=== PATIENT | female | born 1935 | race African-American/Black ===

== ENCOUNTER 2020-09-25 10:11 | Inpatient (IN) | payer MEDICARE, MEDICAID ==
[~2020-09-25] VITALS: Ht 170.2 cm; Wt 76.2 kg
[~2020-09-25 10:11] MED LIST: ALBU05 IH; AMBR5TAB3 PO; AMLO5TAB4 PO; ASPI-1079 PO; BUPR-102 PO; BUSP5TAB3 PO; CLON-457 PO; FAMO40TA7 PO; FURO-151 PO; HYDR30CR RC; LOVA20TA2 PO; POTA20TA12 PO; TIOT18CA3 IH; VIAG25 PO
[2020-09-25] MEDS ORDERED: ONDANSETRON HCL 4MG/2ML INJ IV ONE (11:00)
[2020-09-25 11:02] LABS: HEMATOCRIT. 45.2 % (36.0-48.0); HEMOGLOBIN. 14.7 g/dL (12.0-16.0); MEAN CORPUSCULAR HEMOGLOBIN 28.8 pg (28.0-32.0); MEAN CORPUSCULAR VOLUME 88.7 fL (81.0-99.0); MEAN PLATELET VOLUME 8.6 fl (7.4-10.4); PLATELET 140 x1000/uL (130-400); RED CELL DISTRIBUTION WIDTH 19.4 % (11.6-14.6)
[2020-09-25 11:07] LABS: CHLORIDE 105 mEq/L (98-107)
[2020-09-25 11:12] LABS: INR 1.1; PROTHROMBIN TIME 11.2 sec (9.6-11.0)
[2020-09-25 12:15] LABS: CLARITY URINE CLEAR (CLEAR); COLOR URINE YELLOW (YELLOW); KETONES URINE NEGATIVE (NEGATIVE); LEUKOCYTE ESTERASE URINE 3+ (NEGATIVE); NITRITE URINE NEGATIVE (NEGATIVE); OCCULT BLOOD URINE TRACE (NEGATIVE); PH URINE 7.5 (4.5-8.0); PROTEIN URINE 1+ (NEGATIVE)
[2020-09-25 12:41] LABS: ATYPICAL LYMPHOCYTES 1; PLATELET ESTIMATE NORMAL
[2020-09-25] MEDS ORDERED: CEFTRIAXONE 1 G PREMIX 50 ML IV ONE (12:45)
[2020-09-25] MEDS ORDERED: ONDANSETRON HCL 4MG/2ML INJ IV PRN (14:00)
[2020-09-25] MEDS ORDERED: DOCUSATE SODIUM 100MG CAPSULE PO PRN (14:00)
[2020-09-25] MEDS ORDERED: LEVOFLOXACIN 500MG PREMIX 100 ML IV NR (14:00)
[2020-09-25] MEDS ORDERED: FAMOTIDINE 40MG TABLET PO SCH (14:00)
[2020-09-25] MEDS ORDERED: MAGNESIUM/ALUMINUM HYDROXIDE/SIMETHICONE 30ML UDC PO PRN (14:00)
[2020-09-25] MEDS ORDERED: ALBUTEROL (0.5%) 2.5MG/0.5ML NEB HHN PRN (14:00)
[2020-09-25] MEDS ORDERED: GUAIFENESIN 200MG/10ML SUGAR FREE UDC PO PRN (14:00)
[2020-09-25] MEDS ORDERED: ACETAMINOPHEN 325MG TABLET PO PRN (14:00)
[2020-09-25] MEDS ORDERED: CLONIDINE 0.1MG TABLET PO PRN (14:00)
[2020-09-25] MEDS: BUSPIRONE HCL 5MG TABLET PO SCH (14:58)
[2020-09-25] MEDS: FUROSEMIDE 40MG/4ML VIAL IVP SCH (14:58)
[2020-09-25] MEDS: FAMOTIDINE 20MG TABLET PO SCH (14:58)
[2020-09-25] MEDS: AMLODIPINE 5MG TABLET PO SCH (21:35)
[2020-09-25] MEDS: ATORVASTATIN CALCIUM 10MG TABLET PO SCH (21:35)
[2020-09-26] VITALS (7 sets, daily range): BP systolic 129–154; BP diastolic 81–97
[2020-09-26] MEDS ORDERED: RIOC2.5T MT (01:25)
[2020-09-26] MEDS ORDERED: PRED10TA MT (01:25)
[2020-09-26] MEDS ORDERED: ASPI-1406 PO (01:25)
[2020-09-26] MEDS: FUROSEMIDE 40MG/4ML VIAL IVP SCH ×2 (06:21→18:05)
[2020-09-26 06:30] LABS: HEMOGLOBIN. 15.1 g/dL (12.0-16.0); MEAN CORPUSCULAR HEMOGLOBIN 29.1 pg (28.0-32.0); MEAN CORPUSCULAR VOLUME 88.2 fL (81.0-99.0); MEAN PLATELET VOLUME 8.8 fl (7.4-10.4); PLATELET 141 x1000/uL (130-400); RED BLOOD CELL COUNT 5.21 mill/uL (4.2-5.4); RED CELL DISTRIBUTION WIDTH 18.8 % (11.6-14.6)
[2020-09-26 06:39] LABS: CHLORIDE 103 mEq/L (98-107)
[2020-09-26] MEDS ORDERED: FUROSEMIDE 40MG TABLET PO SCH (09:00)
[2020-09-26] MEDS: AMLODIPINE 5MG TABLET PO SCH (09:23)
[2020-09-26] MEDS: ASPIRIN 81MG TABLET PO SCH (09:24)
[2020-09-26] MEDS: FAMOTIDINE 20MG TABLET PO SCH (09:24)
[2020-09-26] MEDS: BUSPIRONE HCL 5MG TABLET PO SCH (09:24)
[2020-09-26] MEDS: LEVOFLOXACIN 250MG PREMIX 50 ML IV SCH ×2 (11:00→18:07)
[2020-09-26] MEDS: DILTIAZEM HCL 60MG TABLET PO SCH ×2 (12:03→20:49)
[2020-09-26] MEDS ORDERED: LORA-250 PO (13:58)
[2020-09-26] MEDS ORDERED: BACL-141 PO (13:58)
[2020-09-26] MEDS ORDERED: SILDENAFIL CITRATE 20MG TABLET PO SCH (14:00)
[2020-09-26] MEDS ORDERED: DILTIAZEM HCL 60MG TABLET PO SCH (14:00)
[2020-09-26] MEDS ORDERED: RIOC2.5T PO (14:02)
[2020-09-26] MEDS ORDERED: *PATIENT'S OWN MEDICATION STORAGE XX SCH (14:30)
[2020-09-26] MEDS ORDERED: BACLOFEN 10MG TABLET PO PRN (14:45)
[2020-09-26] MEDS: AMBRISENTAN 10MG TABLET PO SCH (18:05)
[2020-09-26] MEDS: LORAZEPAM 1MG TABLET PO SCH (18:05)
[2020-09-26] MEDS: ATORVASTATIN CALCIUM 10MG TABLET PO SCH (20:49)
[2020-09-26] MEDS: HEMORRHOIDAL SUPP PR SCH (20:49)
[2020-09-27] VITALS: BP 110/82
[2020-09-27 00:06] LABS: PLATELET ESTIMATE NORMAL
[2020-09-27 04:30] VITALS: BP 135/93
[2020-09-27] MEDS: DILTIAZEM HCL 60MG TABLET PO SCH ×3 (06:16→20:46)
[2020-09-27] MEDS: FUROSEMIDE 40MG/4ML VIAL IVP SCH ×2 (06:16→16:32)
[2020-09-27 08:00] VITALS: BP 127/73
[2020-09-27] MEDS: LORAZEPAM 1MG TABLET PO SCH ×2 (08:00→16:32)
[2020-09-27] MEDS: LOSARTAN POTASSIUM 25 MG TABLET PO SCH (08:00)
[2020-09-27] MEDS: FAMOTIDINE 20MG TABLET PO SCH (08:00)
[2020-09-27] MEDS: AMBRISENTAN 10MG TABLET PO SCH (08:00)
[2020-09-27] MEDS: HEMORRHOIDAL SUPP PR SCH ×2 (08:00→20:46)
[2020-09-27] MEDS: BUSPIRONE HCL 5MG TABLET PO SCH (08:00)
[2020-09-27] MEDS: ASPIRIN 81MG TABLET PO SCH (08:00)
[2020-09-27 08:06] LABS: CHLORIDE 102 mEq/L (98-107)
[2020-09-27 08:37] LABS: HEMATOCRIT. 48.2 % (36.0-48.0); HEMOGLOBIN. 15.5 g/dL (12.0-16.0); MEAN CORPUSCULAR HEMOGLOBIN 28.5 pg (28.0-32.0); MEAN CORPUSCULAR VOLUME 88.4 fL (81.0-99.0); MEAN PLATELET VOLUME 8.6 fl (7.4-10.4); PLATELET 112 x1000/uL (130-400); RED BLOOD CELL COUNT 5.45 mill/uL (4.2-5.4); RED CELL DISTRIBUTION WIDTH 19.2 % (11.6-14.6)
[2020-09-27] MEDS: LEVOFLOXACIN 250MG PREMIX 50 ML IV SCH (10:39)
[2020-09-27] MEDS ORDERED: POTASSIUM CHLORIDE 20MEQ TABLET SR PO NR (11:15)
[2020-09-27 12:00] VITALS: BP 150/81
[2020-09-27] MEDS: TRAMADOL 50MG TABLET PO PRN (13:14)
[2020-09-27 14:21] LABS: PLATELET ESTIMATE SLIGHTLY DECREASED
[2020-09-27 16:00] VITALS: BP 125/79
[2020-09-27] MEDS: HYDROMORPHONE HCL/PF 2MG/ML CPJ IV PRN (17:14)
[2020-09-27 20:13] VITALS: BP 137/87
[2020-09-27] MEDS: ATORVASTATIN CALCIUM 10MG TABLET PO SCH (20:46)
[2020-09-28] VITALS: BP 125/88
[2020-09-28] MEDS: HYDROMORPHONE HCL/PF 2MG/ML CPJ IV PRN ×3 (03:17→17:09)
[2020-09-28 03:59] VITALS: BP 133/83
[2020-09-28] MEDS: FUROSEMIDE 40MG/4ML VIAL IVP SCH ×2 (06:06→18:58)
[2020-09-28] MEDS: DILTIAZEM HCL 60MG TABLET PO SCH ×3 (06:06→21:08)
[2020-09-28 07:07] LABS: CLARITY URINE CLEAR (CLEAR); COLOR URINE YELLOW (YELLOW); KETONES URINE NEGATIVE (NEGATIVE); LEUKOCYTE ESTERASE URINE TRACE (NEGATIVE); NITRITE URINE NEGATIVE (NEGATIVE); OCCULT BLOOD URINE NEGATIVE (NEGATIVE); PROTEIN URINE 1+ (NEGATIVE); UROBILINOGEN URINE 0.2 E.U./dL (0.2-1.0)
[2020-09-28 08:00] VITALS: BP 124/90
[2020-09-28] MEDS: ASPIRIN 81MG TABLET PO SCH (08:20)
[2020-09-28] MEDS: AMBRISENTAN 10MG TABLET PO SCH (08:20)
[2020-09-28] MEDS: LORAZEPAM 1MG TABLET PO SCH ×2 (08:20→18:58)
[2020-09-28] MEDS: HEMORRHOIDAL SUPP PR SCH ×2 (08:20→21:11)
[2020-09-28] MEDS: BUSPIRONE HCL 5MG TABLET PO SCH (08:20)
[2020-09-28] MEDS: LOSARTAN POTASSIUM 25 MG TABLET PO SCH (08:20)
[2020-09-28 11:23] LABS: CHLORIDE 102 mEq/L (98-107)
[2020-09-28 12:00] VITALS: BP 123/94
[2020-09-28] MEDS: FAMOTIDINE 20MG TABLET PO SCH (12:21)
[2020-09-28] MEDS: LEVOFLOXACIN 250MG PREMIX 50 ML IV SCH (12:21)
[2020-09-28 16:00] VITALS: BP 124/70
[2020-09-28 20:48] VITALS: BP 122/87
[2020-09-28] MEDS: ATORVASTATIN CALCIUM 10MG TABLET PO SCH (21:08)
[2020-09-28] MEDS: POTASSIUM CHLORIDE 20MEQ TABLET SR PO SCH (21:08)
[2020-09-29] VITALS: BP 115/69
[2020-09-29 04:00] VITALS: BP 119/73
[2020-09-29] MEDS: DILTIAZEM HCL 60MG TABLET PO SCH ×3 (06:28→21:12)
[2020-09-29] MEDS: FUROSEMIDE 40MG/4ML VIAL IVP SCH ×2 (06:29→17:58)
[2020-09-29 07:58] VITALS: BP 117/82
[2020-09-29] MEDS: POTASSIUM CHLORIDE 20MEQ TABLET SR PO SCH (08:32)
[2020-09-29] MEDS: LORAZEPAM 1MG TABLET PO SCH ×2 (08:32→17:58)
[2020-09-29] MEDS: BUSPIRONE HCL 5MG TABLET PO SCH (08:32)
[2020-09-29] MEDS: ASPIRIN 81MG TABLET PO SCH (08:32)
[2020-09-29] MEDS: HEMORRHOIDAL SUPP PR SCH ×2 (08:33→21:12)
[2020-09-29] MEDS: AMBRISENTAN 10MG TABLET PO SCH (08:33)
[2020-09-29] MEDS: LOSARTAN POTASSIUM 25 MG TABLET PO SCH (08:33)
[2020-09-29] MEDS: FAMOTIDINE 20MG TABLET PO SCH (08:33)
[2020-09-29] MEDS ORDERED: POTASSIUM CHLORIDE 20MEQ TABLET SR PO SCH (10:00)
[2020-09-29] MEDS: TRAMADOL 50MG TABLET PO PRN ×2 (10:26→17:59)
[2020-09-29] MEDS: LEVOFLOXACIN 250MG TABLET PO SCH (10:27)
[2020-09-29 12:09] VITALS: BP 121/80
[2020-09-29] MEDS ORDERED: FLUCONAZOLE 100MG TABLET PO NR (12:30)
[2020-09-29] MEDS: PHENAZOPYRIDINE HCL 100MG TABLET PO SCH ×2 (14:24→17:59)
[2020-09-29 16:10] VITALS: BP 145/85
[2020-09-29 16:47] LABS: FOLIC ACID (FOLATE) SERUM 19.5 ng/mL (>5.38)
[2020-09-29 20:00] VITALS: BP 127/80
[2020-09-29] MEDS: ATORVASTATIN CALCIUM 10MG TABLET PO SCH (21:12)
[2020-09-30] VITALS: BP 123/77
[2020-09-30] MEDS: TRAMADOL 50MG TABLET PO PRN (02:42)
[2020-09-30 04:00] VITALS: BP 149/94
[2020-09-30] MEDS: FUROSEMIDE 40MG/4ML VIAL IVP SCH ×2 (06:39→11:42)
[2020-09-30] MEDS: DILTIAZEM HCL 60MG TABLET PO SCH (06:39)
[2020-09-30 06:47] LABS: HEMATOCRIT. 47.5 % (36.0-48.0); HEMOGLOBIN. 15.5 g/dL (12.0-16.0); MEAN CORPUSCULAR HEMOGLOBIN 28.8 pg (28.0-32.0); MEAN CORPUSCULAR VOLUME 88.1 fL (81.0-99.0); MEAN PLATELET VOLUME 9.4 fl (7.4-10.4); PLATELET 124 x1000/uL (130-400); RED CELL DISTRIBUTION WIDTH 19.1 % (11.6-14.6)
[2020-09-30 08:06] VITALS: BP 158/97
[2020-09-30] MEDS: PHENAZOPYRIDINE HCL 100MG TABLET PO SCH ×3 (08:48→17:43)
[2020-09-30] MEDS: FAMOTIDINE 20MG TABLET PO SCH (08:48)
[2020-09-30] MEDS: BUSPIRONE HCL 5MG TABLET PO SCH (08:48)
[2020-09-30] MEDS: LOSARTAN POTASSIUM 25 MG TABLET PO SCH (08:48)
[2020-09-30] MEDS: ASPIRIN 81MG TABLET PO SCH (08:48)
[2020-09-30] MEDS: LORAZEPAM 1MG TABLET PO SCH ×2 (08:49→17:43)
[2020-09-30] MEDS: AMBRISENTAN 10MG TABLET PO SCH (08:49)
[2020-09-30] MEDS: POTASSIUM CHLORIDE 20MEQ TABLET SR PO SCH (08:49)
[2020-09-30] MEDS: HEMORRHOIDAL SUPP PR SCH ×2 (08:49→21:50)
[2020-09-30] MEDS: LEVOFLOXACIN 250MG TABLET PO SCH (11:43)
[2020-09-30] MEDS: DILTIAZEM HCL 90MG TABLET PO SCH ×2 (11:43→21:50)
[2020-09-30 11:59] VITALS: BP 130/89
[2020-09-30] MEDS ORDERED: CYANOCOBALAMIN 1000MCG/ML VIAL IM SCH (13:00)
[2020-09-30 16:06] VITALS: BP 126/85
[2020-09-30 18:37] LABS: PLATELET ESTIMATE DECREASED
[2020-09-30 20:00] VITALS: BP 132/85
[2020-09-30] MEDS: ATORVASTATIN CALCIUM 10MG TABLET PO SCH (21:50)
[2020-10-01] VITALS (7 sets, daily range): BP systolic 99–150; BP diastolic 65–96
[2020-10-01] MEDS: DILTIAZEM HCL 90MG TABLET PO SCH ×3 (06:24→21:13)
[2020-10-01 08:59] LABS: HEMATOCRIT. 48.8 % (36.0-48.0); HEMOGLOBIN. 15.5 g/dL (12.0-16.0); MEAN CORPUSCULAR HEMOGLOBIN 28.2 pg (28.0-32.0); MEAN CORPUSCULAR VOLUME 88.5 fL (81.0-99.0); MEAN PLATELET VOLUME 9.4 fl (7.4-10.4); PLATELET 127 x1000/uL (130-400); RED BLOOD CELL COUNT 5.51 mill/uL (4.2-5.4)
[2020-10-01] MEDS ORDERED: LOSARTAN POTASSIUM 50 MG TABLET PO SCH (09:00)
[2020-10-01] MEDS: LORAZEPAM 1MG TABLET PO SCH ×2 (09:37→17:07)
[2020-10-01] MEDS: HEMORRHOIDAL SUPP PR SCH ×2 (09:37→21:33)
[2020-10-01] MEDS: ASPIRIN 81MG TABLET PO SCH (09:37)
[2020-10-01] MEDS: AMBRISENTAN 10MG TABLET PO SCH (09:37)
[2020-10-01] MEDS: FAMOTIDINE 20MG TABLET PO SCH (09:37)
[2020-10-01] MEDS: PHENAZOPYRIDINE HCL 100MG TABLET PO SCH (09:38)
[2020-10-01] MEDS: FUROSEMIDE 40MG/4ML VIAL IVP SCH (09:38)
[2020-10-01] MEDS: POTASSIUM CHLORIDE 20MEQ TABLET SR PO SCH (09:38)
[2020-10-01 11:44] LABS: NUCLEATED RED BLOOD CELLS 1 /100 WBC
[2020-10-01 11:45] LABS: PLATELET ESTIMATE SLIGHTLY DECREASED
[2020-10-01] MEDS ORDERED: SODIUM CHLORIDE 0.45% 1,000 ML IV SCH (12:00)
[2020-10-01 17:14] LABS: CREATINE KINASE 81 IU/L (26-192)
[2020-10-01] MEDS: ATORVASTATIN CALCIUM 10MG TABLET PO SCH (21:32)
[2020-10-02] MEDS ORDERED: LOSARTAN POTASSIUM 100 MG TABLET PO SCH (09:00)
[2020-10-02] MEDS ORDERED: FUROSEMIDE 40MG TABLET PO SCH (09:00)
== END 2020-10-01 22:25 | DRG 291 ==
LOC: ER 10:11 → 6WST 12:32 → EDBEDREQ 12:35 → ENRESERV 22:30 → 6WST 23:45
PROVIDERS: ADMIT Hospitalist; ATTEND Hospitalist
DX: I11.0 Hypertensive heart disease with heart failure (principal); J96.01 Acute respiratory failure with hypoxia; J18.9 Pneumonia, unspecified organism; G82.50 Quadriplegia, unspecified; N17.9 Acute kidney failure, unspecified; J44.0 Chronic obstructive pulmonary disease with (acute) lower respiratory infection; I50.43 Acute on chronic combined systolic (congestive) and diastolic (congestive) heart failure; I48.91 Unspecified atrial fibrillation; M48.02 Spinal stenosis, cervical region; I25.10 Atherosclerotic heart disease of native coronary artery without angina pectoris; E78.5 Hyperlipidemia, unspecified; I27.21 Secondary pulmonary arterial hypertension; R74.01 Elevation of levels of liver transaminase levels; D69.6 Thrombocytopenia, unspecified; G89.29 Other chronic pain; I48.0 Paroxysmal atrial fibrillation; K59.00 Constipation, unspecified; M25.78 Osteophyte, vertebrae; M43.16 Spondylolisthesis, lumbar region; M48.061 Spinal stenosis, lumbar region without neurogenic claudication; R53.81 Other malaise; R26.9 Unspecified abnormalities of gait and mobility; M47.816 Spondylosis without myelopathy or radiculopathy, lumbar region; Z20.822 Contact with and (suspected) exposure to COVID-19; R29.6 Repeated falls; Z79.899 Other long term (current) drug therapy; Z82.49 Family history of ischemic heart disease and other diseases of the circulatory system; Z82.5 Family history of asthma and other chronic lower respiratory diseases; Z86.73 Personal history of transient ischemic attack (TIA), and cerebral infarction without residual deficits; Z90.49 Acquired absence of other specified parts of digestive tract; I25.2 Old myocardial infarction; Z91.81 History of falling; Z99.81 Dependence on supplemental oxygen
CPT/HCPCS: 36415; 70551; 71045; 71250; 72141; 72146; 72148; 76770; 80048; 80053; 80061; 81003; 82140; 82306; 82550; 82607; 82746; 83735; 83880; 84443; 84484; 85025; 87426; 92523; 93005; 93306; 93970; 96365; 97116; 97162; 97166; 97530; 97535; 99285; J0696; J1170; J1940; J1956; J2405; J3420

== ENCOUNTER 2020-10-01 22:30 | Inpatient (IN) | payer MEDICARE, MEDICAID ==
[~2020-10-01] VITALS: Ht 170.2 cm; Wt 74.8 kg
[2020-10-01 22:30] VITALS: BP 110/73
[~2020-10-01 22:30] MED LIST changes: -ASPI-1079 PO; +ASPI-1406 PO; +BACL-141 PO; +LORA-250 PO; +PRED10TA MT; +RIOC2.5T MT; +RIOC2.5T PO
[2020-10-01] MEDS ORDERED: MAGNESIUM/ALUMINUM HYDROXIDE/SIMETHICONE 30ML UDC PO PRN (23:00)
[2020-10-01] MEDS ORDERED: CLONIDINE 0.1MG TABLET PO PRN (23:00)
[2020-10-01] MEDS ORDERED: ALBUTEROL (0.5%) 2.5MG/0.5ML NEB HHN PRN (23:00)
[2020-10-01] MEDS ORDERED: TRAMADOL 50MG TABLET PO PRN (23:00)
[2020-10-01] MEDS ORDERED: GUAIFENESIN 200MG/10ML SUGAR FREE UDC PO PRN (23:00)
[2020-10-01] MEDS ORDERED: NON FORMULARY PATIENT HOME MED XX SCH (23:45)
[2020-10-01] MEDS ORDERED: ALBUTEROL (0.083%) 2.5MG/3ML NEB HHN PRN (23:45)
[2020-10-02] MEDS ORDERED: *PATIENT'S OWN MEDICATION STORAGE XX SCH (00:30)
[2020-10-02] MEDS: DILTIAZEM HCL 90MG TABLET PO SCH ×2 (06:53→13:54)
[2020-10-02 07:25] LABS: HEMATOCRIT. 42.8 % (36.0-48.0); MEAN CORPUSCULAR HEMOGLOBIN 28.8 pg (28.0-32.0); MEAN CORPUSCULAR VOLUME 88.3 fL (81.0-99.0); MEAN PLATELET VOLUME 9.8 fl (7.4-10.4); PLATELET 84 x1000/uL (130-400); RED BLOOD CELL COUNT 4.84 mill/uL (4.2-5.4); RED CELL DISTRIBUTION WIDTH 19.1 % (11.6-14.6)
[2020-10-02 08:00] VITALS: BP 118/74
[2020-10-02 08:12] LABS: CHLORIDE 104 mEq/L (98-107)
[2020-10-02] MEDS: BACLOFEN 10MG TABLET PO PRN (08:55)
[2020-10-02] MEDS: DOCUSATE SODIUM 100MG CAPSULE PO PRN (08:55)
[2020-10-02] MEDS: FAMOTIDINE 20MG TABLET PO SCH (08:55)
[2020-10-02] MEDS: AMBRISENTAN 10MG TAB PO SCH (08:57)
[2020-10-02] MEDS ORDERED: ASPIRIN 81MG TABLET PO SCH (09:00)
[2020-10-02] MEDS ORDERED: POTASSIUM CHLORIDE 20MEQ TABLET SR PO SCH (09:00)
[2020-10-02] MEDS: HEMORRHOIDAL SUPP PR SCH ×2 (13:44→21:00)
[2020-10-02 14:17] LABS: PLATELET ESTIMATE DECREASED
[2020-10-02 19:20] LABS: CLARITY URINE CLOUDY (CLEAR); COLOR URINE DARK YELLOW (YELLOW); KETONES URINE NEGATIVE (NEGATIVE); LEUKOCYTE ESTERASE URINE 1+ (NEGATIVE); NITRITE URINE POSITIVE (NEGATIVE); OCCULT BLOOD URINE 3+ (NEGATIVE); PROTEIN URINE 2+ (NEGATIVE); SPECIFIC GRAVITY URINE 1.016 (1.005-1.030)
[2020-10-02 20:00] VITALS: BP 126/74
[2020-10-02] MEDS: ATORVASTATIN CALCIUM 10MG TABLET PO SCH (22:34)
[2020-10-02] MEDS: DILTIAZEM HCL 60MG TABLET PO SCH (22:34)
[2020-10-03] VITALS (11 sets, daily range): BP systolic 123–142; BP diastolic 58–78
[2020-10-03] MEDS: DILTIAZEM HCL 60MG TABLET PO SCH ×3 (05:56→21:10)
[2020-10-03 07:01] LABS: CHLORIDE 106 mEq/L (98-107)
[2020-10-03 07:08] LABS: HEMOGLOBIN. 13.4 g/dL (12.0-16.0); MEAN CORPUSCULAR HEMOGLOBIN 28.5 pg (28.0-32.0); MEAN CORPUSCULAR VOLUME 87.4 fL (81.0-99.0); MEAN PLATELET VOLUME 9.1 fl (7.4-10.4); PLATELET 76 x1000/uL (130-400); RED BLOOD CELL COUNT 4.69 mill/uL (4.2-5.4); RED CELL DISTRIBUTION WIDTH 19.2 % (11.6-14.6)
[2020-10-03 07:11] LABS: FOLIC ACID (FOLATE) SERUM 11.2 ng/mL (>5.38)
[2020-10-03 07:21] LABS: PHOSPHORUS 2.8 mg/dL (2.5-4.9); TOTAL IRON BINDING CAPACITY 222 ug/dL (250-450)
[2020-10-03] MEDS: BACLOFEN 10MG TABLET PO PRN (08:52)
[2020-10-03] MEDS: DOCUSATE SODIUM 100MG CAPSULE PO PRN ×2 (08:52→17:59)
[2020-10-03] MEDS: HEMORRHOIDAL SUPP PR SCH ×2 (08:52→21:00)
[2020-10-03] MEDS: FAMOTIDINE 20MG TABLET PO SCH (08:52)
[2020-10-03] MEDS: AMBRISENTAN 10MG TAB PO SCH (08:53)
[2020-10-03 11:19] LABS: PLATELET ESTIMATE DECREASED
[2020-10-03] MEDS ORDERED: CLINDAMYCIN 600MG PREMIX 50 ML IV SCH (11:30)
[2020-10-03] MEDS ORDERED: SODIUM BICARBONATE 4% (2.4MEQ) 5ML VIAL IV ONE (12:23)
[2020-10-03] MEDS ORDERED: LIDOCAINE HCL 1% 20ML VIAL (Pyxis) INJ ONE (12:23)
[2020-10-03] MEDS ORDERED: IOHEXOL-300 100 ML BOTTLE ONE (12:32)
[2020-10-03] MEDS: LEVOFLOXACIN 250MG TABLET PO SCH (18:03)
[2020-10-03] MEDS: ATORVASTATIN CALCIUM 10MG TABLET PO SCH (21:09)
[2020-10-04] MEDS: DILTIAZEM HCL 60MG TABLET PO SCH ×3 (06:23→21:15)
[2020-10-04 08:00] VITALS: BP 144/82
[2020-10-04] MEDS: ASCORBIC ACID 500 MG TABLET PO SCH (09:04)
[2020-10-04] MEDS: DOCUSATE SODIUM 100MG CAPSULE PO PRN ×2 (09:04→18:14)
[2020-10-04] MEDS: FAMOTIDINE 20MG TABLET PO SCH (09:04)
[2020-10-04] MEDS: BACLOFEN 10MG TABLET PO PRN (09:05)
[2020-10-04] MEDS: FERROUS SULFATE 325MG TABLET PO SCH ×3 (09:05→18:14)
[2020-10-04] MEDS: HEMORRHOIDAL SUPP PR SCH ×2 (09:05→21:15)
[2020-10-04] MEDS: AMBRISENTAN 10MG TAB PO SCH (09:06)
[2020-10-04 10:01] LABS: HEMATOCRIT. 41.6 % (36.0-48.0); HEMOGLOBIN. 13.3 g/dL (12.0-16.0); MEAN CORPUSCULAR HEMOGLOBIN 28.4 pg (28.0-32.0); MEAN CORPUSCULAR VOLUME 88.9 fL (81.0-99.0); MEAN PLATELET VOLUME 9.3 fl (7.4-10.4); PLATELET 82 x1000/uL (130-400); RED BLOOD CELL COUNT 4.68 mill/uL (4.2-5.4); RED CELL DISTRIBUTION WIDTH 18.8 % (11.6-14.6)
[2020-10-04 10:16] LABS: CHLORIDE 105 mEq/L (98-107)
[2020-10-04] MEDS: LEVOFLOXACIN 250MG TABLET PO SCH (12:07)
[2020-10-04 20:00] VITALS: BP 128/83
[2020-10-04] MEDS: ATORVASTATIN CALCIUM 10MG TABLET PO SCH (21:15)
[2020-10-04 23:08] LABS: PLATELET ESTIMATE DECREASED
[2020-10-05] MEDS: DILTIAZEM HCL 60MG TABLET PO SCH ×3 (05:15→21:16)
[2020-10-05 06:53] LABS: CHLORIDE 109 mEq/L (98-107)
[2020-10-05] MEDS ORDERED: POTASSIUM CHLORIDE 20MEQ TABLET SR PO SCH (07:30)
[2020-10-05 07:48] LABS: HEMATOCRIT. 40.9 % (36.0-48.0); HEMOGLOBIN. 13.4 g/dL (12.0-16.0); MEAN CORPUSCULAR HEMOGLOBIN 28.7 pg (28.0-32.0); MEAN CORPUSCULAR VOLUME 87.6 fL (81.0-99.0); MEAN PLATELET VOLUME 9.6 fl (7.4-10.4); PLATELET 91 x1000/uL (130-400); RED BLOOD CELL COUNT 4.67 mill/uL (4.2-5.4); RED CELL DISTRIBUTION WIDTH 18.9 % (11.6-14.6)
[2020-10-05 08:01] VITALS: BP 143/88
[2020-10-05] MEDS: DOCUSATE SODIUM 100MG CAPSULE PO PRN (08:51)
[2020-10-05] MEDS: ASCORBIC ACID 500 MG TABLET PO SCH (08:51)
[2020-10-05] MEDS: FERROUS SULFATE 325MG TABLET PO SCH ×3 (08:51→17:00)
[2020-10-05] MEDS: FAMOTIDINE 20MG TABLET PO SCH (08:52)
[2020-10-05] MEDS: HEMORRHOIDAL SUPP PR SCH ×2 (08:52→21:17)
[2020-10-05] MEDS: AMBRISENTAN 10MG TAB PO SCH (08:54)
[2020-10-05] MEDS: LEVOFLOXACIN 250MG TABLET PO SCH (12:10)
[2020-10-05] MEDS: ACETAMINOPHEN 325MG TABLET PO PRN (17:03)
[2020-10-05 20:00] VITALS: BP 163/95
[2020-10-05] MEDS: ATORVASTATIN CALCIUM 10MG TABLET PO SCH (21:17)
[2020-10-05 23:40] LABS: PLATELET ESTIMATE DECREASED
[2020-10-06] MEDS: DILTIAZEM HCL 60MG TABLET PO SCH ×3 (05:48→21:49)
[2020-10-06 06:45] LABS: HEMATOCRIT. 47.1 % (36.0-48.0); HEMOGLOBIN. 15.1 g/dL (12.0-16.0); MEAN CORPUSCULAR HEMOGLOBIN 28.4 pg (28.0-32.0); MEAN CORPUSCULAR VOLUME 88.7 fL (81.0-99.0); PLATELET 121 x1000/uL (130-400); RED BLOOD CELL COUNT 5.31 mill/uL (4.2-5.4); RED CELL DISTRIBUTION WIDTH 19.7 % (11.6-14.6)
[2020-10-06 07:29] LABS: CHLORIDE 110 mEq/L (98-107)
[2020-10-06 08:03] VITALS: BP 142/81
[2020-10-06] MEDS: FAMOTIDINE 20MG TABLET PO SCH (08:10)
[2020-10-06] MEDS: DOCUSATE SODIUM 100MG CAPSULE PO PRN (08:10)
[2020-10-06] MEDS: FERROUS SULFATE 325MG TABLET PO SCH ×3 (08:11→16:23)
[2020-10-06] MEDS: HEMORRHOIDAL SUPP PR SCH ×2 (08:11→21:00)
[2020-10-06] MEDS: ASCORBIC ACID 500 MG TABLET PO SCH (08:11)
[2020-10-06] MEDS: AMBRISENTAN 10MG TAB PO SCH (08:11)
[2020-10-06] MEDS: LEVOFLOXACIN 250MG TABLET PO SCH (11:15)
[2020-10-06 12:16] LABS: PLATELET ESTIMATE DECREASED
[2020-10-06] MEDS: ACETAMINOPHEN 325MG TABLET PO PRN (16:23)
[2020-10-06 20:00] VITALS: BP 146/102
[2020-10-06] MEDS: ATORVASTATIN CALCIUM 10MG TABLET PO SCH (21:48)
[2020-10-07] MEDS: DILTIAZEM HCL 60MG TABLET PO SCH ×3 (06:47→22:37)
[2020-10-07] MEDS: FERROUS SULFATE 325MG TABLET PO SCH ×3 (08:21→16:46)
[2020-10-07] MEDS: ACETAMINOPHEN 325MG TABLET PO PRN (08:21)
[2020-10-07] MEDS: ASCORBIC ACID 500 MG TABLET PO SCH (08:22)
[2020-10-07] MEDS: AMBRISENTAN 10MG TAB PO SCH (08:22)
[2020-10-07] MEDS: DOCUSATE SODIUM 100MG CAPSULE PO PRN (08:22)
[2020-10-07] MEDS: HEMORRHOIDAL SUPP PR SCH ×2 (08:22→22:37)
[2020-10-07] MEDS: FAMOTIDINE 20MG TABLET PO SCH (08:22)
[2020-10-07] MEDS: LOSARTAN POTASSIUM 25 MG TABLET PO SCH (09:42)
[2020-10-07] MEDS: LEVOFLOXACIN 250MG TABLET PO SCH (10:49)
[2020-10-07 20:00] VITALS: BP 142/84
[2020-10-07] MEDS: ATORVASTATIN CALCIUM 10MG TABLET PO SCH (22:37)
[2020-10-08] MEDS: DILTIAZEM HCL 60MG TABLET PO SCH ×3 (06:07→21:16)
[2020-10-08 08:16] LABS: HEMATOCRIT. 40.7 % (36.0-48.0); HEMOGLOBIN. 13.1 g/dL (12.0-16.0); MEAN CORPUSCULAR HEMOGLOBIN 28.4 pg (28.0-32.0); MEAN CORPUSCULAR VOLUME 88.1 fL (81.0-99.0); PLATELET 144 x1000/uL (130-400); RED BLOOD CELL COUNT 4.63 mill/uL (4.2-5.4)
[2020-10-08 08:18] LABS: CHLORIDE 112 mEq/L (98-107)
[2020-10-08 08:23] VITALS: BP 153/90
[2020-10-08] MEDS: ASCORBIC ACID 500 MG TABLET PO SCH (08:24)
[2020-10-08] MEDS: LOSARTAN POTASSIUM 25 MG TABLET PO SCH (08:25)
[2020-10-08] MEDS: ACETAMINOPHEN 325MG TABLET PO PRN (08:25)
[2020-10-08] MEDS: FERROUS SULFATE 325MG TABLET PO SCH ×3 (08:25→16:03)
[2020-10-08] MEDS: FAMOTIDINE 20MG TABLET PO SCH (08:25)
[2020-10-08] MEDS: AMBRISENTAN 10MG TAB PO SCH (08:26)
[2020-10-08] MEDS: HEMORRHOIDAL SUPP PR SCH ×2 (08:26→21:16)
[2020-10-08] MEDS: LEVOFLOXACIN 250MG TABLET PO SCH (10:00)
[2020-10-08 20:00] VITALS: BP 143/87
[2020-10-08] MEDS: ATORVASTATIN CALCIUM 10MG TABLET PO SCH (21:15)
[2020-10-08 22:06] LABS: PLATELET ESTIMATE NORMAL
[2020-10-09] MEDS: DILTIAZEM HCL 60MG TABLET PO SCH ×3 (05:44→21:09)
[2020-10-09 07:52] VITALS: BP_SYST 153; BP_SYST 156; BP_DIAS 87; BP_DIAS 88
[2020-10-09] MEDS: FAMOTIDINE 20MG TABLET PO SCH (08:41)
[2020-10-09] MEDS: ASCORBIC ACID 500 MG TABLET PO SCH (08:41)
[2020-10-09] MEDS: LOSARTAN POTASSIUM 25 MG TABLET PO SCH (08:41)
[2020-10-09] MEDS: DOCUSATE SODIUM 100MG CAPSULE PO PRN ×2 (08:41→16:51)
[2020-10-09] MEDS: FERROUS SULFATE 325MG TABLET PO SCH ×3 (08:41→16:51)
[2020-10-09] MEDS: HEMORRHOIDAL SUPP PR SCH ×2 (08:49→21:46)
[2020-10-09] MEDS: AMBRISENTAN 10MG TAB PO SCH (08:49)
[2020-10-09] MEDS: BACLOFEN 10MG TABLET PO PRN (13:47)
[2020-10-09] MEDS: ACETAMINOPHEN 325MG TABLET PO PRN (13:47)
[2020-10-09 20:00] VITALS: BP 121/80
[2020-10-09] MEDS: ATORVASTATIN CALCIUM 10MG TABLET PO SCH (21:07)
[2020-10-10] MEDS: DILTIAZEM HCL 60MG TABLET PO SCH ×3 (05:29→21:17)
[2020-10-10 06:53] LABS: HEMATOCRIT. 38.6 % (36.0-48.0); HEMOGLOBIN. 12.7 g/dL (12.0-16.0); MEAN CORPUSCULAR VOLUME 88.4 fL (81.0-99.0); PLATELET 174 x1000/uL (130-400); RED BLOOD CELL COUNT 4.37 mill/uL (4.2-5.4); RED CELL DISTRIBUTION WIDTH 19.2 % (11.6-14.6)
[2020-10-10] MEDS: FAMOTIDINE 20MG TABLET PO SCH (08:42)
[2020-10-10] MEDS: LOSARTAN POTASSIUM 25 MG TABLET PO SCH (08:42)
[2020-10-10] MEDS: ASCORBIC ACID 500 MG TABLET PO SCH (08:42)
[2020-10-10] MEDS: FERROUS SULFATE 325MG TABLET PO SCH ×3 (08:42→16:50)
[2020-10-10] MEDS: DOCUSATE SODIUM 100MG CAPSULE PO PRN (08:42)
[2020-10-10] MEDS: BACLOFEN 10MG TABLET PO PRN (08:42)
[2020-10-10] MEDS: HEMORRHOIDAL SUPP PR SCH ×2 (08:46→21:17)
[2020-10-10] MEDS: AMBRISENTAN 10MG TAB PO SCH (08:46)
[2020-10-10] MEDS ORDERED: POTASSIUM CHLORIDE 20MEQ TABLET SR PO NR ×2 (09:00→16:00)
[2020-10-10 09:51] VITALS: BP 129/84
[2020-10-10] MEDS: ACETAMINOPHEN 325MG TABLET PO PRN (10:44)
[2020-10-10 14:04] LABS: NUCLEATED RED BLOOD CELLS 1 /100 WBC; PLATELET ESTIMATE NORMAL
[2020-10-10 16:12] LABS: PHOSPHORUS 3.1 mg/dL (2.5-4.9)
[2020-10-10 20:00] VITALS: BP 125/84
[2020-10-10] MEDS: ATORVASTATIN CALCIUM 10MG TABLET PO SCH (21:17)
[2020-10-11] MEDS: DILTIAZEM HCL 60MG TABLET PO SCH ×2 (05:47→12:56)
[2020-10-11 06:42] LABS: HEMOGLOBIN. 13.2 g/dL (12.0-16.0); MEAN CORPUSCULAR HEMOGLOBIN 28.6 pg (28.0-32.0); MEAN PLATELET VOLUME 8.6 fl (7.4-10.4); PLATELET 195 x1000/uL (130-400); RED BLOOD CELL COUNT 4.61 mill/uL (4.2-5.4); RED CELL DISTRIBUTION WIDTH 19.4 % (11.6-14.6)
[2020-10-11 06:48] LABS: CHLORIDE 110 mEq/L (98-107)
[2020-10-11 08:00] VITALS: BP 116/82
[2020-10-11] MEDS: AMBRISENTAN 10MG TAB PO SCH (09:05)
[2020-10-11] MEDS: FERROUS SULFATE 325MG TABLET PO SCH ×2 (09:05→12:42)
[2020-10-11] MEDS: FAMOTIDINE 20MG TABLET PO SCH (09:05)
[2020-10-11] MEDS: ASCORBIC ACID 500 MG TABLET PO SCH (09:05)
[2020-10-11] MEDS: LOSARTAN POTASSIUM 25 MG TABLET PO SCH (09:05)
[2020-10-11] MEDS: HEMORRHOIDAL SUPP PR SCH (09:11)
[2020-10-11 10:57] VITALS: BP 116/82
[2020-10-11 17:09] LABS: 25-HYDROXY VITAMIN D3 7.5 ng/mL (.)
[2020-10-12 09:28] LABS: PLATELET ESTIMATE NORMAL
== END 2020-10-11 14:12 | disposition home health service (06) | DRG 551 ==
PROVIDERS: ADMIT Physical Medicine & Rehabilitation Spinal Cord Injury Medicine; ATTEND Hospitalist
PROC: 06H03DZ Insertion of Intraluminal Device into Inferior Vena Cava, Percutaneous Approach (ICD-10-PCS; principal; 2020-10-03)
DX: M48.061 Spinal stenosis, lumbar region without neurogenic claudication (principal); G82.50 Quadriplegia, unspecified; J96.21 Acute and chronic respiratory failure with hypoxia; N17.9 Acute kidney failure, unspecified; I13.0 Hypertensive heart and chronic kidney disease with heart failure and stage 1 through stage 4 chronic kidney disease, or unspecified chronic kidney disease; I82.411 Acute embolism and thrombosis of right femoral vein; N13.6 Pyonephrosis; S37.20XA Unspecified injury of bladder, initial encounter; M48.02 Spinal stenosis, cervical region; D69.6 Thrombocytopenia, unspecified; E78.5 Hyperlipidemia, unspecified; N18.9 Chronic kidney disease, unspecified; I50.9 Heart failure, unspecified; R74.01 Elevation of levels of liver transaminase levels; J44.9 Chronic obstructive pulmonary disease, unspecified; I48.0 Paroxysmal atrial fibrillation; I25.10 Atherosclerotic heart disease of native coronary artery without angina pectoris; R29.6 Repeated falls; R53.81 Other malaise; E66.9 Obesity, unspecified; G89.29 Other chronic pain; K59.00 Constipation, unspecified; M43.16 Spondylolisthesis, lumbar region; M25.78 Osteophyte, vertebrae; I27.21 Secondary pulmonary arterial hypertension; K64.9 Unspecified hemorrhoids; M47.816 Spondylosis without myelopathy or radiculopathy, lumbar region; X58.XXXA Exposure to other specified factors, initial encounter; R31.9 Hematuria, unspecified; N31.9 Neuromuscular dysfunction of bladder, unspecified; Z86.73 Personal history of transient ischemic attack (TIA), and cerebral infarction without residual deficits; Z90.49 Acquired absence of other specified parts of digestive tract; I25.2 Old myocardial infarction; Z91.81 History of falling; Z82.49 Family history of ischemic heart disease and other diseases of the circulatory system; Z99.81 Dependence on supplemental oxygen; Z95.828 Presence of other vascular implants and grafts; Y93.89 Activity, other specified; Y92.89 Other specified places as the place of occurrence of the external cause; Y99.8 Other external cause status; Z68.25 Body mass index [BMI] 25.0-25.9, adult
CPT/HCPCS: 36415; 37191; 74018; 80048; 80053; 81003; 82306; 82728; 82746; 83540; 83550; 83735; 84100; 84134; 85025; 92523; 92610; 93970; 94640; 97110; 97116; 97162; 97166; 97530; 97535; C1769; C1880; C1887; J1644; J3490; Q9967; A4315; A5200

== ENCOUNTER 2020-10-26 08:16 | Inpatient (IN) | payer MEDICARE, MEDICAID ==
[~2020-10-26] VITALS: Ht 170.2 cm; Wt 81.2 kg
[2020-10-26] MEDS ORDERED: FUROSEMIDE 40MG/4ML VIAL IV ONE (08:45)
[2020-10-26 09:48] LABS: HEMATOCRIT. 37.3 % (36.0-48.0); HEMOGLOBIN. 11.6 g/dL (12.0-16.0); MEAN CORPUSCULAR HEMOGLOBIN 28.6 pg (28.0-32.0); MEAN CORPUSCULAR VOLUME 92.3 fL (81.0-99.0); MEAN PLATELET VOLUME 8.6 fl (7.4-10.4); PLATELET 218 x1000/uL (130-400); RED BLOOD CELL COUNT 4.04 mill/uL (4.2-5.4); RED CELL DISTRIBUTION WIDTH 19.3 % (11.6-14.6)
[2020-10-26 09:52] LABS: CHLORIDE 103 mEq/L (98-107)
[2020-10-26 09:53] LABS: INR 1.1; PROTHROMBIN TIME 11.4 sec (9.6-11.0)
[2020-10-26 11:08] LABS: PLATELET ESTIMATE NORMAL
[2020-10-26] MEDS ORDERED: ALBUTEROL (0.083%) 2.5MG/3ML NEB INH PRN (14:00)
[2020-10-26] MEDS ORDERED: ENOXAPARIN 40MG/0.4ML SYR SUBCUT SCH (14:00)
[2020-10-26] MEDS ORDERED: GUAIFENESIN 200MG/10ML SUGAR FREE UDC PO PRN (14:00)
[2020-10-26] MEDS ORDERED: AMLODIPINE 10MG TABLET PO SCH ×2 (14:00→17:00)
[2020-10-26] MEDS ORDERED: HYDROCORTISONE 2.5% RECTAL CREAM 30GM PR PRN (14:00)
[2020-10-26] MEDS ORDERED: MAGNESIUM/ALUMINUM HYDROXIDE/SIMETHICONE 30ML UDC PO PRN (14:00)
[2020-10-26] MEDS ORDERED: FUROSEMIDE 40MG/4ML VIAL IV SCH (14:00)
[2020-10-26] MEDS ORDERED: BACLOFEN 10MG TABLET PO PRN (14:00)
[2020-10-26] MEDS ORDERED: CLONIDINE 0.1MG TABLET PO PRN (14:00)
[2020-10-26] MEDS ORDERED: DOCUSATE SODIUM 100MG CAPSULE PO PRN (14:00)
[2020-10-26] MEDS ORDERED: FAMOTIDINE 40MG TABLET PO SCH (14:00)
[2020-10-26] MEDS ORDERED: POTASSIUM CHLORIDE 20MEQ TABLET SR PO SCH (14:15)
[2020-10-26] MEDS ORDERED: PREDNISONE 10MG TABLET PO SCH (14:15)
[2020-10-26 15:16] VITALS: BP 118/71
[2020-10-26 16:00] VITALS: BP 131/77
[2020-10-26] MEDS: FUROSEMIDE 40MG/4ML VIAL IV SCH (16:13)
[2020-10-26] MEDS: LORAZEPAM 1MG TABLET PO SCH (16:14)
[2020-10-26] MEDS: ENOXAPARIN 80MG/0.8ML SYR SUBCUT SCH (16:15)
[2020-10-26] MEDS: SILDENAFIL CITRATE 20MG TABLET PO SCH ×2 (16:20→21:06)
[2020-10-26] MEDS: POTASSIUM CHLORIDE 20MEQ TABLET SR PO SCH ×2 (16:20→21:08)
[2020-10-26] MEDS ORDERED: ALBUTEROL (0.083%) 2.5MG/3ML NEB HHN PRN (16:45)
[2020-10-26 17:03] LABS: BG BASE EXCESS 5.9 mmol/L (-2.0-2.0); BG CARBOXYHEMOGLOBIN 0.3 % (0.5-1.5); BG DEOXYHEMOGLOBIN 1.1 % (0.0-5.0); BG HCO3 ACT 31.4 mmol/L (22.0-26.0); BG METHEMOGLOBIN 0.2 % (0.0-1.5); BG OXYGEN SATURATION 98.9 % (92.0-98.5); BG OXYHEMOGLOBIN 98.4 % (94.0-97.0); BG PCO2 49.7 mmHg (35.0-45.0); BG PH 7.418 (7.350-7.450); BG SAMPLE SITE RIGHT RADIAL; BG TOTAL HEMOGLOBIN 11.6 g/dL (12.0-18.0); BG VENT MODE NASAL CANNULA
[2020-10-26] MEDS: BUPROPION HCL 150MG TABLET XL 24HR PO SCH (17:12)
[2020-10-26] MEDS: BUSPIRONE HCL 5MG TABLET PO SCH (17:13)
[2020-10-26] MEDS: FAMOTIDINE 20MG TABLET PO SCH (17:13)
[2020-10-26] MEDS: DILTIAZEM HCL 30MG TABLET PO SCH (17:14)
[2020-10-26 20:00] VITALS: BP 109/65
[2020-10-26] MEDS: ALBUTEROL (0.083%) 2.5MG/3ML NEB INH SCH (20:24)
[2020-10-27] VITALS: BP 107/65
[2020-10-27] MEDS: ALBUTEROL (0.083%) 2.5MG/3ML NEB INH SCH ×6 (00:01→20:55)
[2020-10-27 04:00] VITALS: BP 107/68
[2020-10-27] MEDS: DILTIAZEM HCL 30MG TABLET PO SCH ×4 (05:04→17:08)
[2020-10-27] MEDS: SILDENAFIL CITRATE 20MG TABLET PO SCH ×3 (06:07→21:59)
[2020-10-27 06:47] LABS: BASOPHILS % 0.3 % (0.0-2.0); EOSINOPHILS % 0.3 % (0.0-5.0); HEMATOCRIT. 32.3 % (36.0-48.0); HEMOGLOBIN. 10.5 g/dL (12.0-16.0); LYMPHOCYTES % 11.7 % (20.0-50.0); MEAN CORPUSCULAR HEMOGLOBIN 28.6 pg (28.0-32.0); MEAN CORPUSCULAR VOLUME 88.2 fL (81.0-99.0); MEAN PLATELET VOLUME 8.4 fl (7.4-10.4); MONOCYTES % 13.1 % (2.0-8.0); NEUTROPHILS % 74.6 % (40.0-76.0); PLATELET 205 x1000/uL (130-400); RED BLOOD CELL COUNT 3.66 mill/uL (4.2-5.4); RED CELL DISTRIBUTION WIDTH 18.5 % (11.6-14.6)
[2020-10-27 07:40] LABS: CHLORIDE 104 mEq/L (98-107)
[2020-10-27 08:00] VITALS: BP 124/75
[2020-10-27] MEDS: BUPROPION HCL 150MG TABLET XL 24HR PO SCH (08:57)
[2020-10-27] MEDS: PREDNISONE 20MG TABLET PO SCH (08:57)
[2020-10-27] MEDS: POTASSIUM CHLORIDE 20MEQ TABLET SR PO SCH ×2 (08:57→17:07)
[2020-10-27] MEDS: FAMOTIDINE 20MG TABLET PO SCH (08:57)
[2020-10-27] MEDS: BUSPIRONE HCL 5MG TABLET PO SCH (08:57)
[2020-10-27] MEDS: LORAZEPAM 1MG TABLET PO SCH ×2 (08:57→17:07)
[2020-10-27] MEDS: ASPIRIN 81MG EC TABLET PO SCH (08:57)
[2020-10-27] MEDS: ENOXAPARIN 80MG/0.8ML SYR SUBCUT SCH ×2 (08:58→21:59)
[2020-10-27] MEDS: FUROSEMIDE 40MG/4ML VIAL IV SCH ×3 (08:58→22:00)
[2020-10-27] MEDS ORDERED: ASPIRIN 81MG EC TABLET PO SCH (09:00)
[2020-10-27 12:00] VITALS: BP 115/84
[2020-10-27 16:00] VITALS: BP 111/70
[2020-10-27] MEDS: ACETAMINOPHEN 325MG TABLET PO PRN (17:38)
[2020-10-27 20:00] VITALS: BP 114/68
[2020-10-28] VITALS: BP 113/73
[2020-10-28] MEDS: ALBUTEROL (0.083%) 2.5MG/3ML NEB INH SCH ×5 (00:43→15:48)
[2020-10-28] MEDS: DILTIAZEM HCL 30MG TABLET PO SCH ×5 (01:02→23:39)
[2020-10-28 04:00] VITALS: BP 120/74
[2020-10-28] MEDS: ACETAMINOPHEN 325MG TABLET PO PRN ×2 (04:16→14:16)
[2020-10-28] MEDS: SILDENAFIL CITRATE 20MG TABLET PO SCH ×3 (06:31→21:49)
[2020-10-28] MEDS: FUROSEMIDE 40MG/4ML VIAL IV SCH ×3 (06:32→23:31)
[2020-10-28 07:58] VITALS: BP 116/69
[2020-10-28] MEDS ORDERED: METOLAZONE 2.5MG TABLET PO NR (08:00)
[2020-10-28] MEDS: BUSPIRONE HCL 5MG TABLET PO SCH (08:46)
[2020-10-28] MEDS: PREDNISONE 20MG TABLET PO SCH (08:46)
[2020-10-28] MEDS: POTASSIUM CHLORIDE 20MEQ TABLET SR PO SCH ×2 (08:46→17:33)
[2020-10-28] MEDS: BUPROPION HCL 150MG TABLET XL 24HR PO SCH (08:46)
[2020-10-28] MEDS: LORAZEPAM 1MG TABLET PO SCH ×2 (08:46→17:33)
[2020-10-28] MEDS: ASPIRIN 81MG EC TABLET PO SCH (08:47)
[2020-10-28] MEDS: FAMOTIDINE 20MG TABLET PO SCH (08:47)
[2020-10-28] MEDS ORDERED: ENOXAPARIN 80MG/0.8ML SYR SUBCUT SCH (09:00)
[2020-10-28 11:18] LABS: HEMATOCRIT. 35.9 % (36.0-48.0); HEMOGLOBIN. 11.4 g/dL (12.0-16.0); MEAN CORPUSCULAR HEMOGLOBIN 28.2 pg (28.0-32.0); MEAN CORPUSCULAR VOLUME 88.3 fL (81.0-99.0); PLATELET 254 x1000/uL (130-400); RED BLOOD CELL COUNT 4.06 mill/uL (4.2-5.4); RED CELL DISTRIBUTION WIDTH 18.6 % (11.6-14.6)
[2020-10-28 11:20] LABS: CHLORIDE 101 mEq/L (98-107)
[2020-10-28 11:42] VITALS: BP 117/73
[2020-10-28] MEDS ORDERED: BACLOFEN 10MG TABLET PO PRN (14:41)
[2020-10-28 15:55] LABS: PLATELET ESTIMATE NORMAL
[2020-10-28 16:00] VITALS: BP 142/76
[2020-10-28] MEDS: APIXABAN 2.5 MG TABLET PO SCH (17:33)
[2020-10-28] MEDS ORDERED: AMBR10TA3 MT (18:10)
[2020-10-28] MEDS ORDERED: NON FORMULARY PATIENT HOME MED XX SCH (18:15)
[2020-10-28] MEDS ORDERED: IOHEXOL-350 100 ML BOTTLE ONE (19:05)
[2020-10-28 20:00] VITALS: BP 110/62
[2020-10-28] MEDS: AMBRISENTAN 10MG TABLET PO SCH (21:51)
[2020-10-29] VITALS: BP 122/77
[2020-10-29] MEDS: ALBUTEROL (0.083%) 2.5MG/3ML NEB INH SCH ×4 (00:43→12:32)
[2020-10-29 04:00] VITALS: BP 135/88
[2020-10-29] MEDS: FUROSEMIDE 40MG/4ML VIAL IV SCH (06:28)
[2020-10-29] MEDS: SILDENAFIL CITRATE 20MG TABLET PO SCH ×2 (06:32→13:23)
[2020-10-29] MEDS: DILTIAZEM HCL 30MG TABLET PO SCH ×2 (06:32→13:24)
[2020-10-29] MEDS: ACETAMINOPHEN 325MG TABLET PO PRN (06:34)
[2020-10-29 07:15] LABS: HEMATOCRIT. 33.5 % (36.0-48.0); HEMOGLOBIN. 10.6 g/dL (12.0-16.0); MEAN CORPUSCULAR HEMOGLOBIN 28.1 pg (28.0-32.0); MEAN CORPUSCULAR VOLUME 88.6 fL (81.0-99.0); MEAN PLATELET VOLUME 9.1 fl (7.4-10.4); PLATELET 270 x1000/uL (130-400); RED BLOOD CELL COUNT 3.79 mill/uL (4.2-5.4); RED CELL DISTRIBUTION WIDTH 18.7 % (11.6-14.6)
[2020-10-29 08:00] VITALS: BP 129/73
[2020-10-29] MEDS: POTASSIUM CHLORIDE 20MEQ TABLET SR PO SCH (08:55)
[2020-10-29] MEDS: FAMOTIDINE 20MG TABLET PO SCH (08:55)
[2020-10-29] MEDS: ASPIRIN 81MG EC TABLET PO SCH (08:55)
[2020-10-29] MEDS: APIXABAN 2.5 MG TABLET PO SCH (08:55)
[2020-10-29] MEDS: LORAZEPAM 1MG TABLET PO SCH (08:55)
[2020-10-29] MEDS: PREDNISONE 20MG TABLET PO SCH (08:55)
[2020-10-29] MEDS: BUPROPION HCL 150MG TABLET XL 24HR PO SCH (08:55)
[2020-10-29] MEDS: BUSPIRONE HCL 5MG TABLET PO SCH (08:55)
[2020-10-29] MEDS: AMBRISENTAN 10MG TABLET PO SCH (08:56)
[2020-10-29 12:00] VITALS: BP 115/79
[2020-10-29 13:14] LABS: PLATELET ESTIMATE NORMAL
[2020-10-29] MEDS ORDERED: FUROSEMIDE 40MG TABLET PO SCH (17:00)
== END 2020-10-29 16:35 | disposition home or self-care (01) | DRG 291 ==
LOC: ER 08:27 → 5WST 10:39 → EDBEDREQ 10:46 → ENRESERV 12:14
PROVIDERS: ADMIT Hospitalist; ATTEND Hospitalist
DX: I11.0 Hypertensive heart disease with heart failure (principal); J96.20 Acute and chronic respiratory failure, unspecified whether with hypoxia or hypercapnia; I48.19 Other persistent atrial fibrillation; E44.1 Mild protein-calorie malnutrition; D68.59 Other primary thrombophilia; I50.33 Acute on chronic diastolic (congestive) heart failure; I42.9 Cardiomyopathy, unspecified; E78.00 Pure hypercholesterolemia, unspecified; E78.5 Hyperlipidemia, unspecified; E87.6 Hypokalemia; I25.10 Atherosclerotic heart disease of native coronary artery without angina pectoris; I25.2 Old myocardial infarction; I27.21 Secondary pulmonary arterial hypertension; J44.9 Chronic obstructive pulmonary disease, unspecified; K64.9 Unspecified hemorrhoids; M48.061 Spinal stenosis, lumbar region without neurogenic claudication; M47.9 Spondylosis, unspecified; E66.9 Obesity, unspecified; R53.81 Other malaise; R26.2 Difficulty in walking, not elsewhere classified; I50.82 Biventricular heart failure; Z95.828 Presence of other vascular implants and grafts; Z99.81 Dependence on supplemental oxygen; Z82.49 Family history of ischemic heart disease and other diseases of the circulatory system; Z86.718 Personal history of other venous thrombosis and embolism; Z87.891 Personal history of nicotine dependence; Z90.49 Acquired absence of other specified parts of digestive tract; Z91.81 History of falling; Z68.28 Body mass index [BMI] 28.0-28.9, adult; Z79.01 Long term (current) use of anticoagulants
CPT/HCPCS: 36415; 36600; 71045; 74174; 80048; 80053; 82375; 82805; 83735; 83880; 84484; 85025; 85379; 93005; 93970; 94640; 99285; J1650; J1940; J7512; Q9967

== ENCOUNTER 2021-01-05 10:15 | Inpatient (IN) | payer MEDICARE, MEDICAID ==
[~2021-01-05] VITALS: Ht 167.6 cm; Wt 85.3 kg
[~2021-01-05 10:15] MED LIST changes: +AMBR10TA3 MT
[2021-01-05] MEDS ORDERED: IPRATROPIUM/ALBUTEROL 0.5-3(2.5)MG/3ML NEB HHN PRN (13:00)
[2021-01-05 13:26] VITALS: BP 123/82
[2021-01-05 14:00] VITALS: BP 128/73
[2021-01-05 14:54] LABS: BG BASE EXCESS 2.5 mmol/L (-2.0-2.0); BG CARBOXYHEMOGLOBIN 0.8 % (0.5-1.5); BG DEOXYHEMOGLOBIN 4.1 % (0.0-5.0); BG FRACTION INSPIRED OXYGEN 36; BG HCO3 ACT 28.7 mmol/L (22.0-26.0); BG METHEMOGLOBIN 0.3 % (0.0-1.5); BG OXYGEN SATURATION 95.9 % (92.0-98.5); BG OXYHEMOGLOBIN 94.8 % (94.0-97.0); BG PCO2 51.3 mmHg (35.0-45.0); BG PH 7.366 (7.350-7.450); BG PO2 85.7 mmHg (75.0-100.0); BG SAMPLE SITE RIGHT RADIAL; BG TOTAL HEMOGLOBIN 13.1 g/dL (12.0-18.0); BG VENT MODE NASAL CANNULA
[2021-01-05] MEDS ORDERED: CLONIDINE 0.1MG TABLET PO PRN (15:15)
[2021-01-05] MEDS ORDERED: ONDANSETRON HCL 4MG/2ML INJ IV PRN (15:15)
[2021-01-05] MEDS ORDERED: NON FORMULARY PATIENT HOME MED XX SCH ×2 (15:15)
[2021-01-05] MEDS ORDERED: DOCUSATE SODIUM 100MG CAPSULE PO PRN (15:15)
[2021-01-05] MEDS ORDERED: ACETAMINOPHEN 325MG TABLET PO PRN (15:15)
[2021-01-05] MEDS ORDERED: LORAZEPAM 0.5MG TABLET PO PRN (15:15)
[2021-01-05] MEDS ORDERED: BACLOFEN 10MG TABLET PO PRN (15:15)
[2021-01-05 16:00] VITALS: BP 147/68
[2021-01-05] MEDS ORDERED: ENOXAPARIN 80MG/0.8ML SYR SUBCUT SCH (16:00)
[2021-01-05] MEDS: DILTIAZEM HCL 30MG TABLET PO SCH (17:42)
[2021-01-05] MEDS: ACETAMINOPHEN 325MG TABLET PO PRN (17:42)
[2021-01-05] MEDS: FUROSEMIDE 40MG TABLET PO SCH (17:42)
[2021-01-05] MEDS: FAMOTIDINE 20MG TABLET PO SCH (17:43)
[2021-01-05 18:00] VITALS: BP 127/79
[2021-01-05] MEDS: LORAZEPAM 1MG TABLET PO PRN (18:00)
[2021-01-05 19:31] LABS: BASOPHILS % 0.3 % (0.0-2.0); HEMATOCRIT. 39.6 % (36.0-48.0); HEMOGLOBIN. 12.9 g/dL (12.0-16.0); LYMPHOCYTES % 14.6 % (20.0-50.0); MEAN CORPUSCULAR HEMOGLOBIN 28.7 pg (28.0-32.0); MEAN CORPUSCULAR VOLUME 88.1 fL (81.0-99.0); MEAN PLATELET VOLUME 9.1 fl (7.4-10.4); MONOCYTES % 10.1 % (2.0-8.0); PLATELET 209 x1000/uL (130-400); RED CELL DISTRIBUTION WIDTH 18.2 % (11.6-14.6)
[2021-01-05 20:00] VITALS: BP 103/67
[2021-01-05 20:24] LABS: CHLORIDE 107 mEq/L (98-107)
[2021-01-05] MEDS: ATORVASTATIN CALCIUM 20MG TABLET PO SCH (20:36)
[2021-01-05] MEDS: IPRATROPIUM/ALBUTEROL 0.5-3(2.5)MG/3ML NEB HHN SCH (20:38)
[2021-01-05] MEDS: BUSPIRONE HCL 5MG TABLET PO SCH (21:05)
[2021-01-05 22:00] VITALS: BP 100/69
[2021-01-06] VITALS (13 sets, daily range): BP systolic 104–152; BP diastolic 65–94
[2021-01-06] MEDS: IPRATROPIUM/ALBUTEROL 0.5-3(2.5)MG/3ML NEB HHN SCH ×4 (01:39→20:23)
[2021-01-06] MEDS: DILTIAZEM HCL 30MG TABLET PO SCH ×4 (05:18→17:35)
[2021-01-06 06:08] LABS: BASOPHILS % 0.3 % (0.0-2.0); EOSINOPHILS % 1.4 % (0.0-5.0); HEMATOCRIT. 38.4 % (36.0-48.0); HEMOGLOBIN. 12.3 g/dL (12.0-16.0); MEAN CORPUSCULAR HEMOGLOBIN 28.7 pg (28.0-32.0); MEAN CORPUSCULAR VOLUME 89.4 fL (81.0-99.0); MEAN PLATELET VOLUME 9.6 fl (7.4-10.4); NEUTROPHILS % 72.3 % (40.0-76.0); PLATELET 195 x1000/uL (130-400); RED CELL DISTRIBUTION WIDTH 18.1 % (11.6-14.6)
[2021-01-06] MEDS: ASPIRIN 81MG EC TABLET PO SCH (10:03)
[2021-01-06] MEDS: FUROSEMIDE 40MG TABLET PO SCH (10:04)
[2021-01-06] MEDS: FAMOTIDINE 20MG TABLET PO SCH ×2 (10:05→17:34)
[2021-01-06] MEDS: AMBRISENTAN 10MG TABLET PO SCH (10:05)
[2021-01-06] MEDS: BUPROPION HCL 150MG TABLET XL 24HR PO SCH (10:06)
[2021-01-06] MEDS: ACETAMINOPHEN 325MG TABLET PO PRN (10:09)
[2021-01-06] MEDS ORDERED: FUROSEMIDE 40MG/4ML VIAL IVP SCH (10:30)
[2021-01-06] MEDS ORDERED: POTASSIUM CHLORIDE 20MEQ TABLET SR PO NR (10:30)
[2021-01-06] MEDS ORDERED: CEFTRIAXONE 1 G PREMIX 50 ML IV SCH (10:30)
[2021-01-06] MEDS ORDERED: CEFTRIAXONE 1,000 MG in DEXTROSE 5% WATER 50 ML IV SCH (12:00)
[2021-01-06 13:38] LABS: CLARITY URINE CLEAR (CLEAR); COLOR URINE YELLOW (YELLOW); KETONES URINE NEGATIVE (NEGATIVE); LEUKOCYTE ESTERASE URINE TRACE (NEGATIVE); NITRITE URINE NEGATIVE (NEGATIVE); OCCULT BLOOD URINE NEGATIVE (NEGATIVE); PH URINE 5.5 (4.5-8.0); PROTEIN URINE NEGATIVE (NEGATIVE); SPECIFIC GRAVITY URINE 1.012 (1.005-1.030); UROBILINOGEN URINE 0.2 E.U./dL (0.2-1.0)
[2021-01-06] MEDS: FUROSEMIDE 40MG/4ML VIAL IVP SCH (17:34)
[2021-01-06] MEDS: PREDNISONE 10MG TABLET PO SCH (17:34)
[2021-01-06] MEDS: POTASSIUM CHLORIDE 20MEQ TABLET SR PO SCH (17:34)
[2021-01-06] MEDS: ENOXAPARIN 100MG/ML SYR SUBCUT SCH (17:36)
[2021-01-06] MEDS: BUSPIRONE HCL 5MG TABLET PO SCH (20:00)
[2021-01-06] MEDS: ATORVASTATIN CALCIUM 20MG TABLET PO SCH (20:00)
[2021-01-06] MEDS: SILDENAFIL CITRATE 20MG TABLET PO SCH (21:11)
[2021-01-07] VITALS (11 sets, daily range): BP systolic 108–144; BP diastolic 61–79
[2021-01-07] MEDS: DILTIAZEM HCL 30MG TABLET PO SCH ×4 (00:20→18:11)
[2021-01-07] MEDS: LORAZEPAM 1MG TABLET PO PRN (00:24)
[2021-01-07] MEDS: IPRATROPIUM/ALBUTEROL 0.5-3(2.5)MG/3ML NEB HHN SCH ×4 (02:13→21:00)
[2021-01-07] MEDS: ENOXAPARIN 100MG/ML SYR SUBCUT SCH ×2 (05:27→18:12)
[2021-01-07] MEDS: SILDENAFIL CITRATE 20MG TABLET PO SCH ×3 (05:29→21:55)
[2021-01-07 09:13] LABS: BASOPHILS % 0.3 % (0.0-2.0); EOSINOPHILS % 0.2 % (0.0-5.0); HEMATOCRIT. 39.6 % (36.0-48.0); HEMOGLOBIN. 13.1 g/dL (12.0-16.0); LYMPHOCYTES % 24.5 % (20.0-50.0); MEAN CORPUSCULAR HEMOGLOBIN 29.1 pg (28.0-32.0); MEAN PLATELET VOLUME 9.6 fl (7.4-10.4); MONOCYTES % 8.5 % (2.0-8.0); NEUTROPHILS % 66.5 % (40.0-76.0); PLATELET 223 x1000/uL (130-400); RED CELL DISTRIBUTION WIDTH 18.2 % (11.6-14.6)
[2021-01-07 09:24] LABS: CHLORIDE 106 mEq/L (98-107)
[2021-01-07] MEDS: ASPIRIN 81MG EC TABLET PO SCH (09:44)
[2021-01-07] MEDS: FUROSEMIDE 40MG/4ML VIAL IVP SCH ×2 (09:44→18:11)
[2021-01-07] MEDS: FAMOTIDINE 20MG TABLET PO SCH ×2 (09:44→18:10)
[2021-01-07] MEDS: PREDNISONE 10MG TABLET PO SCH (09:44)
[2021-01-07] MEDS: POTASSIUM CHLORIDE 20MEQ TABLET SR PO SCH ×2 (09:44→18:10)
[2021-01-07] MEDS: BUPROPION HCL 150MG TABLET XL 24HR PO SCH (09:44)
[2021-01-07] MEDS: AMBRISENTAN 10MG TABLET PO SCH (09:46)
[2021-01-07] MEDS: BUSPIRONE HCL 5MG TABLET PO SCH (20:11)
[2021-01-07] MEDS: ATORVASTATIN CALCIUM 20MG TABLET PO SCH (20:11)
[2021-01-08] VITALS (11 sets, daily range): BP systolic 106–145; BP diastolic 69–96
[2021-01-08] MEDS: DILTIAZEM HCL 30MG TABLET PO SCH ×4 (00:57→17:36)
[2021-01-08] MEDS: ACETAMINOPHEN 325MG TABLET PO PRN ×2 (01:04→16:24)
[2021-01-08] MEDS: IPRATROPIUM/ALBUTEROL 0.5-3(2.5)MG/3ML NEB HHN SCH ×4 (01:49→20:20)
[2021-01-08] MEDS: SILDENAFIL CITRATE 20MG TABLET PO SCH ×3 (05:56→20:44)
[2021-01-08] MEDS: ENOXAPARIN 100MG/ML SYR SUBCUT SCH ×2 (05:58→17:38)
[2021-01-08 06:09] LABS: CHLORIDE 106 mEq/L (98-107)
[2021-01-08 06:28] LABS: HEMATOCRIT 39.9 % (36.0-48.0); HEMOGLOBIN 12.9 g/dL (12.0-16.0); MEAN CORPUSCULAR HEMOGLOBIN 28.3 pg (28.0-32.0); MEAN CORPUSCULAR VOLUME 87.7 fL (81.0-99.0); PLATELET 222 x1000/uL (130-400); RED BLOOD CELL COUNT 4.55 mill/uL (4.2-5.4); RED CELL DISTRIBUTION WIDTH 18.5 % (11.6-14.6)
[2021-01-08] MEDS: LORAZEPAM 1MG TABLET PO PRN ×2 (06:28→16:24)
[2021-01-08] MEDS: FUROSEMIDE 40MG/4ML VIAL IVP SCH ×2 (08:31→16:23)
[2021-01-08] MEDS: ASPIRIN 81MG EC TABLET PO SCH (08:32)
[2021-01-08] MEDS: FAMOTIDINE 20MG TABLET PO SCH ×2 (08:32→16:24)
[2021-01-08] MEDS: BUPROPION HCL 150MG TABLET XL 24HR PO SCH (08:32)
[2021-01-08] MEDS: PREDNISONE 10MG TABLET PO SCH (08:32)
[2021-01-08] MEDS: POTASSIUM CHLORIDE 20MEQ TABLET SR PO SCH ×2 (08:32→16:24)
[2021-01-08] MEDS: AMBRISENTAN 10MG TABLET PO SCH (08:34)
[2021-01-08] MEDS: ATORVASTATIN CALCIUM 20MG TABLET PO SCH (20:43)
[2021-01-08] MEDS: BUSPIRONE HCL 5MG TABLET PO SCH (20:44)
[2021-01-09] VITALS (12 sets, daily range): BP systolic 101–155; BP diastolic 60–97
[2021-01-09] MEDS: DILTIAZEM HCL 30MG TABLET PO SCH ×3 (00:58→12:13)
[2021-01-09] MEDS: IPRATROPIUM/ALBUTEROL 0.5-3(2.5)MG/3ML NEB HHN SCH ×4 (02:20→20:53)
[2021-01-09] MEDS: LORAZEPAM 1MG TABLET PO PRN ×3 (02:52→21:18)
[2021-01-09] MEDS: SILDENAFIL CITRATE 20MG TABLET PO SCH ×3 (06:31→21:20)
[2021-01-09] MEDS: ENOXAPARIN 100MG/ML SYR SUBCUT SCH ×2 (06:32→17:29)
[2021-01-09 06:53] LABS: CHLORIDE 107 mEq/L (98-107)
[2021-01-09 06:58] LABS: BASOPHILS % 0.2 % (0.0-2.0); EOSINOPHILS % 1.1 % (0.0-5.0); HEMATOCRIT. 37.2 % (36.0-48.0); HEMOGLOBIN. 11.9 g/dL (12.0-16.0); MEAN CORPUSCULAR HEMOGLOBIN 28.3 pg (28.0-32.0); MEAN PLATELET VOLUME 9.5 fl (7.4-10.4); MONOCYTES % 13.5 % (2.0-8.0); NEUTROPHILS % 66.2 % (40.0-76.0); PLATELET 208 x1000/uL (130-400); RED BLOOD CELL COUNT 4.22 mill/uL (4.2-5.4); RED CELL DISTRIBUTION WIDTH 18.3 % (11.6-14.6)
[2021-01-09] MEDS: FUROSEMIDE 40MG/4ML VIAL IVP SCH ×2 (08:24→17:27)
[2021-01-09] MEDS: PREDNISONE 10MG TABLET PO SCH (08:24)
[2021-01-09] MEDS: FAMOTIDINE 20MG TABLET PO SCH ×2 (08:24→17:30)
[2021-01-09] MEDS: BUPROPION HCL 150MG TABLET XL 24HR PO SCH (08:24)
[2021-01-09] MEDS: POTASSIUM CHLORIDE 20MEQ TABLET SR PO SCH ×2 (08:24→17:27)
[2021-01-09] MEDS: ASPIRIN 81MG EC TABLET PO SCH (08:24)
[2021-01-09] MEDS: AMBRISENTAN 10MG TABLET PO SCH (08:25)
[2021-01-09] MEDS ORDERED: POTASSIUM CHLORIDE 20MEQ TABLET SR PO NR (15:15)
[2021-01-09] MEDS: DIGOXIN 500MCG/2ML AMP IV SCH (17:28)
[2021-01-09] MEDS: ATORVASTATIN CALCIUM 20MG TABLET PO SCH (21:19)
[2021-01-09] MEDS: DILTIAZEM HCL 60MG TABLET PO SCH (21:20)
[2021-01-10] VITALS (9 sets, daily range): BP systolic 107–132; BP diastolic 66–93
[2021-01-10] MEDS: IPRATROPIUM/ALBUTEROL 0.5-3(2.5)MG/3ML NEB HHN SCH ×4 (01:01→20:30)
[2021-01-10] MEDS: SILDENAFIL CITRATE 20MG TABLET PO SCH ×3 (05:28→21:27)
[2021-01-10] MEDS: DILTIAZEM HCL 60MG TABLET PO SCH ×3 (05:28→21:28)
[2021-01-10] MEDS: ENOXAPARIN 100MG/ML SYR SUBCUT SCH ×2 (05:29→17:44)
[2021-01-10] MEDS: FUROSEMIDE 40MG/4ML VIAL IVP SCH ×2 (07:47→16:19)
[2021-01-10] MEDS: FAMOTIDINE 20MG TABLET PO SCH ×2 (08:03→16:20)
[2021-01-10] MEDS: AMBRISENTAN 10MG TABLET PO SCH (08:03)
[2021-01-10] MEDS: ASPIRIN 81MG EC TABLET PO SCH (08:04)
[2021-01-10] MEDS: BUPROPION HCL 150MG TABLET XL 24HR PO SCH (08:04)
[2021-01-10] MEDS: POTASSIUM CHLORIDE 20MEQ TABLET SR PO SCH ×2 (08:04→16:20)
[2021-01-10] MEDS: PREDNISONE 10MG TABLET PO SCH (08:04)
[2021-01-10 08:34] LABS: BASOPHILS % 0.3 % (0.0-2.0); EOSINOPHILS % 1.5 % (0.0-5.0); HEMATOCRIT. 39.7 % (36.0-48.0); HEMOGLOBIN. 13.1 g/dL (12.0-16.0); LYMPHOCYTES % 19.7 % (20.0-50.0); MEAN CORPUSCULAR HEMOGLOBIN 29.1 pg (28.0-32.0); MEAN PLATELET VOLUME 9.7 fl (7.4-10.4); MONOCYTES % 14.2 % (2.0-8.0); NEUTROPHILS % 64.3 % (40.0-76.0); PLATELET 210 x1000/uL (130-400); RED BLOOD CELL COUNT 4.51 mill/uL (4.2-5.4); RED CELL DISTRIBUTION WIDTH 17.9 % (11.6-14.6)
[2021-01-10] MEDS: LORAZEPAM 1MG TABLET PO PRN (12:50)
[2021-01-10] MEDS ORDERED: LIDOCAINE HCL/PF 1% 2ML VIAL ONE (16:39)
[2021-01-10 17:07] LABS: BG BASE EXCESS 6.9 mmol/L (-2.0-2.0); BG CARBOXYHEMOGLOBIN 0.3 % (0.5-1.5); BG DEOXYHEMOGLOBIN 6.3 % (0.0-5.0); BG FRACTION INSPIRED OXYGEN 36; BG HCO3 ACT 31.8 mmol/L (22.0-26.0); BG METHEMOGLOBIN 0.4 % (0.0-1.5); BG OXYGEN SATURATION 93.7 % (92.0-98.5); BG PCO2 45.9 mmHg (35.0-45.0); BG PH 7.458 (7.350-7.450); BG PO2 67.6 mmHg (75.0-100.0); BG SAMPLE SITE RIGHT RADIAL; BG TOTAL HEMOGLOBIN 13.6 g/dL (12.0-18.0); BG VENT MODE NASAL CANNULA
[2021-01-10] MEDS: DIGOXIN 500MCG/2ML AMP IV SCH (18:32)
[2021-01-10] MEDS ORDERED: LORAZEPAM 1MG TABLET PO PRN (19:00)
[2021-01-10] MEDS: ATORVASTATIN CALCIUM 20MG TABLET PO SCH (21:27)
[2021-01-11] MEDS ORDERED: LORAZEPAM 0.5MG TABLET PO ONE
== END 2021-01-10 23:46 | disposition short-term general hospital (02) | DRG 291 ==
LOC: 5EST 12:20
PROVIDERS: ADMIT Internal Medicine; ATTEND Internal Medicine
DX: I13.0 Hypertensive heart and chronic kidney disease with heart failure and stage 1 through stage 4 chronic kidney disease, or unspecified chronic kidney disease (principal); J96.22 Acute and chronic respiratory failure with hypercapnia; I50.33 Acute on chronic diastolic (congestive) heart failure; J96.21 Acute and chronic respiratory failure with hypoxia; J44.1 Chronic obstructive pulmonary disease with (acute) exacerbation; I48.19 Other persistent atrial fibrillation; I82.512 Chronic embolism and thrombosis of left femoral vein; E87.2 Acidosis; D68.59 Other primary thrombophilia; N39.0 Urinary tract infection, site not specified; I42.9 Cardiomyopathy, unspecified; E78.5 Hyperlipidemia, unspecified; I27.29 Other secondary pulmonary hypertension; M48.061 Spinal stenosis, lumbar region without neurogenic claudication; R29.6 Repeated falls; E66.9 Obesity, unspecified; I25.10 Atherosclerotic heart disease of native coronary artery without angina pectoris; M47.816 Spondylosis without myelopathy or radiculopathy, lumbar region; N18.9 Chronic kidney disease, unspecified; E87.6 Hypokalemia; I49.3 Ventricular premature depolarization; Z99.81 Dependence on supplemental oxygen; Z79.899 Other long term (current) drug therapy; Z79.82 Long term (current) use of aspirin; Z79.51 Long term (current) use of inhaled steroids; Z88.8 Allergy status to other drugs, medicaments and biological substances; Z88.5 Allergy status to narcotic agent; Z79.01 Long term (current) use of anticoagulants; Z91.81 History of falling; Z95.828 Presence of other vascular implants and grafts; I25.2 Old myocardial infarction; Z95.5 Presence of coronary angioplasty implant and graft; Z68.30 Body mass index [BMI] 30.0-30.9, adult
CPT/HCPCS: 36415; 36600; 71045; 80048; 80053; 81003; 82375; 82805; 83036; 83735; 83880; 84145; 84484; 85025; 85027; 85379; 93005; 93306; 93970; 94640; 96374; 97162; 99291; J0696; J1160; J1650; J1940; J3490; J7060; J7512

== ENCOUNTER 2021-01-05 11:23 | Emergency (ER) | payer MEDICARE, MEDICAID ==
[~2021-01-05] VITALS: Ht 165.1 cm; Wt 70.0 kg
[2021-01-05] MEDS ORDERED: FUROSEMIDE 40MG/4ML VIAL IV ONE (12:00)
[2021-01-05 12:05] VITALS: BP 111/71
[2021-01-05 12:17] LABS: BASOPHILS % 0.3 % (0.0-2.0); EOSINOPHILS % 1.3 % (0.0-5.0); HEMOGLOBIN. 13.3 g/dL (12.0-16.0); LYMPHOCYTES % 21.2 % (20.0-50.0); MEAN CORPUSCULAR HEMOGLOBIN 29.1 pg (28.0-32.0); MEAN CORPUSCULAR VOLUME 87.9 fL (81.0-99.0); MEAN PLATELET VOLUME 8.6 fl (7.4-10.4); MONOCYTES % 10.1 % (2.0-8.0); NEUTROPHILS % 67.1 % (40.0-76.0); PLATELET 214 x1000/uL (130-400); RED BLOOD CELL COUNT 4.56 mill/uL (4.2-5.4); RED CELL DISTRIBUTION WIDTH 18.4 % (11.6-14.6)
[2021-01-05 12:23] LABS: CHLORIDE 108 mEq/L (98-107)
[2021-01-05 12:27] LABS: PROTHROMBIN TIME 11.2 sec (9.6-11.0)
== END 2021-01-05 14:00 | disposition admitted as inpatient to this hospital (09) ==
LOC: CANRESERV 13:09 → ENRESERV 13:09 → ER 13:47 → CANBEDREQ 16:22
DX: I11.0 Hypertensive heart disease with heart failure (principal); I50.9 Heart failure, unspecified; I25.2 Old myocardial infarction; J44.9 Chronic obstructive pulmonary disease, unspecified; Z87.448 Personal history of other diseases of urinary system
CPT/HCPCS: 36415; 71045; 80053; 83735; 83880; 84484; 85025; 85610; 93005; 96374; 99291; J1940

== ENCOUNTER 2022-04-05 09:17 | Inpatient (IN) | payer MEDICARE, MEDICAID ==
[~2022-04-05] VITALS: Ht 177.8 cm; Wt 74.2 kg
[~2022-04-05 09:17] MED LIST changes: -AMBR5TAB3 PO; -ASPI-1406 PO; +HYDR25TA PO; -HYDR30CR RC; +POTA-194 PO; -POTA20TA12 PO; -PRED10TA MT; -RIOC2.5T MT; -RIOC2.5T PO; -VIAG25 PO
[2022-04-05] MEDS ORDERED: METOCLOPRAMIDE HCL 10MG/2ML VIAL IV ONE (09:30)
[2022-04-05] MEDS ORDERED: KETOROLAC 30MG/ML VIAL IV STA (09:30)
[2022-04-05 10:15] LABS: BASOPHILS % 0.2 % (0.0-2.0); EOSINOPHILS % 0.2 % (0.0-5.0); HEMATOCRIT. 32.1 % (36.0-48.0); HEMOGLOBIN. 9.9 g/dL (12.0-16.0); LYMPHOCYTES % 9.7 % (20.0-50.0); MEAN CORPUSCULAR HEMOGLOBIN 23.3 pg (28.0-32.0); MEAN CORPUSCULAR VOLUME 75.5 fL (81.0-99.0); MEAN PLATELET VOLUME 8.9 fl (7.4-10.4); MONOCYTES % 11.5 % (2.0-8.0); NEUTROPHILS % 78.4 % (40.0-76.0); PLATELET 214 x1000/uL (130-400); RED BLOOD CELL COUNT 4.24 mill/uL (4.2-5.4); RED CELL DISTRIBUTION WIDTH 19.9 % (11.6-14.6)
[2022-04-05 10:21] LABS: CHLORIDE 102 mEq/L (98-107)
[2022-04-05] MEDS ORDERED: POTASSIUM CHLORIDE 20MEQ TABLET SR PO ONE (13:45)
[2022-04-05 14:00] VITALS: BP 152/85
[2022-04-05] MEDS ORDERED: MAGNESIUM/ALUMINUM HYDROXIDE/SIMETHICONE 30ML UDC PO PRN (15:00)
[2022-04-05] MEDS ORDERED: ACETAMINOPHEN 325MG TABLET PO PRN ×2 (15:00)
[2022-04-05] MEDS ORDERED: ONDANSETRON HCL 4MG/2ML INJ IV PRN (15:00)
[2022-04-05] MEDS ORDERED: TRAMADOL 50MG TABLET PO PRN (15:00)
[2022-04-05] MEDS ORDERED: GUAIFENESIN 200MG/10ML SUGAR FREE UDC PO PRN (15:00)
[2022-04-05] MEDS ORDERED: NITROGLYCERIN 0.4MG TABLET SL SL PRN (15:00)
[2022-04-05] MEDS ORDERED: NALOXONE HCL 0.4MG/ML VIAL IV PRN (15:00)
[2022-04-05] MEDS ORDERED: NA PHOS,M-B/NA PHOS,DI-BA ENEMA 118ML PR PRN (15:00)
[2022-04-05] MEDS ORDERED: DOCUSATE SODIUM 100MG CAPSULE PO PRN (15:00)
[2022-04-05] MEDS ORDERED: CLONIDINE 0.1MG TABLET PO PRN (15:00)
[2022-04-05] MEDS ORDERED: IPRATROPIUM/ALBUTEROL 0.5-3(2.5)MG/3ML NEB NEB PRN (15:00)
[2022-04-05 16:00] VITALS: BP 141/81
[2022-04-05] MEDS ORDERED: KCL 20MEQ/100ML PREMIX 100 ML IV NR (16:00)
[2022-04-05] MEDS: LOSARTAN POTASSIUM 25 MG TABLET PO SCH (16:14)
[2022-04-05] MEDS: FUROSEMIDE 40MG/4ML VIAL IVP SCH (17:56)
[2022-04-05] MEDS: SPIRONOLACTONE 25MG TABLET PO SCH (17:57)
[2022-04-05] MEDS: PREDNISONE 10MG TABLET PO SCH (17:57)
[2022-04-05 19:08] LABS: T4 FREE 1.03 ng/dL (0.76-1.46)
[2022-04-05 19:24] LABS: FOLIC ACID (FOLATE) SERUM >20 ng/mL ng/mL (>5.38); VITAMIN B12 SERUM 557 pg/mL (211-911)
[2022-04-05 20:00] VITALS: BP 149/72
[2022-04-05] MEDS: ATORVASTATIN CALCIUM 40MG TABLET PO SCH (20:57)
[2022-04-05] MEDS: FAMOTIDINE 20MG TABLET PO SCH (20:57)
[2022-04-05] MEDS ORDERED: ZOLPIDEM TARTRATE 5MG TABLET PO PRN (21:00)
[2022-04-05] MEDS: IPRATROPIUM/ALBUTEROL 0.5-3(2.5)MG/3ML NEB HHN SCH (21:48)
[2022-04-06] VITALS (9 sets, daily range): BP systolic 117–172; BP diastolic 65–121
[2022-04-06 01:00] LABS: CREATINE KINASE MB FRACTION 4.6 ng/mL (0.5-3.6)
[2022-04-06] MEDS: IPRATROPIUM/ALBUTEROL 0.5-3(2.5)MG/3ML NEB HHN SCH ×3 (03:35→13:08)
[2022-04-06 06:28] LABS: BASOPHILS % 0.1 % (0.0-2.0); EOSINOPHILS % 0.1 % (0.0-5.0); HEMATOCRIT. 33.8 % (36.0-48.0); HEMOGLOBIN. 10.4 g/dL (12.0-16.0); LYMPHOCYTES % 9.5 % (20.0-50.0); MEAN CORPUSCULAR HEMOGLOBIN 23.5 pg (28.0-32.0); MEAN CORPUSCULAR VOLUME 76.6 fL (81.0-99.0); MEAN PLATELET VOLUME 8.8 fl (7.4-10.4); MONOCYTES % 10.8 % (2.0-8.0); NEUTROPHILS % 79.5 % (40.0-76.0); PLATELET 231 x1000/uL (130-400); RED BLOOD CELL COUNT 4.42 mill/uL (4.2-5.4); RED CELL DISTRIBUTION WIDTH 20.1 % (11.6-14.6)
[2022-04-06] MEDS: FUROSEMIDE 40MG/4ML VIAL IVP SCH ×2 (06:33→18:40)
[2022-04-06] MEDS: SPIRONOLACTONE 25MG TABLET PO SCH ×2 (06:34→18:41)
[2022-04-06 06:43] LABS: CHLORIDE 97 mEq/L (98-107)
[2022-04-06 07:09] LABS: HDL CHOLESTEROL 100 mg/dL (40-59); LDL CHOLESTEROL 85 mg/dL (5-100); PHOSPHORUS 2.7 mg/dL (2.5-4.9)
[2022-04-06] MEDS ORDERED: KCL 20MEQ/100ML PREMIX 100 ML IV SCH (09:00)
[2022-04-06] MEDS ORDERED: POTASSIUM CHLORIDE 20MEQ TABLET SR PO NR (09:30)
[2022-04-06] MEDS ORDERED: DILTIAZEM HCL 5MG/ML 5ML VIAL IV SCH (10:15)
[2022-04-06] MEDS ORDERED: DILTIAZEM HCL 125 MG in DEXT 5% WATER 100 ML IV SCH (10:15)
[2022-04-06] MEDS: PREDNISONE 10MG TABLET PO SCH ×2 (10:28→18:41)
[2022-04-06] MEDS: LOSARTAN POTASSIUM 25 MG TABLET PO SCH (10:28)
[2022-04-06] MEDS ORDERED: DILTIAZEM 125MG/125ML PMX 125 ML IV SCH (12:00)
[2022-04-06] MEDS: ENOXAPARIN 30MG/0.3ML SYR SUBCUT SCH (12:00)
[2022-04-06] MEDS ORDERED: NON FORMULARY PATIENT HOME MED XX SCH (13:00)
[2022-04-06] MEDS ORDERED: POTASSIUM CHLORIDE 20MEQ TABLET SR PO SCH (14:00)
[2022-04-06] MEDS: IPRATROPIUM BROMIDE (0.02%) 0.5MG/2.5ML NEB HHN SCH ×2 (15:34→20:28)
[2022-04-06] MEDS: IRON SUCROSE COMPLEX 100 MG/5 ML ML IV SCH (16:16)
[2022-04-06] MEDS ORDERED: SODIUM CHLORIDE 0.9% 1000ML BAG (SEPSIS BOLUS) IV NR (18:24)
[2022-04-06] MEDS: ATORVASTATIN CALCIUM 40MG TABLET PO SCH (21:48)
[2022-04-06] MEDS: FAMOTIDINE 20MG TABLET PO SCH (21:48)
[2022-04-06] MEDS: AMBRISENTAN 10MG TABLET PO SCH (21:48)
[2022-04-07] VITALS (11 sets, daily range): BP systolic 100–167; BP diastolic 61–99
[2022-04-07] MEDS: IPRATROPIUM BROMIDE (0.02%) 0.5MG/2.5ML NEB HHN SCH ×4 (02:15→20:19)
[2022-04-07] MEDS: FUROSEMIDE 40MG/4ML VIAL IVP SCH (05:44)
[2022-04-07] MEDS: SPIRONOLACTONE 25MG TABLET PO SCH (05:44)
[2022-04-07 06:32] LABS: BASOPHILS % 0.5 % (0.0-2.0); EOSINOPHILS % 0.5 % (0.0-5.0); HEMATOCRIT. 37.3 % (36.0-48.0); LYMPHOCYTES % 13.4 % (20.0-50.0); MEAN CORPUSCULAR HEMOGLOBIN 22.7 pg (28.0-32.0); MEAN CORPUSCULAR VOLUME 76.5 fL (81.0-99.0); MEAN PLATELET VOLUME 8.9 fl (7.4-10.4); NEUTROPHILS % 74.6 % (40.0-76.0); PLATELET 230 x1000/uL (130-400); RED BLOOD CELL COUNT 4.87 mill/uL (4.2-5.4); RED CELL DISTRIBUTION WIDTH 20.3 % (11.6-14.6)
[2022-04-07 07:07] LABS: *AMPHETAMINES SCREEN URINE NEGATIVE (NEGATIVE); *BARBITURATES SCREEN URINE NEGATIVE (NEGATIVE); *BENZODIAZEPINES SCREEN URINE NEGATIVE (NEGATIVE); *COCAINE SCREEN URINE NEGATIVE (NEGATIVE); CANNABINOID URINE SCREEN NEGATIVE (NEGATIVE); METHADONE URINE SCREEN NEGATIVE (NEGATIVE); OPIATES URINE SCREEN NEGATIVE (NEGATIVE); PHENCYCLIDINE URINE SCREEN NEGATIVE (NEGATIVE)
[2022-04-07] MEDS ORDERED: FUROSEMIDE 40MG TABLET PO SCH (09:00)
[2022-04-07] MEDS: PREDNISONE 10MG TABLET PO SCH ×2 (09:06→17:34)
[2022-04-07] MEDS: LOSARTAN POTASSIUM 25 MG TABLET PO SCH (09:06)
[2022-04-07] MEDS: IRON SUCROSE COMPLEX 100 MG/5 ML ML IV SCH (09:07)
[2022-04-07] MEDS: ENOXAPARIN 30MG/0.3ML SYR SUBCUT SCH (12:00)
[2022-04-07] MEDS: SODIUM CHLORIDE 0.45% 1,000 ML IV SCH (15:23)
[2022-04-07] MEDS: DILTIAZEM HCL 60MG TABLET PO SCH ×2 (16:21→20:56)
[2022-04-07] MEDS: FAMOTIDINE 20MG TABLET PO SCH (20:55)
[2022-04-07] MEDS: ATORVASTATIN CALCIUM 40MG TABLET PO SCH (20:55)
[2022-04-07] MEDS: AMBRISENTAN 10MG TABLET PO SCH (20:55)
[2022-04-08] VITALS (11 sets, daily range): BP systolic 116–152; BP diastolic 67–94
[2022-04-08] MEDS: SODIUM CHLORIDE 0.45% 1,000 ML IV SCH ×2 (02:08→04:15)
[2022-04-08 06:12] LABS: CHLORIDE 98 mEq/L (98-107)
[2022-04-08 06:20] LABS: HEMATOCRIT 33.3 % (36.0-48.0); HEMOGLOBIN 10.1 g/dL (12.0-16.0); MEAN CORPUSCULAR HEMOGLOBIN 23.2 pg (28.0-32.0); MEAN CORPUSCULAR VOLUME 76.4 fL (81.0-99.0); PLATELET 205 x1000/uL (130-400); RED BLOOD CELL COUNT 4.36 mill/uL (4.2-5.4); RED CELL DISTRIBUTION WIDTH 19.5 % (11.6-14.6)
[2022-04-08] MEDS: DILTIAZEM HCL 60MG TABLET PO SCH ×3 (06:35→21:53)
[2022-04-08] MEDS ORDERED: POTASSIUM CHLORIDE 20MEQ TABLET SR PO SCH (07:15)
[2022-04-08] MEDS: IPRATROPIUM BROMIDE (0.02%) 0.5MG/2.5ML NEB HHN SCH ×4 (07:45→20:07)
[2022-04-08] MEDS: PREDNISONE 10MG TABLET PO SCH ×2 (08:54→18:22)
[2022-04-08] MEDS: IRON SUCROSE COMPLEX 100 MG/5 ML ML IV SCH (08:54)
[2022-04-08] MEDS: LOSARTAN POTASSIUM 25 MG TABLET PO SCH (08:54)
[2022-04-08] MEDS: APIXABAN 2.5 MG TABLET PO SCH (13:15)
[2022-04-08] MEDS: THROAT LOZENGES-BENZOCAINE/MENTH/CETYLPYRD CL LOZENGES MM SCH ×3 (13:16→21:54)
[2022-04-08] MEDS: FAMOTIDINE 20MG TABLET PO SCH (21:53)
[2022-04-08] MEDS: ATORVASTATIN CALCIUM 40MG TABLET PO SCH (21:53)
[2022-04-08] MEDS: AMBRISENTAN 10MG TABLET PO SCH (21:54)
[2022-04-09] VITALS (10 sets, daily range): BP systolic 119–153; BP diastolic 62–101
[2022-04-09] MEDS: IPRATROPIUM BROMIDE (0.02%) 0.5MG/2.5ML NEB HHN SCH ×2 (02:06→07:56)
[2022-04-09] MEDS: THROAT LOZENGES-BENZOCAINE/MENTH/CETYLPYRD CL LOZENGES MM SCH ×5 (02:30→17:36)
[2022-04-09] MEDS: SODIUM CHLORIDE 0.45% 1,000 ML IV SCH (04:15)
[2022-04-09] MEDS: DILTIAZEM HCL 60MG TABLET PO SCH ×3 (06:15→17:38)
[2022-04-09 07:12] LABS: EOSINOPHILS % 0.1 % (0.0-5.0); HEMATOCRIT. 36.4 % (36.0-48.0); HEMOGLOBIN. 10.9 g/dL (12.0-16.0); LYMPHOCYTES % 12.4 % (20.0-50.0); MEAN CORPUSCULAR HEMOGLOBIN 23.3 pg (28.0-32.0); MEAN CORPUSCULAR VOLUME 77.6 fL (81.0-99.0); MEAN PLATELET VOLUME 8.9 fl (7.4-10.4); MONOCYTES % 8.6 % (2.0-8.0); NEUTROPHILS % 78.9 % (40.0-76.0); PLATELET 239 x1000/uL (130-400); RED BLOOD CELL COUNT 4.69 mill/uL (4.2-5.4); RED CELL DISTRIBUTION WIDTH 20.5 % (11.6-14.6)
[2022-04-09] MEDS: APIXABAN 2.5 MG TABLET PO SCH (09:15)
[2022-04-09] MEDS: LOSARTAN POTASSIUM 25 MG TABLET PO SCH (09:15)
[2022-04-09] MEDS: PREDNISONE 10MG TABLET PO SCH ×2 (09:15→17:38)
[2022-04-09] MEDS: ATORVASTATIN CALCIUM 40MG TABLET PO SCH (20:13)
[2022-04-09] MEDS: FAMOTIDINE 20MG TABLET PO SCH (20:13)
[2022-04-09] MEDS: AMBRISENTAN 10MG TABLET PO SCH (21:00)
== END 2022-04-09 21:20 | disposition home health service (06) | DRG 291 ==
LOC: ER 09:17 → 8WST 12:43 → EDBEDREQTM 12:48 → EDBEDREQ 12:48 → ENRESERV 13:07 → CANRESERV 13:07 → ENRESERV 13:26 → 5EST 04-06 11:50
PROVIDERS: ADMIT Internal Medicine; ATTEND Internal Medicine
DX: I11.0 Hypertensive heart disease with heart failure (principal); I50.33 Acute on chronic diastolic (congestive) heart failure; J96.21 Acute and chronic respiratory failure with hypoxia; N17.9 Acute kidney failure, unspecified; E87.6 Hypokalemia; E78.5 Hyperlipidemia, unspecified; I25.10 Atherosclerotic heart disease of native coronary artery without angina pectoris; I25.2 Old myocardial infarction; M48.061 Spinal stenosis, lumbar region without neurogenic claudication; I27.20 Pulmonary hypertension, unspecified; D50.9 Iron deficiency anemia, unspecified; J44.9 Chronic obstructive pulmonary disease, unspecified; N28.9 Disorder of kidney and ureter, unspecified; I48.0 Paroxysmal atrial fibrillation; R26.9 Unspecified abnormalities of gait and mobility; E16.2 Hypoglycemia, unspecified; E86.0 Dehydration; K59.09 Other constipation; I08.1 Rheumatic disorders of both mitral and tricuspid valves; Z79.899 Other long term (current) drug therapy; Z85.038 Personal history of other malignant neoplasm of large intestine; Z90.49 Acquired absence of other specified parts of digestive tract; Z99.81 Dependence on supplemental oxygen; Z88.8 Allergy status to other drugs, medicaments and biological substances; Z86.718 Personal history of other venous thrombosis and embolism; Z66 Do not resuscitate; Z86.73 Personal history of transient ischemic attack (TIA), and cerebral infarction without residual deficits; Z79.01 Long term (current) use of anticoagulants; Z95.828 Presence of other vascular implants and grafts
CPT/HCPCS: 36415; 70551; 71045; 72141; 72148; 80048; 80053; 80061; 80305; 82550; 82553; 82607; 82746; 83036; 83540; 83550; 83605; 83735; 83880; 84100; 84439; 84443; 84484; 85025; 85027; 93005; 93306; 94640; 94664; 99285; J1650; J1885; J1940; J2765; J3480; J3490; J7512

== ENCOUNTER 2022-07-12 11:22 | Inpatient (IN) | payer MEDICARE, MEDICAID ==
[~2022-07-12] VITALS: Ht 167.6 cm; Wt 73.1 kg
[~2022-07-12 11:22] MED LIST changes: -AMLO5TAB4 PO
[2022-07-12] MEDS ORDERED: MORPHINE SULFATE 4 MG/ML CPJ (NOT FOR IM USE) IV STA (11:59)
[2022-07-12] MEDS ORDERED: ONDANSETRON HCL 4MG/2ML INJ IV STA (11:59)
[2022-07-12] MEDS ORDERED: SODIUM CHLORIDE 0.9% 1,000 ML IV ONE (12:00)
[2022-07-12] MEDS ORDERED: SODIUM CHLORIDE 0.9% 1000ML BAG (SEPSIS BOLUS) IV ONE (12:15)
[2022-07-12 13:20] LABS: BASOPHILS % 0.4 % (0.0-2.0); EOSINOPHILS % 0.4 % (0.0-5.0); HEMATOCRIT. 35.7 % (36.0-48.0); HEMOGLOBIN. 11.4 g/dL (12.0-16.0); LYMPHOCYTES % 11.9 % (20.0-50.0); MEAN CORPUSCULAR HEMOGLOBIN 26.5 pg (28.0-32.0); MEAN CORPUSCULAR VOLUME 83.1 fL (81.0-99.0); MEAN PLATELET VOLUME 9.1 fl (7.4-10.4); NEUTROPHILS % 82.3 % (40.0-76.0); PLATELET 194 x1000/uL (130-400); RED CELL DISTRIBUTION WIDTH 20.8 % (11.6-14.6)
[2022-07-12 13:57] LABS: PARTIAL THROMBOPLASTIN TIME 25.8 sec (23.4-31.0)
[2022-07-12 14:56] LABS: VITAMIN B12 SERUM 463 pg/mL (211-911)
[2022-07-12] MEDS ORDERED: ONDANSETRON HCL 4MG/2ML INJ IV NR (15:00)
[2022-07-12] MEDS ORDERED: CEFTRIAXONE 1 G PREMIX 50 ML IV ONE (15:15)
[2022-07-12] MEDS ORDERED: AZITHROMYCIN 500MG/250ML 250 ML IV ONE (15:15)
[2022-07-12 15:35] LABS: FOLIC ACID (FOLATE) SERUM > 20.00 ng/mL (>5.38)
[2022-07-12 15:49] LABS: CHLORIDE 105 mEq/L (98-107)
[2022-07-12] MEDS: PANTOPRAZOLE SODIUM 40 MG/VIAL IV SCH (17:00)
[2022-07-12] MEDS ORDERED: DOCUSATE SODIUM 100MG CAPSULE PO PRN (19:00)
[2022-07-12] MEDS ORDERED: TRAMADOL 50MG TABLET PO PRN (19:00)
[2022-07-12] MEDS ORDERED: GUAIFENESIN 200MG/10ML SUGAR FREE UDC PO PRN (19:00)
[2022-07-12] MEDS ORDERED: ONDANSETRON HCL 4MG/2ML INJ IV PRN (19:00)
[2022-07-12] MEDS ORDERED: MAGNESIUM/ALUMINUM HYDROXIDE/SIMETHICONE 30ML UDC PO PRN (19:00)
[2022-07-12] MEDS ORDERED: NALOXONE HCL 0.4MG/ML VIAL IV PRN (19:45)
[2022-07-12 22:44] LABS: BASOPHILS % 0.2 % (0.0-2.0); EOSINOPHILS % 0.1 % (0.0-5.0); HEMATOCRIT. 32.3 % (36.0-48.0); HEMOGLOBIN. 10.2 g/dL (12.0-16.0); LYMPHOCYTES % 8.9 % (20.0-50.0); MEAN CORPUSCULAR HEMOGLOBIN 26.4 pg (28.0-32.0); MEAN PLATELET VOLUME 9.6 fl (7.4-10.4); MONOCYTES % 5.5 % (2.0-8.0); NEUTROPHILS % 85.3 % (40.0-76.0); PLATELET 180 x1000/uL (130-400); RED BLOOD CELL COUNT 3.85 mill/uL (4.2-5.4); RED CELL DISTRIBUTION WIDTH 20.2 % (11.6-14.6)
[2022-07-13 01:30] VITALS: BP 138/60
[2022-07-13] MEDS ORDERED: METO5TAB7 PO (03:38)
[2022-07-13] MEDS ORDERED: DIGO125T80 PO (03:38)
[2022-07-13] MEDS ORDERED: PRED10TA23 PO (03:38)
[2022-07-13] MEDS ORDERED: APIX2.5T PO (03:38)
[2022-07-13 04:00] VITALS: BP 119/46
[2022-07-13] MEDS ORDERED: CRES10 PO (04:16)
[2022-07-13] MEDS ORDERED: DILT240T12 PO (04:16)
[2022-07-13] MEDS ORDERED: SILD20TA PO (04:16)
[2022-07-13] MEDS ORDERED: ASPI-1497 PO (04:16)
[2022-07-13] MEDS ORDERED: FOLI0.8T23 MT (04:16)
[2022-07-13] MEDS ORDERED: ALBU18HF2 IH (04:16)
[2022-07-13 08:00] VITALS: BP 125/56
[2022-07-13] MEDS: PANTOPRAZOLE SODIUM 40 MG/VIAL IV SCH ×2 (09:07→17:00)
[2022-07-13 09:17] LABS: CLARITY URINE CLEAR (CLEAR); COLOR URINE YELLOW (YELLOW); KETONES URINE NEGATIVE (NEGATIVE); LEUKOCYTE ESTERASE URINE 2+ (NEGATIVE); NITRITE URINE NEGATIVE (NEGATIVE); OCCULT BLOOD URINE NEGATIVE (NEGATIVE); PH URINE 5.5 (4.5-8.0); PROTEIN URINE NEGATIVE (NEGATIVE); SPECIFIC GRAVITY URINE 1.016 (1.005-1.030); UROBILINOGEN URINE 0.2 E.U./dL (0.2-1.0)
[2022-07-13 10:09] LABS: BASOPHILS % 0.2 % (0.0-2.0); EOSINOPHILS % 1.5 % (0.0-5.0); HEMATOCRIT. 27.1 % (36.0-48.0); HEMOGLOBIN. 8.5 g/dL (12.0-16.0); LYMPHOCYTES % 12.9 % (20.0-50.0); MEAN CORPUSCULAR HEMOGLOBIN 26.4 pg (28.0-32.0); MEAN CORPUSCULAR VOLUME 83.9 fL (81.0-99.0); MEAN PLATELET VOLUME 9.2 fl (7.4-10.4); MONOCYTES % 10.4 % (2.0-8.0); PLATELET 159 x1000/uL (130-400); RED BLOOD CELL COUNT 3.23 mill/uL (4.2-5.4); RED CELL DISTRIBUTION WIDTH 20.2 % (11.6-14.6)
[2022-07-13 10:37] LABS: CHLORIDE 107 mEq/L (98-107)
[2022-07-13 10:59] LABS: HDL CHOLESTEROL 71 mg/dL (40-59); LDL CHOLESTEROL 49 mg/dL (5-100)
[2022-07-13 12:00] VITALS: BP 131/52
[2022-07-13] MEDS: AMLODIPINE 2.5MG TABLET PO SCH (12:31)
[2022-07-13] MEDS: POTASSIUM CHLORIDE 20MEQ TABLET SR PO SCH (12:31)
[2022-07-13 20:00] VITALS: BP 131/42
[2022-07-14] VITALS (11 sets, daily range): BP systolic 115–156; BP diastolic 42–74
[2022-07-14 07:38] LABS: BASOPHILS % 0.4 % (0.0-2.0); EOSINOPHILS % 2.1 % (0.0-5.0); HEMATOCRIT. 29.6 % (36.0-48.0); HEMOGLOBIN. 9.5 g/dL (12.0-16.0); LYMPHOCYTES % 16.8 % (20.0-50.0); MEAN CORPUSCULAR HEMOGLOBIN 27.2 pg (28.0-32.0); MEAN CORPUSCULAR VOLUME 84.6 fL (81.0-99.0); MEAN PLATELET VOLUME 9.2 fl (7.4-10.4); MONOCYTES % 9.6 % (2.0-8.0); NEUTROPHILS % 71.1 % (40.0-76.0); PLATELET 160 x1000/uL (130-400)
[2022-07-14] MEDS: AMLODIPINE 2.5MG TABLET PO SCH (09:29)
[2022-07-14] MEDS: PANTOPRAZOLE SODIUM 40 MG/VIAL IV SCH ×2 (09:29→17:52)
[2022-07-14] MEDS: POTASSIUM CHLORIDE 20MEQ TABLET SR PO SCH (09:29)
[2022-07-14] MEDS: DEXT 5%/0.45% NACL 1000ML 1,000 ML IV SCH (14:17)
[2022-07-15] VITALS: BP 115/52
[2022-07-15] MEDS: DEXT 5%/0.45% NACL 1000ML 1,000 ML IV SCH ×2 (02:57→17:57)
[2022-07-15 04:00] VITALS: BP 124/57
[2022-07-15 06:38] LABS: BASOPHILS % 0.3 % (0.0-2.0); EOSINOPHILS % 2.1 % (0.0-5.0); HEMATOCRIT. 24.2 % (36.0-48.0); HEMOGLOBIN. 7.8 g/dL (12.0-16.0); LYMPHOCYTES % 14.2 % (20.0-50.0); MEAN PLATELET VOLUME 9.2 fl (7.4-10.4); MONOCYTES % 10.9 % (2.0-8.0); NEUTROPHILS % 72.5 % (40.0-76.0); PLATELET 148 x1000/uL (130-400); RED BLOOD CELL COUNT 2.88 mill/uL (4.2-5.4); RED CELL DISTRIBUTION WIDTH 18.3 % (11.6-14.6)
[2022-07-15 08:00] VITALS: BP 160/71
[2022-07-15] MEDS: PANTOPRAZOLE SODIUM 40 MG/VIAL IV SCH ×2 (09:24→17:57)
[2022-07-15] MEDS: POTASSIUM CHLORIDE 20MEQ TABLET SR PO SCH (09:25)
[2022-07-15] MEDS: AMLODIPINE 2.5MG TABLET PO SCH (09:25)
[2022-07-15] MEDS: ACETAMINOPHEN 325MG TABLET PO PRN (09:27)
[2022-07-15 12:00] VITALS: BP 141/61
[2022-07-15 16:00] VITALS: BP 145/52
[2022-07-15 16:03] LABS: CHLORIDE 108 mEq/L (98-107)
[2022-07-15 16:03] LABS: CHLORIDE 110 mEq/L (98-107)
[2022-07-15 20:00] VITALS: BP 155/76
[2022-07-16] VITALS (10 sets, daily range): BP systolic 112–149; BP diastolic 50–77
[2022-07-16] MEDS: DEXT 5%/0.45% NACL 1000ML 1,000 ML IV SCH (05:44)
[2022-07-16 08:03] LABS: BASOPHILS % 0.4 % (0.0-2.0); EOSINOPHILS % 1.8 % (0.0-5.0); HEMATOCRIT. 21.1 % (36.0-48.0); LYMPHOCYTES % 12.5 % (20.0-50.0); MEAN CORPUSCULAR HEMOGLOBIN 27.4 pg (28.0-32.0); MEAN CORPUSCULAR VOLUME 84.6 fL (81.0-99.0); MEAN PLATELET VOLUME 9.3 fl (7.4-10.4); MONOCYTES % 11.7 % (2.0-8.0); NEUTROPHILS % 73.6 % (40.0-76.0); PLATELET 143 x1000/uL (130-400); RED BLOOD CELL COUNT 2.49 mill/uL (4.2-5.4); RED CELL DISTRIBUTION WIDTH 18.6 % (11.6-14.6)
[2022-07-16 08:59] LABS: HEMOGLOBIN. 6.8 g/dL (12.0-16.0)
[2022-07-16 10:14] LABS: CHLORIDE 111 mEq/L (98-107)
[2022-07-16] MEDS: PANTOPRAZOLE SODIUM 40 MG/VIAL IV SCH ×2 (11:16→17:29)
[2022-07-16] MEDS: POTASSIUM CHLORIDE 20MEQ TABLET SR PO SCH (11:17)
[2022-07-16] MEDS: AMLODIPINE 2.5MG TABLET PO SCH (11:17)
[2022-07-16 14:55] LABS: FERRITIN 9 ng/mL (10-291)
[2022-07-16 18:22] LABS: HEMATOCRIT 25.8 % (36.0-48.0); HEMOGLOBIN 8.3 g/dL (12.0-16.0)
[2022-07-17] VITALS: BP 149/55
[2022-07-17 01:28] LABS: HEMOGLOBIN 7.8 g/dL (12.0-16.0)
[2022-07-17 04:00] VITALS: BP 128/56
[2022-07-17 05:27] LABS: CHLORIDE 112 mEq/L (98-107)
[2022-07-17 06:30] LABS: BASOPHILS % 0.5 % (0.0-2.0); EOSINOPHILS % 1.8 % (0.0-5.0); HEMATOCRIT. 24.2 % (36.0-48.0); HEMOGLOBIN. 7.8 g/dL (12.0-16.0); LYMPHOCYTES % 11.8 % (20.0-50.0); MEAN CORPUSCULAR HEMOGLOBIN 27.3 pg (28.0-32.0); MEAN CORPUSCULAR VOLUME 84.8 fL (81.0-99.0); MEAN PLATELET VOLUME 9.6 fl (7.4-10.4); MONOCYTES % 11.8 % (2.0-8.0); NEUTROPHILS % 74.1 % (40.0-76.0); PLATELET 155 x1000/uL (130-400); RED BLOOD CELL COUNT 2.85 mill/uL (4.2-5.4); RED CELL DISTRIBUTION WIDTH 17.6 % (11.6-14.6)
[2022-07-17 08:00] VITALS: BP 95/59
[2022-07-17] MEDS: AMLODIPINE 2.5MG TABLET PO SCH (09:00)
[2022-07-17] MEDS: POTASSIUM CHLORIDE 20MEQ TABLET SR PO SCH (09:14)
[2022-07-17] MEDS: PANTOPRAZOLE SODIUM 40 MG/VIAL IV SCH ×2 (09:14→17:16)
[2022-07-17 12:00] VITALS: BP 140/53
[2022-07-17 12:19] LABS: HEMATOCRIT 26.8 % (36.0-48.0); HEMOGLOBIN 8.7 g/dL (12.0-16.0)
[2022-07-17 16:00] VITALS: BP 137/58
[2022-07-17] MEDS ORDERED: IPRATROPIUM/ALBUTEROL 0.5-3(2.5)MG/3ML NEB HHN PRN (18:30)
[2022-07-17 20:00] VITALS: BP 134/56
[2022-07-17] MEDS: IPRATROPIUM/ALBUTEROL 0.5-3(2.5)MG/3ML NEB HHN SCH (20:32)
[2022-07-17] MEDS: BUDESONIDE 0.5MG/2ML NEB HHN SCH (20:32)
[2022-07-18] VITALS (11 sets, daily range): BP systolic 109–142; BP diastolic 48–75
[2022-07-18 01:11] LABS: HEMATOCRIT 24.4 % (36.0-48.0); HEMOGLOBIN 7.8 g/dL (12.0-16.0)
[2022-07-18] MEDS: IPRATROPIUM/ALBUTEROL 0.5-3(2.5)MG/3ML NEB HHN SCH ×2 (01:37→21:02)
[2022-07-18 07:22] LABS: BASOPHILS % 0.3 % (0.0-2.0); EOSINOPHILS % 1.7 % (0.0-5.0); HEMATOCRIT. 21.8 % (36.0-48.0); LYMPHOCYTES % 14.1 % (20.0-50.0); MEAN CORPUSCULAR HEMOGLOBIN 27.4 pg (28.0-32.0); MEAN CORPUSCULAR VOLUME 85.8 fL (81.0-99.0); MEAN PLATELET VOLUME 9.3 fl (7.4-10.4); NEUTROPHILS % 70.9 % (40.0-76.0); PLATELET 151 x1000/uL (130-400); RED BLOOD CELL COUNT 2.54 mill/uL (4.2-5.4); RED CELL DISTRIBUTION WIDTH 18.1 % (11.6-14.6)
[2022-07-18 07:57] LABS: CHLORIDE 110 mEq/L (98-107)
[2022-07-18] MEDS: PANTOPRAZOLE SODIUM 40 MG/VIAL IV SCH ×2 (09:02→17:45)
[2022-07-18] MEDS: POTASSIUM CHLORIDE 20MEQ TABLET SR PO SCH (09:02)
[2022-07-18] MEDS: AMLODIPINE 2.5MG TABLET PO SCH (09:03)
[2022-07-18] MEDS ORDERED: ALBUTEROL (0.083%) 2.5MG/3ML NEB HHN PRN ×2 (14:04→14:15)
[2022-07-18] MEDS ORDERED: ALBUTEROL 6.7GM HFA INHALER ORI PRN (14:15)
[2022-07-18] MEDS: BUDESONIDE 0.5MG/2ML NEB HHN SCH (21:02)
[2022-07-18 21:17] LABS: HEMATOCRIT 25.4 % (36.0-48.0); HEMOGLOBIN 8.4 g/dL (12.0-16.0)
[2022-07-19] VITALS: BP 128/52
[2022-07-19 00:35] LABS: HEMATOCRIT 25.5 % (36.0-48.0); HEMOGLOBIN 8.5 g/dL (12.0-16.0)
[2022-07-19] MEDS: IPRATROPIUM/ALBUTEROL 0.5-3(2.5)MG/3ML NEB HHN SCH ×4 (01:41→21:05)
[2022-07-19 04:00] VITALS: BP 96/54
[2022-07-19 08:00] VITALS: BP 132/60
[2022-07-19] MEDS: AMLODIPINE 2.5MG TABLET PO SCH (08:15)
[2022-07-19] MEDS: POTASSIUM CHLORIDE 20MEQ TABLET SR PO SCH (08:16)
[2022-07-19] MEDS: PANTOPRAZOLE SODIUM 40 MG/VIAL IV SCH ×2 (08:17→17:28)
[2022-07-19] MEDS: BUDESONIDE 0.5MG/2ML NEB HHN SCH ×2 (10:32→21:05)
[2022-07-19 12:00] VITALS: BP 140/63
[2022-07-19 12:58] LABS: BASOPHILS % 0.4 % (0.0-2.0); EOSINOPHILS % 1.4 % (0.0-5.0); HEMOGLOBIN. 8.1 g/dL (12.0-16.0); LYMPHOCYTES % 16.5 % (20.0-50.0); MEAN CORPUSCULAR HEMOGLOBIN 27.8 pg (28.0-32.0); MEAN CORPUSCULAR VOLUME 85.5 fL (81.0-99.0); NEUTROPHILS % 69.7 % (40.0-76.0); PLATELET 169 x1000/uL (130-400); RED BLOOD CELL COUNT 2.92 mill/uL (4.2-5.4); RED CELL DISTRIBUTION WIDTH 17.6 % (11.6-14.6)
[2022-07-19 13:11] LABS: CHLORIDE 111 mEq/L (98-107); PROTHROMBIN TIME 10.9 sec (9.6-11.0)
[2022-07-19 16:00] VITALS: BP 141/61
[2022-07-19 20:00] VITALS: BP 130/58
[2022-07-20] VITALS: BP 126/56
[2022-07-20 04:00] VITALS: BP 119/53
[2022-07-20 06:14] LABS: PROTHROMBIN TIME 11.2 sec (9.6-11.0)
[2022-07-20 08:00] VITALS: BP 142/69
[2022-07-20] MEDS: POTASSIUM CHLORIDE 20MEQ TABLET SR PO SCH (09:47)
[2022-07-20] MEDS: PANTOPRAZOLE SODIUM 40 MG/VIAL IV SCH ×2 (09:47→19:32)
[2022-07-20] MEDS: AMLODIPINE 2.5MG TABLET PO SCH (09:51)
[2022-07-20] MEDS: AMBRISENTAN 10 MG PO SCH (09:54)
[2022-07-20] MEDS: IPRATROPIUM/ALBUTEROL 0.5-3(2.5)MG/3ML NEB HHN SCH ×3 (09:55→22:11)
[2022-07-20] MEDS: BUDESONIDE 0.5MG/2ML NEB HHN SCH (09:56)
[2022-07-20 16:00] VITALS: BP 136/53
[2022-07-20 16:52] LABS: CHLORIDE 108 mEq/L (98-107)
[2022-07-20 17:06] LABS: BASOPHILS % 0.4 % (0.0-2.0); EOSINOPHILS % 1.5 % (0.0-5.0); HEMATOCRIT. 27.5 % (36.0-48.0); HEMOGLOBIN. 8.6 g/dL (12.0-16.0); LYMPHOCYTES % 14.6 % (20.0-50.0); MEAN CORPUSCULAR HEMOGLOBIN 27.2 pg (28.0-32.0); MEAN CORPUSCULAR VOLUME 86.6 fL (81.0-99.0); MEAN PLATELET VOLUME 9.1 fl (7.4-10.4); MONOCYTES % 10.7 % (2.0-8.0); NEUTROPHILS % 72.8 % (40.0-76.0); PLATELET 203 x1000/uL (130-400); RED BLOOD CELL COUNT 3.17 mill/uL (4.2-5.4); RED CELL DISTRIBUTION WIDTH 17.8 % (11.6-14.6)
[2022-07-20 20:00] VITALS: BP 135/62
[2022-07-20 22:02] LABS: HEMATOCRIT 26.6 % (36.0-48.0); HEMOGLOBIN 8.5 g/dL (12.0-16.0)
[2022-07-21 04:00] VITALS: BP 131/59
[2022-07-21 08:00] VITALS: BP 135/60
[2022-07-21] MEDS: PANTOPRAZOLE SODIUM 40 MG/VIAL IV SCH ×2 (09:12→17:54)
[2022-07-21] MEDS: AMBRISENTAN 10 MG PO SCH (09:12)
[2022-07-21] MEDS: POTASSIUM CHLORIDE 20MEQ TABLET SR PO SCH (09:13)
[2022-07-21] MEDS: AMLODIPINE 2.5MG TABLET PO SCH (09:13)
[2022-07-21] MEDS: IPRATROPIUM/ALBUTEROL 0.5-3(2.5)MG/3ML NEB HHN SCH ×2 (10:32→16:03)
[2022-07-21 12:00] VITALS: BP 150/75
[2022-07-21 14:10] LABS: BASOPHILS % 0.4 % (0.0-2.0); EOSINOPHILS % 1.9 % (0.0-5.0); HEMATOCRIT. 25.2 % (36.0-48.0); LYMPHOCYTES % 14.3 % (20.0-50.0); MEAN CORPUSCULAR HEMOGLOBIN 27.4 pg (28.0-32.0); MEAN CORPUSCULAR VOLUME 85.9 fL (81.0-99.0); MEAN PLATELET VOLUME 8.8 fl (7.4-10.4); MONOCYTES % 11.7 % (2.0-8.0); NEUTROPHILS % 71.7 % (40.0-76.0); PLATELET 209 x1000/uL (130-400); RED BLOOD CELL COUNT 2.94 mill/uL (4.2-5.4); RED CELL DISTRIBUTION WIDTH 17.4 % (11.6-14.6)
[2022-07-21 14:17] LABS: PROTHROMBIN TIME 10.9 sec (9.6-11.0)
[2022-07-21 14:39] LABS: CHLORIDE 110 mEq/L (98-107)
[2022-07-21] MEDS: THEOPHYLLINE ANHYDROUS 80 MG/15 ML 120ML PO SCH ×2 (15:26→18:54)
[2022-07-21 16:00] VITALS: BP 150/75
[2022-07-21 18:36] VITALS: BP 149/72
[2022-07-22] VITALS: BP 122/59
[2022-07-22] MEDS: THEOPHYLLINE ANHYDROUS 80 MG/15 ML 120ML PO SCH ×3 (00:44→12:00)
[2022-07-22] MEDS: ACETAMINOPHEN 325MG TABLET PO PRN (03:56)
[2022-07-22 04:00] VITALS: BP 121/52
[2022-07-22 08:00] VITALS: BP 137/74
[2022-07-22 09:23] LABS: PROTHROMBIN TIME 10.8 sec (9.6-11.0)
[2022-07-22 09:27] LABS: BASOPHILS % 0.3 % (0.0-2.0); EOSINOPHILS % 1.8 % (0.0-5.0); HEMATOCRIT. 24.9 % (36.0-48.0); HEMOGLOBIN. 8.1 g/dL (12.0-16.0); LYMPHOCYTES % 13.6 % (20.0-50.0); MEAN CORPUSCULAR HEMOGLOBIN 27.8 pg (28.0-32.0); MEAN CORPUSCULAR VOLUME 85.8 fL (81.0-99.0); MEAN PLATELET VOLUME 8.8 fl (7.4-10.4); MONOCYTES % 13.1 % (2.0-8.0); NEUTROPHILS % 71.2 % (40.0-76.0); PLATELET 218 x1000/uL (130-400); RED CELL DISTRIBUTION WIDTH 17.9 % (11.6-14.6)
[2022-07-22] MEDS: PANTOPRAZOLE SODIUM 40 MG/VIAL IV SCH (09:44)
[2022-07-22] MEDS: POTASSIUM CHLORIDE 20MEQ TABLET SR PO SCH (09:44)
[2022-07-22] MEDS: AMBRISENTAN 10 MG PO SCH (09:44)
[2022-07-22] MEDS: AMLODIPINE 2.5MG TABLET PO SCH (09:44)
[2022-07-22 12:00] VITALS: BP 136/57
[2022-07-22 16:00] VITALS: BP 140/59
[2022-07-22 16:55] VITALS: BP 140/59
== END 2022-07-22 17:55 | disposition home or self-care (01) | DRG 377 ==
LOC: ER 11:22 → MICUSO 16:07 → EDBEDREQTM 16:14 → EDBEDREQ 16:14 → 7EST 07-13 02:00
PROVIDERS: ADMIT Hospitalist; ATTEND Hospitalist
PROC: 5A0935A Assistance with Respiratory Ventilation, Less than 24 Consecutive Hours, High Flow/Velocity Cannula (ICD-10-PCS; principal; 2022-07-13)
PROC: 30233N1 Transfusion of Nonautologous Red Blood Cells into Peripheral Vein, Percutaneous Approach (ICD-10-PCS; 2022-07-14)
DX: K92.2 Gastrointestinal hemorrhage, unspecified (principal); J96.21 Acute and chronic respiratory failure with hypoxia; N17.0 Acute kidney failure with tubular necrosis; D62 Acute posthemorrhagic anemia; D68.59 Other primary thrombophilia; E46 Unspecified protein-calorie malnutrition; I13.0 Hypertensive heart and chronic kidney disease with heart failure and stage 1 through stage 4 chronic kidney disease, or unspecified chronic kidney disease; I50.32 Chronic diastolic (congestive) heart failure; N18.9 Chronic kidney disease, unspecified; M48.061 Spinal stenosis, lumbar region without neurogenic claudication; J44.9 Chronic obstructive pulmonary disease, unspecified; Z20.822 Contact with and (suspected) exposure to COVID-19; I48.91 Unspecified atrial fibrillation; I27.20 Pulmonary hypertension, unspecified; E78.5 Hyperlipidemia, unspecified; I48.0 Paroxysmal atrial fibrillation; E87.6 Hypokalemia; E88.09 Other disorders of plasma-protein metabolism, not elsewhere classified; I08.1 Rheumatic disorders of both mitral and tricuspid valves; I44.1 Atrioventricular block, second degree; Z68.26 Body mass index [BMI] 26.0-26.9, adult; Z88.8 Allergy status to other drugs, medicaments and biological substances; Z79.899 Other long term (current) drug therapy; Z99.81 Dependence on supplemental oxygen; Z95.828 Presence of other vascular implants and grafts; Z86.718 Personal history of other venous thrombosis and embolism; Z79.01 Long term (current) use of anticoagulants; Z85.038 Personal history of other malignant neoplasm of large intestine; Z86.73 Personal history of transient ischemic attack (TIA), and cerebral infarction without residual deficits; Z90.49 Acquired absence of other specified parts of digestive tract
CPT/HCPCS: 36415; 71045; 74176; 78278; 80048; 80053; 80061; 80076; 81003; 82607; 82728; 82746; 83540; 83550; 83605; 83735; 83880; 84443; 84484; 85014; 85018; 85025; 85044; 86850; 86900; 86920; 87426; 93005; 94640; 99285; A9560; C1893; C9113; J0456; J0696; J2405; J7030; J7626; P9016

== ENCOUNTER 2022-09-17 11:53 | Inpatient (IN) | payer MEDICARE, MEDICAID ==
[~2022-09-17] VITALS: Ht 170.2 cm; Wt 67.9 kg
[~2022-09-17 11:53] MED LIST changes: +ALBU18HF2 IH; +APIX2.5T PO; +ASPI-1497 PO; +CRES10 PO; +DIGO125T80 PO; +DILT240T12 PO; +FOLI0.8T23 MT; +METO5TAB7 PO; +PRED10TA23 PO; +SILD20TA PO
[2022-09-17] MEDS ORDERED: KETOROLAC 30MG/ML VIAL IV STA (12:09)
[2022-09-17] MEDS ORDERED: ONDANSETRON HCL 4MG/2ML INJ IV STA (12:09)
[2022-09-17] MEDS ORDERED: FAMOTIDINE 20MG/2ML VIAL IV STA (12:09)
[2022-09-17] MEDS ORDERED: ALBUTEROL (0.083%) 2.5MG/3ML NEB HHN STA (12:09)
[2022-09-17 12:42] LABS: BG BASE EXCESS 5.6 mmol/L (-2.0-2.0); BG CARBOXYHEMOGLOBIN 0.9 % (0.5-1.5); BG DEOXYHEMOGLOBIN 0.4 % (0.0-5.0); BG FRACTION INSPIRED OXYGEN 36; BG HCO3 ACT 30.2 mmol/L (22.0-26.0); BG OXYGEN SATURATION 99.6 % (92.0-98.5); BG OXYHEMOGLOBIN 98.7 % (94.0-97.0); BG PCO2 44.4 mmHg (35.0-45.0); BG PH 7.451 (7.350-7.450); BG PO2 159.3 mmHg (75.0-100.0); BG SAMPLE SITE RIGHT RADIAL; BG VENT MODE NASAL CANNULA
[2022-09-17 13:06] LABS: BASOPHILS % 0.3 % (0.0-2.0); EOSINOPHILS % 1.1 % (0.0-5.0); HEMATOCRIT. 29.9 % (36.0-48.0); HEMOGLOBIN. 9.2 g/dL (12.0-16.0); LYMPHOCYTES % 8.9 % (20.0-50.0); MEAN CORPUSCULAR HEMOGLOBIN 22.9 pg (28.0-32.0); MEAN CORPUSCULAR VOLUME 74.7 fL (81.0-99.0); MEAN PLATELET VOLUME 8.8 fl (7.4-10.4); MONOCYTES % 9.9 % (2.0-8.0); NEUTROPHILS % 79.8 % (40.0-76.0); PLATELET 255 x1000/uL (130-400); RED CELL DISTRIBUTION WIDTH 20.1 % (11.6-14.6)
[2022-09-17 13:11] LABS: CHLORIDE 104 mEq/L (98-107)
[2022-09-17 13:44] LABS: ETHANOL BLOOD < 10 mg/dL
[2022-09-17] MEDS ORDERED: CEFTRIAXONE 1 G PREMIX 50 ML IV ONE (15:00)
[2022-09-17] MEDS ORDERED: AZITHROMYCIN 500MG/250ML 250 ML IV NR (15:19)
[2022-09-17] MEDS ORDERED: IPRATROPIUM/ALBUTEROL 0.5-3(2.5)MG/3ML NEB HHN PRN (15:45)
[2022-09-17 15:54] LABS: PROTHROMBIN TIME 11.1 sec (9.6-11.0)
[2022-09-17] MEDS ORDERED: NON FORMULARY PATIENT HOME MED XX SCH (16:00)
[2022-09-17] MEDS ORDERED: GUAIFENESIN 200MG/10ML SUGAR FREE UDC PO PRN (16:15)
[2022-09-17] MEDS ORDERED: CLONIDINE 0.1MG TABLET PO PRN ×2 (16:15→17:00)
[2022-09-17] MEDS ORDERED: DIPHENHYDRAMINE 50MG/ML VIAL IV PRN (16:15)
[2022-09-17] MEDS ORDERED: MAGNESIUM/ALUMINUM HYDROXIDE/SIMETHICONE 30ML UDC PO PRN (16:15)
[2022-09-17 16:23] LABS: CLARITY URINE CLEAR (CLEAR); COLOR URINE YELLOW (YELLOW); KETONES URINE NEGATIVE (NEGATIVE); LEUKOCYTE ESTERASE URINE TRACE (NEGATIVE); NITRITE URINE NEGATIVE (NEGATIVE); OCCULT BLOOD URINE NEGATIVE (NEGATIVE); PH URINE 6.5 (4.5-8.0); PROTEIN URINE 1+ (NEGATIVE); SPECIFIC GRAVITY URINE 1.013 (1.005-1.030); UROBILINOGEN URINE 0.2 E.U./dL (0.2-1.0)
[2022-09-17 17:00] VITALS: BP 156/55
[2022-09-17] MEDS ORDERED: DIATR MEGLU/DIATRIZOATE SOLN 30ML PO SCH (17:00)
[2022-09-17 17:06] LABS: *AMPHETAMINES SCREEN URINE NEGATIVE (NEGATIVE); *BARBITURATES SCREEN URINE NEGATIVE (NEGATIVE); *BENZODIAZEPINES SCREEN URINE NEGATIVE (NEGATIVE); *COCAINE SCREEN URINE NEGATIVE (NEGATIVE); CANNABINOID URINE SCREEN NEGATIVE (NEGATIVE); METHADONE URINE SCREEN NEGATIVE (NEGATIVE); OPIATES URINE SCREEN NEGATIVE (NEGATIVE); PHENCYCLIDINE URINE SCREEN NEGATIVE (NEGATIVE)
[2022-09-17 17:29] LABS: TOTAL IRON BINDING CAPACITY 437 ug/dL (250-450)
[2022-09-17 17:50] LABS: FERRITIN 12 ng/mL (10-291)
[2022-09-17 18:00] LABS: VITAMIN B12 SERUM 445 pg/mL (211-911)
[2022-09-17] MEDS: HYDROCHLOROTHIAZIDE 25MG TABLET PO SCH (18:47)
[2022-09-17] MEDS: FUROSEMIDE 40MG TABLET PO SCH (18:48)
[2022-09-17 20:00] VITALS: BP 143/52
[2022-09-17] MEDS: ATORVASTATIN CALCIUM 20MG TABLET PO SCH (20:19)
[2022-09-17] MEDS ORDERED: MEDICATION NOT ON FORMULARY EA (Rosuvastatin Calcium (Crestor) 10 MG) PO SCH (21:00)
[2022-09-18] VITALS: BP 119/50
[2022-09-18 04:00] VITALS: BP 107/59
[2022-09-18 07:22] LABS: HEMATOCRIT. 26.5 % (36.0-48.0); HEMOGLOBIN. 8.1 g/dL (12.0-16.0); MEAN CORPUSCULAR HEMOGLOBIN 22.6 pg (28.0-32.0); MEAN CORPUSCULAR VOLUME 73.9 fL (81.0-99.0); MEAN PLATELET VOLUME 8.6 fl (7.4-10.4); PLATELET 231 x1000/uL (130-400); RED BLOOD CELL COUNT 3.59 mill/uL (4.2-5.4); RED CELL DISTRIBUTION WIDTH 20.2 % (11.6-14.6)
[2022-09-18 07:24] LABS: CHLORIDE 100 mEq/L (98-107)
[2022-09-18 08:00] VITALS: BP 157/57
[2022-09-18 08:04] LABS: CREATINE KINASE 68 IU/L (26-192)
[2022-09-18 08:13] LABS: CREATINE KINASE 62 IU/L (26-192)
[2022-09-18] MEDS: BUDESONIDE 0.5MG/2ML NEB HHN SCH ×2 (08:59→21:26)
[2022-09-18] MEDS: IPRATROPIUM/ALBUTEROL 0.5-3(2.5)MG/3ML NEB HHN SCH ×3 (09:00→16:49)
[2022-09-18] MEDS ORDERED: AMBRISENTAN MT SCH (09:00)
[2022-09-18] MEDS ORDERED: ASPIRIN 81MG EC TABLET PO SCH (09:00)
[2022-09-18] MEDS ORDERED: DIATR MEGLU/DIATRIZOATE SOLN 30ML PO NR (09:00)
[2022-09-18] MEDS ORDERED: APIXABAN 2.5 MG TABLET PO SCH (09:00)
[2022-09-18] MEDS ORDERED: DILTIAZEM HCL 120MG CAPSULE ER 24HR PO SCH (09:00)
[2022-09-18] MEDS ORDERED: POTASSIUM CHLORIDE 20MEQ TABLET SR PO NR (09:00)
[2022-09-18] MEDS ORDERED: MEDICATION NOT ON FORMULARY EA (Diltiazem HCl (Diltiazem ER) 240 MG) PO SCH (09:00)
[2022-09-18] MEDS ORDERED: PANTOPRAZOLE SODIUM 40 MG/VIAL IV SCH (09:00)
[2022-09-18] MEDS: FUROSEMIDE 40MG TABLET PO SCH (09:09)
[2022-09-18] MEDS: BUSPIRONE HCL 5MG TABLET PO SCH (09:09)
[2022-09-18] MEDS: HYDROCHLOROTHIAZIDE 25MG TABLET PO SCH (09:09)
[2022-09-18 09:55] LABS: NUCLEATED RED BLOOD CELLS 1 /100 WBC
[2022-09-18 09:56] LABS: PLATELET ESTIMATE NORMAL
[2022-09-18 12:06] VITALS: BP 147/50
[2022-09-18] MEDS ORDERED: IOHEXOL-300 50 ML BOTTLE IV ONE (15:21)
[2022-09-18 16:00] VITALS: BP 135/58
[2022-09-18 20:00] VITALS: BP 166/58
[2022-09-18] MEDS: ATORVASTATIN CALCIUM 20MG TABLET PO SCH (20:42)
[2022-09-18] MEDS ORDERED: IPRATROPIUM BROMIDE (0.02%) 0.5MG/2.5ML NEB HHN PRN (21:22)
[2022-09-18] MEDS ORDERED: ALBUTEROL (0.083%) 2.5MG/3ML NEB HHN PRN (21:22)
[2022-09-19] VITALS: BP 135/46
[2022-09-19 04:00] VITALS: BP 134/50
[2022-09-19 06:30] LABS: BASOPHILS % 0.4 % (0.0-2.0); EOSINOPHILS % 2.1 % (0.0-5.0); HEMATOCRIT. 26.4 % (36.0-48.0); LYMPHOCYTES % 9.9 % (20.0-50.0); MEAN CORPUSCULAR HEMOGLOBIN 22.4 pg (28.0-32.0); MEAN CORPUSCULAR VOLUME 73.9 fL (81.0-99.0); MEAN PLATELET VOLUME 8.1 fl (7.4-10.4); MONOCYTES % 13.8 % (2.0-8.0); NEUTROPHILS % 73.8 % (40.0-76.0); PLATELET 233 x1000/uL (130-400); RED BLOOD CELL COUNT 3.56 mill/uL (4.2-5.4); RED CELL DISTRIBUTION WIDTH 20.2 % (11.6-14.6)
[2022-09-19 07:00] LABS: CHLORIDE 98 mEq/L (98-107)
[2022-09-19] MEDS: ALBUTEROL (0.083%) 2.5MG/3ML NEB HHN SCH ×3 (07:27→21:31)
[2022-09-19] MEDS: IPRATROPIUM BROMIDE (0.02%) 0.5MG/2.5ML NEB HHN SCH ×3 (07:27→21:30)
[2022-09-19 08:00] VITALS: BP 137/67
[2022-09-19] MEDS: BUSPIRONE HCL 5MG TABLET PO SCH (08:30)
[2022-09-19] MEDS: HYDROCHLOROTHIAZIDE 25MG TABLET PO SCH (08:30)
[2022-09-19] MEDS: PANTOPRAZOLE 40MG DR TABLET PO SCH (08:30)
[2022-09-19] MEDS: FUROSEMIDE 40MG TABLET PO SCH (08:30)
[2022-09-19] MEDS: BUDESONIDE 0.5MG/2ML NEB HHN SCH (11:10)
[2022-09-19 11:30] LABS: DIGOXIN 1.6 ng/mL (0.9-2.0)
[2022-09-19] MEDS: COLCHICINE 0.6MG TABLET PO SCH (12:05)
[2022-09-19 12:37] VITALS: BP 126/41
[2022-09-19 16:14] VITALS: BP 127/64
[2022-09-19 20:00] VITALS: BP 114/54
[2022-09-19] MEDS: ATORVASTATIN CALCIUM 20MG TABLET PO SCH (21:35)
[2022-09-20] VITALS: BP 145/56
[2022-09-20 04:00] VITALS: BP 156/60
[2022-09-20] MEDS: IPRATROPIUM BROMIDE (0.02%) 0.5MG/2.5ML NEB HHN SCH ×3 (04:02→14:54)
[2022-09-20] MEDS: ALBUTEROL (0.083%) 2.5MG/3ML NEB HHN SCH ×3 (04:03→14:54)
[2022-09-20] MEDS: PANTOPRAZOLE 40MG DR TABLET PO SCH (06:09)
[2022-09-20 06:16] LABS: BASOPHILS % 0.2 % (0.0-2.0); EOSINOPHILS % 1.7 % (0.0-5.0); HEMATOCRIT. 27.5 % (36.0-48.0); HEMOGLOBIN. 8.5 g/dL (12.0-16.0); LYMPHOCYTES % 13.8 % (20.0-50.0); MEAN CORPUSCULAR HEMOGLOBIN 22.6 pg (28.0-32.0); MEAN CORPUSCULAR VOLUME 73.2 fL (81.0-99.0); MEAN PLATELET VOLUME 8.8 fl (7.4-10.4); MONOCYTES % 14.1 % (2.0-8.0); NEUTROPHILS % 70.2 % (40.0-76.0); PLATELET 246 x1000/uL (130-400); RED BLOOD CELL COUNT 3.76 mill/uL (4.2-5.4); RED CELL DISTRIBUTION WIDTH 20.1 % (11.6-14.6)
[2022-09-20 08:00] VITALS: BP 165/72
[2022-09-20 08:17] LABS: CHLORIDE 96 mEq/L (98-107)
[2022-09-20 08:23] LABS: PHOSPHORUS 3.3 mg/dL (2.5-4.9)
[2022-09-20] MEDS: BUSPIRONE HCL 5MG TABLET PO SCH (09:22)
[2022-09-20] MEDS: COLCHICINE 0.6MG TABLET PO SCH (09:22)
[2022-09-20] MEDS: FUROSEMIDE 40MG TABLET PO SCH (09:22)
[2022-09-20] MEDS: HYDROCHLOROTHIAZIDE 25MG TABLET PO SCH (09:22)
[2022-09-20] MEDS ORDERED: POTASSIUM CHLORIDE 20MEQ TABLET SR PO NR ×2 (11:00→13:00)
[2022-09-20 12:00] VITALS: BP 118/51
[2022-09-20 13:07] LABS: FOLATE HEMOLYSATE > 620.0 ng/mL (Not Estab.)
[2022-09-20] MEDS: BUDESONIDE 0.5MG/2ML NEB HHN SCH (14:51)
[2022-09-20 16:00] VITALS: BP 157/67
[2022-09-20] MEDS ORDERED: AMLO5TAB88 PO (18:34)
[2022-09-20] MEDS ORDERED: POTA-205 PO (18:35)
[2022-09-20] MEDS ORDERED: DOCU-150 PO (18:36)
[2022-09-20] MEDS ORDERED: FURO20TA4 PO (18:37)
[2022-09-20] MEDS ORDERED: THE2 PO (18:38)
[2022-09-20] MEDS ORDERED: LOSA25TA26 PO (18:40)
[2022-09-20] MEDS ORDERED: DILT240C96 PO (18:41)
[2022-09-20 20:23] VITALS: BP 144/57
[2022-09-20] MEDS: ATORVASTATIN CALCIUM 20MG TABLET PO SCH (21:03)
== END 2022-09-20 21:25 | DRG 189 ==
LOC: ER 11:53 → MICUSO 15:32 → 7WST 15:32 → UNDOADMIN 15:32
PROVIDERS: ADMIT Hospitalist; ATTEND Hospitalist
DX: J96.20 Acute and chronic respiratory failure, unspecified whether with hypoxia or hypercapnia (principal); J18.9 Pneumonia, unspecified organism; J44.0 Chronic obstructive pulmonary disease with (acute) lower respiratory infection; I50.32 Chronic diastolic (congestive) heart failure; E87.3 Alkalosis; I31.39 Other pericardial effusion (noninflammatory); I48.4 Atypical atrial flutter; I27.20 Pulmonary hypertension, unspecified; T46.0X5A Adverse effect of cardiac-stimulant glycosides and drugs of similar action, initial encounter; I48.0 Paroxysmal atrial fibrillation; I11.0 Hypertensive heart disease with heart failure; E87.6 Hypokalemia; D50.9 Iron deficiency anemia, unspecified; E11.9 Type 2 diabetes mellitus without complications; I34.0 Nonrheumatic mitral (valve) insufficiency; I44.1 Atrioventricular block, second degree; K29.70 Gastritis, unspecified, without bleeding; Z20.822 Contact with and (suspected) exposure to COVID-19; Z66 Do not resuscitate; M10.9 Gout, unspecified; E78.49 Other hyperlipidemia; R53.81 Other malaise; E78.5 Hyperlipidemia, unspecified; R91.8 Other nonspecific abnormal finding of lung field; M48.061 Spinal stenosis, lumbar region without neurogenic claudication; I25.10 Atherosclerotic heart disease of native coronary artery without angina pectoris; Z79.899 Other long term (current) drug therapy; Z85.038 Personal history of other malignant neoplasm of large intestine; Z99.81 Dependence on supplemental oxygen; Z79.01 Long term (current) use of anticoagulants; Z90.49 Acquired absence of other specified parts of digestive tract; Z95.828 Presence of other vascular implants and grafts; Y92.89 Other specified places as the place of occurrence of the external cause; Z88.6 Allergy status to analgesic agent; Z86.718 Personal history of other venous thrombosis and embolism
CPT/HCPCS: 36415; 36600; 71045; 71260; 74177; 80048; 80053; 80162; 80305; 80320; 81003; 82375; 82550; 82607; 82728; 82747; 82805; 83540; 83550; 83735; 83880; 84100; 84484; 84550; 85014; 85025; 85379; 86850; 86900; 87426; 87804; 93005; 93306; 94640; 97162; 99285; C9113; J0456; J1885; J2405; J3490; J7626; Q9963; Q9967; G0480

== ENCOUNTER 2022-10-16 12:47 | Inpatient (IN) | payer MEDICARE, MEDICAID ==
[~2022-10-16] VITALS: Ht 165.1 cm; Wt 67.6 kg
[~2022-10-16 12:47] MED LIST changes: -ALBU05 IH; -ALBU18HF2 IH; +AMLO5TAB88 PO; +DOCU-150 PO; -FURO-151 PO; +FURO20TA4 PO; -HYDR25TA PO; +LOSA25TA26 PO; -LOVA20TA2 PO; -POTA-194 PO; +POTA-205 PO; +THE2 PO; -TIOT18CA3 IH
[2022-10-16 14:21] LABS: HEMATOCRIT. 29.7 % (36.0-48.0); HEMOGLOBIN. 8.7 g/dL (12.0-16.0); MEAN CORPUSCULAR HEMOGLOBIN 20.6 pg (28.0-32.0); MEAN PLATELET VOLUME 8.2 fl (7.4-10.4); PLATELET 219 x1000/uL (130-400); RED BLOOD CELL COUNT 4.24 mill/uL (4.2-5.4); RED CELL DISTRIBUTION WIDTH 21.4 % (11.6-14.6)
[2022-10-16 14:25] LABS: CHLORIDE 104 mEq/L (98-107)
[2022-10-16 14:44] LABS: PLATELET ESTIMATE NORMAL
[2022-10-16] MEDS ORDERED: ALBUTEROL (0.083%) 2.5MG/3ML NEB HHN STA (15:09)
[2022-10-16] MEDS ORDERED: IPRATROPIUM BROMIDE (0.02%) 0.5MG/2.5ML NEB HHN STA (15:09)
[2022-10-16] MEDS ORDERED: METHYLPREDNISOLONE SOD SUCC 125 MG/2 ML VIAL IV STA (15:09)
[2022-10-16] MEDS ORDERED: ALBUTEROL (0.083%) 2.5MG/3ML NEB ONE (17:02)
[2022-10-16] MEDS ORDERED: IPRATROPIUM BROMIDE (0.02%) 0.5MG/2.5ML NEB ONE (17:04)
[2022-10-16] MEDS ORDERED: DIPHENHYDRAMINE 50MG/ML VIAL IV PRN (19:30)
[2022-10-16] MEDS ORDERED: ONDANSETRON HCL 4MG/2ML INJ IV PRN (19:30)
[2022-10-16] MEDS ORDERED: ACETAMINOPHEN 325MG TABLET PO PRN (19:30)
[2022-10-16] MEDS ORDERED: CLONIDINE 0.1MG TABLET PO PRN (19:30)
[2022-10-16] MEDS ORDERED: IPRATROPIUM/ALBUTEROL 0.5-3(2.5)MG/3ML NEB HHN PRN (19:30)
[2022-10-16] MEDS ORDERED: METHYLPREDNISOLONE SOD SUCC 125 MG/2 ML VIAL IV SCH (21:00)
[2022-10-16] MEDS: METHYLPREDNISOLONE SOD SUCC 125 MG/2 ML VIAL IV SCH (23:07)
[2022-10-17] VITALS (7 sets, daily range): BP systolic 121–163; BP diastolic 71–83
[2022-10-17] MEDS: METHYLPREDNISOLONE SOD SUCC 125 MG/2 ML VIAL IV SCH ×2 (05:46→10:45)
[2022-10-17 10:08] LABS: HEMATOCRIT. 29.2 % (36.0-48.0); HEMOGLOBIN. 8.6 g/dL (12.0-16.0); MEAN CORPUSCULAR HEMOGLOBIN 20.8 pg (28.0-32.0); MEAN CORPUSCULAR VOLUME 70.3 fL (81.0-99.0); PLATELET 219 x1000/uL (130-400); RED BLOOD CELL COUNT 4.15 mill/uL (4.2-5.4); RED CELL DISTRIBUTION WIDTH 20.8 % (11.6-14.6)
[2022-10-17 10:24] LABS: CHLORIDE 101 mEq/L (98-107)
[2022-10-17 10:57] LABS: PLATELET ESTIMATE NORMAL
[2022-10-17] MEDS: ENOXAPARIN 30MG/0.3ML SYR SUBCUT SCH (11:00)
[2022-10-17] MEDS ORDERED: NON FORMULARY PATIENT HOME MED XX SCH (11:30)
[2022-10-17] MEDS: SILDENAFIL CITRATE 20MG TABLET PO SCH ×2 (14:41→22:46)
[2022-10-17] MEDS: IPRATROPIUM/ALBUTEROL 0.5-3(2.5)MG/3ML NEB HHN SCH (20:31)
[2022-10-17] MEDS: ATORVASTATIN CALCIUM 20MG TABLET PO SCH (20:47)
[2022-10-17] MEDS: AMLODIPINE 5MG TABLET PO SCH (20:47)
[2022-10-17] MEDS: CARVEDILOL 6.25 MG TABLET PO SCH (21:46)
[2022-10-18] MEDS: IPRATROPIUM/ALBUTEROL 0.5-3(2.5)MG/3ML NEB HHN SCH ×4 (01:55→20:49)
[2022-10-18 04:00] VITALS: BP 130/72
[2022-10-18] MEDS: SILDENAFIL CITRATE 20MG TABLET PO SCH ×3 (07:06→22:11)
[2022-10-18 08:02] VITALS: BP 129/82
[2022-10-18] MEDS: CARVEDILOL 6.25 MG TABLET PO SCH ×2 (08:15→21:43)
[2022-10-18] MEDS: AMLODIPINE 5MG TABLET PO SCH ×2 (08:15→21:43)
[2022-10-18] MEDS: PREDNISONE 20MG TABLET PO SCH (08:15)
[2022-10-18] MEDS: ENOXAPARIN 30MG/0.3ML SYR SUBCUT SCH ×2 (11:00→11:08)
[2022-10-18 12:00] VITALS: BP 128/71
[2022-10-18 16:00] VITALS: BP 126/73
[2022-10-18 20:00] VITALS: BP 142/104
[2022-10-18] MEDS: ATORVASTATIN CALCIUM 20MG TABLET PO SCH (21:42)
[2022-10-19] VITALS: BP 133/80
[2022-10-19] MEDS: IPRATROPIUM/ALBUTEROL 0.5-3(2.5)MG/3ML NEB HHN SCH ×2 (00:54→09:24)
[2022-10-19 04:07] VITALS: BP 123/63
[2022-10-19] MEDS: SILDENAFIL CITRATE 20MG TABLET PO SCH (06:11)
[2022-10-19 07:11] LABS: BASOPHILS % 0.1 % (0.0-2.0); EOSINOPHILS % 0.3 % (0.0-5.0); HEMATOCRIT. 25.6 % (36.0-48.0); HEMOGLOBIN. 7.7 g/dL (12.0-16.0); LYMPHOCYTES % 12.1 % (20.0-50.0); MEAN CORPUSCULAR VOLUME 69.9 fL (81.0-99.0); MEAN PLATELET VOLUME 8.6 fl (7.4-10.4); MONOCYTES % 12.7 % (2.0-8.0); NEUTROPHILS % 74.8 % (40.0-76.0); PLATELET 181 x1000/uL (130-400); RED BLOOD CELL COUNT 3.66 mill/uL (4.2-5.4); RED CELL DISTRIBUTION WIDTH 20.9 % (11.6-14.6)
[2022-10-19 08:00] VITALS: BP 124/85
[2022-10-19 08:23] LABS: CHLORIDE 106 mEq/L (98-107)
[2022-10-19] MEDS ORDERED: PRED10TA MT (08:27)
[2022-10-19] MEDS ORDERED: AMLO5TAB88 PO (08:27)
[2022-10-19] MEDS ORDERED: COR6 PO (08:27)
[2022-10-19] MEDS: AMLODIPINE 5MG TABLET PO SCH (08:51)
[2022-10-19] MEDS: CARVEDILOL 6.25 MG TABLET PO SCH (08:51)
[2022-10-19] MEDS: PREDNISONE 20MG TABLET PO SCH (08:52)
[2022-10-19] MEDS ORDERED: FAMO20TA8 MT (10:50)
[2022-10-19 10:55] VITALS: BP 124/84
[2022-10-20] MEDS ORDERED: PREDNISONE 10MG TABLET PO SCH (07:20)
== END 2022-10-19 12:55 | disposition home health service (06) | DRG 205 ==
LOC: ER 13:24 → 3WST 17:15 → EDBEDREQ 17:21
PROVIDERS: ADMIT Internal Medicine; ATTEND Internal Medicine
DX: M94.0 Chondrocostal junction syndrome [Tietze] (principal); J18.9 Pneumonia, unspecified organism; J96.00 Acute respiratory failure, unspecified whether with hypoxia or hypercapnia; J44.1 Chronic obstructive pulmonary disease with (acute) exacerbation; I82.411 Acute embolism and thrombosis of right femoral vein; I50.30 Unspecified diastolic (congestive) heart failure; I27.20 Pulmonary hypertension, unspecified; I48.0 Paroxysmal atrial fibrillation; E78.00 Pure hypercholesterolemia, unspecified; M10.9 Gout, unspecified; Z20.822 Contact with and (suspected) exposure to COVID-19; M48.061 Spinal stenosis, lumbar region without neurogenic claudication; E78.5 Hyperlipidemia, unspecified; R62.7 Adult failure to thrive; D72.825 Bandemia; I11.0 Hypertensive heart disease with heart failure; Z95.828 Presence of other vascular implants and grafts; Z85.038 Personal history of other malignant neoplasm of large intestine; Z90.49 Acquired absence of other specified parts of digestive tract; Z99.81 Dependence on supplemental oxygen; Z88.8 Allergy status to other drugs, medicaments and biological substances; Z79.899 Other long term (current) drug therapy
CPT/HCPCS: 36415; 71045; 80048; 80053; 82962; 83880; 84145; 84484; 85025; 87426; 93005; 93970; 94640; 97116; 97162; 99291; C9803; J1650; J2930; J7512

== ENCOUNTER 2023-01-20 23:25 | Inpatient (IN) | payer MEDICARE, MEDICAID ==
[~2023-01-20] VITALS: Ht 170.2 cm; Wt 74.8 kg
[~2023-01-20 23:25] MED LIST changes: -APIX2.5T PO; -ASPI-1497 PO; -CLON-457 PO; +COR6 PO; -DIGO125T80 PO; +DILT240C96 PO; -DILT240T12 PO; -LOSA25TA26 PO; -METO5TAB7 PO; +P20 PO; -POTA-205 PO; +PRED10TA PO; -PRED10TA23 PO; -THE2 PO; +WHEA152P PO; +XALAO EACHEYE
[2023-01-20 23:35] VITALS: BP 119/60; PULSE 79; RESP 18; TEMP 97.9
[2023-01-21 00:10] VITALS: BP 119/60; PULSE 83; RESP 18; TEMP 97.9
[2023-01-21 00:25] VITALS: BP 127/61; PULSE 81; RESP 18; TEMP 97.6
[2023-01-21] MEDS ORDERED: ACETAMINOPHEN 325MG TABLET PO PRN (01:30)
[2023-01-21] MEDS ORDERED: IPRATROPIUM BROMIDE (0.02%) 0.5MG/2.5ML NEB HHN PRN (01:30)
[2023-01-21] MEDS ORDERED: DEXTROSE 50% WATER 50ML SYRINGE IV PRN (01:30)
[2023-01-21] MEDS ORDERED: CLONIDINE 0.1MG TABLET PO PRN (01:30)
[2023-01-21] MEDS ORDERED: SODIUM CHLORIDE 0.9% 1,000 ML IV SCH (01:30)
[2023-01-21 01:40] VITALS: BP 119/62; PULSE 83; RESP 18; TEMP 97.5
[2023-01-21 03:48] LABS: MEAN CORPUSCULAR VOLUME 87.2 fL (81.0-99.0); MEAN PLATELET VOLUME 8.4 fl (7.4-10.4); PLATELET 251 x1000/uL (130-400); RED BLOOD CELL COUNT 2.32 mill/uL (4.2-5.4); RED CELL DISTRIBUTION WIDTH 18.8 % (11.6-14.6)
[2023-01-21 03:54] LABS: INR 1.1; PROTHROMBIN TIME 11.3 sec (9.6-11.0)
[2023-01-21 03:55] LABS: CHLORIDE 114 mEq/L (98-107)
[2023-01-21 04:16] LABS: HEMATOCRIT. 20.2 % (36.0-48.0); HEMOGLOBIN. 6.5 g/dL (12.0-16.0)
[2023-01-21 05:00] LABS: PLATELET ESTIMATE NORMAL
[2023-01-21 05:08] VITALS: BP 89/67; PULSE 111; RESP 20; TEMP 98.1
[2023-01-21 05:10] VITALS: BP 102/66; PULSE 102; RESP 20
[2023-01-21] MEDS ORDERED: DILTIAZEM HCL 60MG TABLET PO SCH (06:00)
[2023-01-21] MEDS ORDERED: SILDENAFIL CITRATE 20MG TABLET PO SCH (06:00)
[2023-01-21] MEDS ORDERED: BLOOD SUGAR DIAGNOSTIC STRIP TEST SCH (06:30)
[2023-01-21] MEDS ORDERED: DICLOFENAC SODIUM 75MG DR (EC) TABLET PO SCH (07:00)
[2023-01-21] MEDS ORDERED: PANTOPRAZOLE SODIUM 40 MG/VIAL IV SCH (09:00)
[2023-01-21] MEDS ORDERED: AMBRISENTAN 10 MG TAB PO SCH (09:00)
[2023-01-21] MEDS ORDERED: INSULIN LISPRO 100 UNITS/ML SUBCUT SCH (09:00)
[2023-01-21] MEDS ORDERED: ALLOPURINOL 100 MG TABLET PO SCH (09:00)
[2023-01-21] MEDS ORDERED: PREDNISONE 5MG TABLET PO SCH (09:00)
[2023-01-21] MEDS ORDERED: COLCHICINE 0.6MG TABLET PO SCH (09:00)
[2023-01-21] MEDS ORDERED: LIDOCAINE 5% PATCH TOP SCH (09:00)
[2023-01-21] MEDS ORDERED: ATORVASTATIN CALCIUM 10MG TABLET PO SCH (21:00)
== END 2023-01-21 06:07 | disposition short-term general hospital (02) | DRG 74 ==
PROVIDERS: ADMIT Physical Medicine & Rehabilitation Spinal Cord Injury Medicine; ATTEND Internal Medicine Critical Care Medicine
DX: G62.9 Polyneuropathy, unspecified (principal); I82.503 Chronic embolism and thrombosis of unspecified deep veins of lower extremity, bilateral; K92.2 Gastrointestinal hemorrhage, unspecified; N17.9 Acute kidney failure, unspecified; I50.32 Chronic diastolic (congestive) heart failure; I11.0 Hypertensive heart disease with heart failure; I27.20 Pulmonary hypertension, unspecified; I48.0 Paroxysmal atrial fibrillation; J44.9 Chronic obstructive pulmonary disease, unspecified; K57.30 Diverticulosis of large intestine without perforation or abscess without bleeding; K64.8 Other hemorrhoids; M10.9 Gout, unspecified; M19.072 Primary osteoarthritis, left ankle and foot; G89.29 Other chronic pain; E78.5 Hyperlipidemia, unspecified; M53.2X6 Spinal instabilities, lumbar region; R26.89 Other abnormalities of gait and mobility; R26.9 Unspecified abnormalities of gait and mobility; R53.81 Other malaise; M48.061 Spinal stenosis, lumbar region without neurogenic claudication; Z77.22 Contact with and (suspected) exposure to environmental tobacco smoke (acute) (chronic); Z82.49 Family history of ischemic heart disease and other diseases of the circulatory system; Z82.5 Family history of asthma and other chronic lower respiratory diseases; Z87.19 Personal history of other diseases of the digestive system; Z95.828 Presence of other vascular implants and grafts; Z99.81 Dependence on supplemental oxygen
CPT/HCPCS: 36415; 80053; 84134; 85025

== ENCOUNTER 2023-02-06 15:28 | Inpatient (IN) | payer MEDICARE, MEDICAID ==
[2023-02-06] VITALS (37 sets, daily range): BP systolic 67–126; BP diastolic 32–82; PULSE 97–193; RESP 11–35; TEMP 98–98.7; O2SAT 98
[~2023-02-06] VITALS: Ht 170.2 cm; Wt 86.2 kg
[~2023-02-06 15:28] MED LIST changes: -AMBR10TA3 MT; -AMLO5TAB88 PO; -BACL-141 PO; -BUPR-102 PO; -BUSP5TAB3 PO; -COR6 PO; -CRES10 PO; -FURO20TA4 PO; -LORA-250 PO; -P20 PO; -WHEA152P PO; -XALAO EACHEYE
[2023-02-06] MEDS ORDERED: DIGOXIN 500MCG/2ML AMP IV NR (15:45)
[2023-02-06] MEDS ORDERED: GUAIFENESIN 200MG/10ML SUGAR FREE UDC PO PRN (16:00)
[2023-02-06] MEDS ORDERED: IPRATROPIUM/ALBUTEROL 0.5-3(2.5)MG/3ML NEB HHN PRN (16:00)
[2023-02-06] MEDS ORDERED: CLONIDINE 0.1MG TABLET PO PRN (16:00)
[2023-02-06] MEDS ORDERED: ONDANSETRON HCL 4MG/2ML INJ IV PRN (16:00)
[2023-02-06] MEDS ORDERED: IPRATROPIUM/ALBUTEROL 0.5-3(2.5)MG/3ML NEB HHN SCH (16:00)
[2023-02-06] MEDS ORDERED: ACETAMINOPHEN 325MG TABLET PO PRN ×2 (16:00)
[2023-02-06] MEDS ORDERED: DOCUSATE SODIUM 100MG CAPSULE PO PRN (16:00)
[2023-02-06] MEDS ORDERED: MAGNESIUM/ALUMINUM HYDROXIDE/SIMETHICONE 30ML UDC PO PRN (16:00)
[2023-02-06] MEDS ORDERED: HYDROMORPHONE HCL/PF 2MG/ML CPJ IV PRN (16:00)
[2023-02-06] MEDS ORDERED: NALOXONE HCL 0.4MG/ML VIAL IV PRN (16:15)
[2023-02-06] MEDS: BLOOD SUGAR DIAGNOSTIC STRIP TEST SCH ×2 (16:16→21:00)
[2023-02-06] MEDS: DILTIAZEM HCL 125 MG in DEXT 5% WATER 100 ML IV PRN ×2 (16:18→22:55)
[2023-02-06] MEDS: HYDROMORPHONE HCL/PF 2MG/ML CPJ IV PRN ×2 (16:27→22:55)
[2023-02-06] MEDS: INSULIN LISPRO 100 UNITS/ML SUBCUT SCH ×2 (16:39→21:00)
[2023-02-06] MEDS: PHENYLEPHRINE 100 MG in DEXT 5% WATER 240 ML IV PRN (16:48)
[2023-02-06] MEDS ORDERED: GENTAMICIN 100MG PREMIX 50 ML IV NR (17:00)
[2023-02-06] MEDS: MEROPENEM 1,000 MG in SODIUM CHLORIDE 0.9% 100 ML IV SCH (17:26)
[2023-02-06 17:33] LABS: HEMATOCRIT 38.1 % (36.0-48.0); HEMOGLOBIN 11.6 g/dL (12.0-16.0); MEAN CORPUSCULAR HEMOGLOBIN 27.2 pg (28.0-32.0); MEAN CORPUSCULAR VOLUME 88.8 fL (81.0-99.0); PLATELET 308 x1000/uL (130-400); RED BLOOD CELL COUNT 4.29 mill/uL (4.2-5.4); RED CELL DISTRIBUTION WIDTH 18.8 % (11.6-14.6)
[2023-02-06] MEDS ORDERED: AMBR10TA3 MT (17:58)
[2023-02-06] MEDS: IPRATROPIUM BROMIDE (0.02%) 0.5MG/2.5ML NEB HHN SCH (20:34)
[2023-02-06] MEDS: ATORVASTATIN CALCIUM 10MG TABLET PO SCH (21:45)
[2023-02-06] MEDS: DILTIAZEM HCL 60MG TABLET PO SCH (21:45)
[2023-02-06] MEDS ORDERED: PIPERACILLIN/TAZOBACTAM 3.375 G in DEXTROSE 5% WATER 50 ML IV SCH (22:00)
[2023-02-06 23:00] LABS: CREATINE KINASE 21 IU/L (26-192); CREATINE KINASE MB FRACTION 3.7 ng/mL (0.5-3.6)
[2023-02-07] VITALS (98 sets, daily range): BP systolic 49–128; BP diastolic 25–74; PULSE 67–121; RESP 11–29; TEMP 97.7–99.5; O2SAT 95–97
[2023-02-07] MEDS: PHENYLEPHRINE 100 MG in DEXT 5% WATER 240 ML IV PRN ×3 (00:30→15:30)
[2023-02-07] MEDS: IPRATROPIUM BROMIDE (0.02%) 0.5MG/2.5ML NEB HHN SCH ×4 (01:27→21:17)
[2023-02-07] MEDS: HYDROMORPHONE HCL/PF 2MG/ML CPJ IV PRN ×2 (03:45→22:44)
[2023-02-07] MEDS: MEROPENEM 1,000 MG in SODIUM CHLORIDE 0.9% 100 ML IV SCH ×2 (04:07→18:06)
[2023-02-07 05:23] LABS: HEMATOCRIT. 37.1 % (36.0-48.0); HEMOGLOBIN. 11.2 g/dL (12.0-16.0); MEAN CORPUSCULAR HEMOGLOBIN 27.3 pg (28.0-32.0); MEAN CORPUSCULAR VOLUME 90.3 fL (81.0-99.0); MEAN PLATELET VOLUME 9.9 fl (7.4-10.4); PLATELET 344 x1000/uL (130-400); RED BLOOD CELL COUNT 4.12 mill/uL (4.2-5.4); RED CELL DISTRIBUTION WIDTH 18.8 % (11.6-14.6)
[2023-02-07 05:27] LABS: CHLORIDE 105 mEq/L (98-107)
[2023-02-07 05:48] LABS: CREATINE KINASE 17 IU/L (26-192); CREATINE KINASE MB FRACTION 3.8 ng/mL (0.5-3.6); HDL CHOLESTEROL 39 mg/dL (40-59); LDL CHOLESTEROL 25 mg/dL (5-100); T4 FREE 1.07 ng/dL (0.76-1.46)
[2023-02-07] MEDS: DILTIAZEM HCL 60MG TABLET PO SCH ×3 (05:48→21:59)
[2023-02-07] MEDS: BLOOD SUGAR DIAGNOSTIC STRIP TEST SCH ×4 (06:01→21:57)
[2023-02-07] MEDS: INSULIN LISPRO 100 UNITS/ML SUBCUT SCH ×4 (06:01→21:57)
[2023-02-07] MEDS ORDERED: SODIUM BICARBONATE 8.4% 1 MEQ/ML 50ML SYR IV NR (09:00)
[2023-02-07] MEDS ORDERED: DEXTROSE 50% WATER 50ML SYRINGE IV NR (09:00)
[2023-02-07] MEDS ORDERED: INSULIN REGULAR (HUMULIN R) 300UNITS/3ML VIAL IV NR (09:00)
[2023-02-07] MEDS: PANTOPRAZOLE SODIUM 40 MG/VIAL IV SCH (09:26)
[2023-02-07] MEDS: AMBRISENTAN 10MG TABLET PO SCH (09:47)
[2023-02-07] MEDS ORDERED: LIDOCAINE HCL 1% 10 MG/ML 10ML VIAL ONE ×2 (09:49→13:45)
[2023-02-07] MEDS ORDERED: CALCIUM GLUCONATE 1GM PREMIX 50 ML IV NR (10:00)
[2023-02-07 11:23] LABS: INR 1.2; PROTHROMBIN TIME 12.8 sec (9.6-11.0)
[2023-02-07] MEDS ORDERED: MENTHOL/LANOLIN/CALAMINE/ZN OX OINT 71GM TOP SCH (13:00)
[2023-02-07 13:46] LABS: PLATELET ESTIMATE NORMAL
[2023-02-07] MEDS: METRONIDAZOLE 500 MG PREMIX 100 ML IV SCH ×2 (16:41→23:51)
[2023-02-07] MEDS: VANCOMYCIN 1000MG/20ML ORAL SOLN PO SCH ×2 (18:55→23:51)
[2023-02-07] MEDS: MENTHOL/LANOLIN/CALAMINE/ZN OX OINT 71GM TOP SCH (21:19)
[2023-02-07] MEDS: ATORVASTATIN CALCIUM 10MG TABLET PO SCH (21:59)
[2023-02-08] VITALS (92 sets, daily range): BP systolic 98–155; BP diastolic 47–92; PULSE 67–122; RESP 6–34; TEMP 97–98.7; O2SAT 95–97
[2023-02-08] MEDS: IPRATROPIUM BROMIDE (0.02%) 0.5MG/2.5ML NEB HHN SCH ×4 (01:37→20:05)
[2023-02-08] MEDS: PHENYLEPHRINE 100 MG in DEXT 5% WATER 240 ML IV PRN (02:12)
[2023-02-08] MEDS ORDERED: DEXT 5%/0.9% NACL 1,000 ML IV ONE (02:45)
[2023-02-08 02:53] LABS: CLARITY URINE TURBID (CLEAR); COLOR URINE DARK YELLOW (YELLOW); KETONES URINE TRACE (NEGATIVE); LEUKOCYTE ESTERASE URINE 2+ (NEGATIVE); NITRITE URINE NEGATIVE (NEGATIVE); OCCULT BLOOD URINE 1+ (NEGATIVE); PROTEIN URINE 3+ (NEGATIVE); SPECIFIC GRAVITY URINE 1.029 (1.005-1.030)
[2023-02-08] MEDS: HYDROMORPHONE HCL/PF 2MG/ML CPJ IV PRN (05:27)
[2023-02-08] MEDS: DILTIAZEM HCL 60MG TABLET PO SCH ×3 (05:27→21:32)
[2023-02-08] MEDS: VANCOMYCIN 1000MG/20ML ORAL SOLN PO SCH ×3 (05:29→17:25)
[2023-02-08] MEDS: MEROPENEM 1,000 MG in SODIUM CHLORIDE 0.9% 100 ML IV SCH ×2 (05:29→17:25)
[2023-02-08] MEDS: BLOOD SUGAR DIAGNOSTIC STRIP TEST SCH ×4 (06:02→21:00)
[2023-02-08] MEDS: INSULIN LISPRO 100 UNITS/ML SUBCUT SCH ×4 (06:02→21:00)
[2023-02-08 06:57] LABS: HEMATOCRIT. 30.3 % (36.0-48.0); HEMOGLOBIN. 9.2 g/dL (12.0-16.0); MEAN CORPUSCULAR VOLUME 88.7 fL (81.0-99.0); MEAN PLATELET VOLUME 9.4 fl (7.4-10.4); PLATELET 279 x1000/uL (130-400); RED BLOOD CELL COUNT 3.41 mill/uL (4.2-5.4); RED CELL DISTRIBUTION WIDTH 18.9 % (11.6-14.6)
[2023-02-08] MEDS ORDERED: FUROSEMIDE 40MG/4ML VIAL IVP SCH (08:00)
[2023-02-08 08:58] LABS: CREATINE KINASE 19 IU/L (26-192)
[2023-02-08] MEDS: MENTHOL/LANOLIN/CALAMINE/ZN OX OINT 71GM TOP SCH ×4 (09:03→21:28)
[2023-02-08] MEDS: AMBRISENTAN 10MG TABLET PO SCH (09:04)
[2023-02-08] MEDS: PANTOPRAZOLE SODIUM 40 MG/VIAL IV SCH (09:04)
[2023-02-08] MEDS: METRONIDAZOLE 500 MG PREMIX 100 ML IV SCH ×2 (09:04→17:25)
[2023-02-08 10:39] LABS: PLATELET ESTIMATE NORMAL
[2023-02-08] MEDS: ATORVASTATIN CALCIUM 10MG TABLET PO SCH (21:27)
[2023-02-09] VITALS (52 sets, daily range): BP systolic 94–137; BP diastolic 39–100; PULSE 67–125; RESP 10–47; TEMP 97.7–98.3; O2SAT 94–99
[2023-02-09] MEDS: METRONIDAZOLE 500 MG PREMIX 100 ML IV SCH ×3 (00:07→15:08)
[2023-02-09] MEDS: VANCOMYCIN 1000MG/20ML ORAL SOLN PO SCH ×3 (00:07→11:00)
[2023-02-09] MEDS: IPRATROPIUM BROMIDE (0.02%) 0.5MG/2.5ML NEB HHN SCH ×4 (01:12→20:46)
[2023-02-09 05:26] LABS: HEMATOCRIT. 29.6 % (36.0-48.0); HEMOGLOBIN. 9.1 g/dL (12.0-16.0); MEAN CORPUSCULAR HEMOGLOBIN 27.2 pg (28.0-32.0); MEAN CORPUSCULAR VOLUME 88.8 fL (81.0-99.0); MEAN PLATELET VOLUME 9.2 fl (7.4-10.4); PLATELET 258 x1000/uL (130-400); RED BLOOD CELL COUNT 3.33 mill/uL (4.2-5.4); RED CELL DISTRIBUTION WIDTH 18.7 % (11.6-14.6)
[2023-02-09] MEDS: MEROPENEM 1,000 MG in SODIUM CHLORIDE 0.9% 100 ML IV SCH (05:34)
[2023-02-09] MEDS: DILTIAZEM HCL 60MG TABLET PO SCH ×3 (05:34→22:17)
[2023-02-09] MEDS: BLOOD SUGAR DIAGNOSTIC STRIP TEST SCH ×4 (05:35→21:00)
[2023-02-09] MEDS: INSULIN LISPRO 100 UNITS/ML SUBCUT SCH ×4 (06:16→21:00)
[2023-02-09] MEDS: DEXTROSE 50% WATER 50ML SYRINGE IV PRN ×4 (06:16→22:29)
[2023-02-09] MEDS: PANTOPRAZOLE SODIUM 40 MG/VIAL IV SCH (08:24)
[2023-02-09] MEDS: AMBRISENTAN 10MG TABLET PO SCH (08:24)
[2023-02-09] MEDS: MENTHOL/LANOLIN/CALAMINE/ZN OX OINT 71GM TOP SCH ×4 (08:24→21:00)
[2023-02-09] MEDS: HYDROMORPHONE HCL/PF 2MG/ML CPJ IV PRN ×2 (08:37→22:40)
[2023-02-09] MEDS ORDERED: FUROSEMIDE 40MG/4ML VIAL IVP NR (08:45)
[2023-02-09 10:42] LABS: NUCLEATED RED BLOOD CELLS 1 /100 WBC
[2023-02-09 10:43] LABS: PLATELET ESTIMATE NORMAL
[2023-02-09] MEDS ORDERED: DEXTROSE 5% WATER 1,000 ML IV SCH (14:30)
[2023-02-09] MEDS: MICAFUNGIN 100 MG in SODIUM CHLORIDE 0.9% 100 ML IV SCH (16:05)
[2023-02-09] MEDS: CEFEPIME 1,000 MG in DEXTROSE 5% WATER 50 ML IV SCH (17:14)
[2023-02-09] MEDS: ATORVASTATIN CALCIUM 10MG TABLET PO SCH (22:17)
[2023-02-10] VITALS (44 sets, daily range): BP systolic 108–159; BP diastolic 53–102; PULSE 75–110; RESP 6–32; TEMP 97.1–98.7; O2SAT 94–100
[2023-02-10] MEDS: METRONIDAZOLE 500 MG PREMIX 100 ML IV SCH ×3 (00:10→15:24)
[2023-02-10] MEDS: IPRATROPIUM BROMIDE (0.02%) 0.5MG/2.5ML NEB HHN SCH ×4 (02:12→21:53)
[2023-02-10 05:28] LABS: HEMATOCRIT. 30.6 % (36.0-48.0); HEMOGLOBIN. 9.3 g/dL (12.0-16.0); MEAN CORPUSCULAR HEMOGLOBIN 26.9 pg (28.0-32.0); MEAN CORPUSCULAR VOLUME 88.8 fL (81.0-99.0); MEAN PLATELET VOLUME 9.2 fl (7.4-10.4); PLATELET 240 x1000/uL (130-400); RED BLOOD CELL COUNT 3.45 mill/uL (4.2-5.4); RED CELL DISTRIBUTION WIDTH 19.5 % (11.6-14.6)
[2023-02-10 05:45] LABS: D-DIMER 11.34 mg/L FEU (<0.50); PARTIAL THROMBOPLASTIN TIME 32.9 sec (23.4-31.0); PROTHROMBIN TIME 11.2 sec (9.6-11.0)
[2023-02-10] MEDS: CEFEPIME 1,000 MG in DEXTROSE 5% WATER 50 ML IV SCH ×2 (05:48→18:28)
[2023-02-10] MEDS: DILTIAZEM HCL 60MG TABLET PO SCH ×3 (05:49→21:15)
[2023-02-10] MEDS: INSULIN LISPRO 100 UNITS/ML SUBCUT SCH ×4 (06:43→21:00)
[2023-02-10] MEDS: BLOOD SUGAR DIAGNOSTIC STRIP TEST SCH ×4 (06:43→21:05)
[2023-02-10] MEDS: AMBRISENTAN 10MG TABLET PO SCH (09:07)
[2023-02-10] MEDS: PANTOPRAZOLE SODIUM 40 MG/VIAL IV SCH (09:08)
[2023-02-10] MEDS: MENTHOL/LANOLIN/CALAMINE/ZN OX OINT 71GM TOP SCH ×4 (09:08→21:23)
[2023-02-10 10:09] LABS: BG CARBOXYHEMOGLOBIN 0.4 % (0.5-1.5); BG DEOXYHEMOGLOBIN 6.7 % (0.0-5.0); BG FRACTION INSPIRED OXYGEN 40; BG HCO3 ACT 23.5 mmol/L (22.0-26.0); BG METHEMOGLOBIN 0.3 % (0.0-1.5); BG OXYGEN SATURATION 93.3 % (92.0-98.5); BG OXYHEMOGLOBIN 92.6 % (94.0-97.0); BG PCO2 38.2 mmHg (35.0-45.0); BG PH 7.407 (7.350-7.450); BG SAMPLE SITE RIGHT RADIAL; BG TOTAL HEMOGLOBIN 10.2 g/dL (12.0-18.0); BG TOTAL RESPIRATORY RATE 26 b/min; BG VENT MODE MASK - BIPAP
[2023-02-10 10:22] LABS: PLATELET ESTIMATE NORMAL
[2023-02-10] MEDS: FUROSEMIDE 40MG/4ML VIAL IVP SCH (11:19)
[2023-02-10] MEDS: DEXTROSE 50% WATER 50ML SYRINGE IV PRN ×3 (11:49→21:15)
[2023-02-10] MEDS: MICAFUNGIN 100 MG in SODIUM CHLORIDE 0.9% 100 ML IV SCH (16:41)
[2023-02-10] MEDS: ATORVASTATIN CALCIUM 10MG TABLET PO SCH (21:14)
[2023-02-10] MEDS: HYDROMORPHONE HCL/PF 2MG/ML CPJ IV PRN (21:14)
[2023-02-11] VITALS (15 sets, daily range): BP systolic 101–122; BP diastolic 60–80; PULSE 77–114; RESP 13–28; TEMP 97.7–98.1; O2SAT 95–96
[2023-02-11] MEDS: METRONIDAZOLE 500 MG PREMIX 100 ML IV SCH ×3 (00:39→16:45)
[2023-02-11] MEDS: IPRATROPIUM BROMIDE (0.02%) 0.5MG/2.5ML NEB HHN SCH ×3 (02:03→14:18)
[2023-02-11] MEDS: CEFEPIME 1,000 MG in DEXTROSE 5% WATER 50 ML IV SCH ×2 (05:50→18:00)
[2023-02-11] MEDS: DILTIAZEM HCL 60MG TABLET PO SCH ×2 (05:50→14:51)
[2023-02-11 07:11] LABS: BASOPHILS % 1.2 % (0.0-2.0); EOSINOPHILS % 0.1 % (0.0-5.0); HEMATOCRIT. 29.4 % (36.0-48.0); LYMPHOCYTES % 7.9 % (20.0-50.0); MEAN CORPUSCULAR HEMOGLOBIN 26.7 pg (28.0-32.0); MEAN CORPUSCULAR VOLUME 87.6 fL (81.0-99.0); MEAN PLATELET VOLUME 9.9 fl (7.4-10.4); MONOCYTES % 6.3 % (2.0-8.0); NEUTROPHILS % 84.5 % (40.0-76.0); PLATELET 247 x1000/uL (130-400); RED BLOOD CELL COUNT 3.36 mill/uL (4.2-5.4); RED CELL DISTRIBUTION WIDTH 18.8 % (11.6-14.6)
[2023-02-11] MEDS: BLOOD SUGAR DIAGNOSTIC STRIP TEST SCH ×4 (07:46→21:00)
[2023-02-11] MEDS: INSULIN LISPRO 100 UNITS/ML SUBCUT SCH ×4 (07:47→21:00)
[2023-02-11] MEDS: HYDROMORPHONE HCL/PF 2MG/ML CPJ IV PRN ×2 (07:58→13:26)
[2023-02-11] MEDS: AMBRISENTAN 10MG TABLET PO SCH (09:35)
[2023-02-11] MEDS: PANTOPRAZOLE SODIUM 40 MG/VIAL IV SCH (09:35)
[2023-02-11] MEDS: FUROSEMIDE 40MG/4ML VIAL IVP SCH (09:35)
[2023-02-11] MEDS: MENTHOL/LANOLIN/CALAMINE/ZN OX OINT 71GM TOP SCH ×3 (09:35→17:12)
[2023-02-11] MEDS ORDERED: IOHEXOL-300 50 ML BOTTLE IV ONE (13:47)
[2023-02-11] MEDS: MICAFUNGIN 100 MG in SODIUM CHLORIDE 0.9% 100 ML IV SCH (17:48)
[2023-02-12] VITALS (7 sets, daily range): BP systolic 105–130; BP diastolic 60–78; PULSE 76–109; RESP 13–24; TEMP 98–98.5; O2SAT 93
[2023-02-12] MEDS: ATORVASTATIN CALCIUM 10MG TABLET PO SCH (00:06)
[2023-02-12] MEDS: MENTHOL/LANOLIN/CALAMINE/ZN OX OINT 71GM TOP SCH ×2 (00:06→09:08)
[2023-02-12] MEDS: HYDROMORPHONE HCL/PF 2MG/ML CPJ IV PRN (00:06)
[2023-02-12] MEDS: METRONIDAZOLE 500 MG PREMIX 100 ML IV SCH ×2 (00:07→08:00)
[2023-02-12] MEDS: DILTIAZEM HCL 60MG TABLET PO SCH ×2 (00:07→05:45)
[2023-02-12] MEDS: CEFEPIME 1,000 MG in DEXTROSE 5% WATER 50 ML IV SCH (05:45)
[2023-02-12 07:12] LABS: HEMATOCRIT. 30.8 % (36.0-48.0); HEMOGLOBIN. 9.4 g/dL (12.0-16.0); MEAN CORPUSCULAR HEMOGLOBIN 26.6 pg (28.0-32.0); MEAN CORPUSCULAR VOLUME 86.9 fL (81.0-99.0); MEAN PLATELET VOLUME 9.7 fl (7.4-10.4); PLATELET 294 x1000/uL (130-400); RED BLOOD CELL COUNT 3.55 mill/uL (4.2-5.4); RED CELL DISTRIBUTION WIDTH 19.6 % (11.6-14.6)
[2023-02-12 07:29] LABS: CHLORIDE 106 mEq/L (98-107)
[2023-02-12] MEDS: BLOOD SUGAR DIAGNOSTIC STRIP TEST SCH (07:30)
[2023-02-12] MEDS: INSULIN LISPRO 100 UNITS/ML SUBCUT SCH (08:00)
[2023-02-12] MEDS: AMBRISENTAN 10MG TABLET PO SCH (09:07)
[2023-02-12] MEDS: FUROSEMIDE 40MG/4ML VIAL IVP SCH (09:07)
[2023-02-12] MEDS: PANTOPRAZOLE SODIUM 40 MG/VIAL IV SCH (09:07)
[2023-02-13 13:45] LABS: NUCLEATED RED BLOOD CELLS 1 /100 WBC; PLATELET ESTIMATE NORMAL
== END 2023-02-12 14:35 | DRG 871 ==
LOC: MICUSO 15:28 → 5EST 02-10 18:15
PROVIDERS: ADMIT Internal Medicine; ATTEND Internal Medicine
PROC: 5A09357 Assistance with Respiratory Ventilation, Less than 24 Consecutive Hours, Continuous Positive Airway Pressure (ICD-10-PCS; 2023-02-08)
PROC: 5A09357 Assistance with Respiratory Ventilation, Less than 24 Consecutive Hours, Continuous Positive Airway Pressure (ICD-10-PCS; 2023-02-10)
PROC: 5A0945A Assistance with Respiratory Ventilation, 24-96 Consecutive Hours, High Flow/Velocity Cannula (ICD-10-PCS; 2023-02-10)
PROC: 0W9G3ZX Drainage of Peritoneal Cavity, Percutaneous Approach, Diagnostic (ICD-10-PCS; principal; 2023-02-11)
DX: A41.9 Sepsis, unspecified organism (principal); E43 Unspecified severe protein-calorie malnutrition; N17.0 Acute kidney failure with tubular necrosis; K75.0 Abscess of liver; I50.33 Acute on chronic diastolic (congestive) heart failure; J96.21 Acute and chronic respiratory failure with hypoxia; K65.8 Other peritonitis; B37.89 Other sites of candidiasis; E87.1 Hypo-osmolality and hyponatremia; I13.0 Hypertensive heart and chronic kidney disease with heart failure and stage 1 through stage 4 chronic kidney disease, or unspecified chronic kidney disease; I48.19 Other persistent atrial fibrillation; N39.0 Urinary tract infection, site not specified; I48.0 Paroxysmal atrial fibrillation; J44.9 Chronic obstructive pulmonary disease, unspecified; M10.9 Gout, unspecified; N18.9 Chronic kidney disease, unspecified; B96.5 Pseudomonas (aeruginosa) (mallei) (pseudomallei) as the cause of diseases classified elsewhere; D63.8 Anemia in other chronic diseases classified elsewhere; E11.22 Type 2 diabetes mellitus with diabetic chronic kidney disease; E78.5 Hyperlipidemia, unspecified; Z66 Do not resuscitate; E87.5 Hyperkalemia; G62.9 Polyneuropathy, unspecified; G89.29 Other chronic pain; K57.30 Diverticulosis of large intestine without perforation or abscess without bleeding; M48.061 Spinal stenosis, lumbar region without neurogenic claudication; F41.9 Anxiety disorder, unspecified; H40.9 Unspecified glaucoma; M19.90 Unspecified osteoarthritis, unspecified site; R26.9 Unspecified abnormalities of gait and mobility; R34 Anuria and oliguria; R53.81 Other malaise; Z79.4 Long term (current) use of insulin; Z85.038 Personal history of other malignant neoplasm of large intestine; Z86.718 Personal history of other venous thrombosis and embolism; Z86.73 Personal history of transient ischemic attack (TIA), and cerebral infarction without residual deficits; Z87.19 Personal history of other diseases of the digestive system; Z90.49 Acquired absence of other specified parts of digestive tract; Z95.828 Presence of other vascular implants and grafts; Z99.81 Dependence on supplemental oxygen
CPT/HCPCS: 36415; 36600; 71045; 74018; 74176; 76604; 76770; 76942; 80048; 80053; 80061; 81003; 82375; 82550; 82553; 82805; 82962; 83036; 83605; 84145; 84439; 84443; 84484; 85025; 85027; 85379; 87493; 93005; 93306; 94640; 94660; 97162; 97166; A6261; C1729; C1769; C9113; J0610; J0692; J1160; J1170; J1580; J1815; J1940; J2185; J2248; J2370; J2405; J3370; J3490; J7050; J7060; Q9967

== ENCOUNTER 2024-05-19 23:44 | Inpatient (IN) | payer MEDICARE, MEDICAID ==
[~2024-05-19] VITALS: Ht 162.6 cm; Wt 63.8 kg
[~2024-05-19 23:44] MED LIST changes: +AMBR10TA3 MT; +AMLO5TAB88 PO; +ASPI-1406 PO; -SILD20TA PO; +SILD20TA13 PO
[2024-05-20 00:11] VITALS: PULSE 81; RESP 22; O2SAT 96
[2024-05-20] MEDS: IPRATROPIUM BROMIDE (0.02%) 0.5MG/2.5ML NEB HHN STA (00:11)
[2024-05-20] MEDS: ALBUTEROL (0.083%) 2.5MG/3ML NEB HHN STA (00:11)
[2024-05-20] MEDS: METHYLPREDNISOLONE SOD SUCC 125MG/2ML (ACT-O-VIAL) IV STA (00:12)
[2024-05-20 00:23] LABS: BASOPHILS % 0.4 % (0.0-2.0); EOSINOPHILS % 4.4 % (0.0-5.0); HEMATOCRIT. 38.9 % (36.0-48.0); HEMOGLOBIN. 12.8 g/dL (12.0-16.0); LYMPHOCYTES % 10.3 % (20.0-50.0); MEAN CORPUSCULAR HEMOGLOBIN 28.7 pg (28.0-32.0); MEAN CORPUSCULAR HGB CONC 32.9 g/dL (31.0-37.0); MEAN PLATELET VOLUME 8.6 fl (7.4-10.4); MONOCYTES % 11.5 % (2.0-8.0); NEUTROPHILS % 73.4 % (40.0-76.0); PLATELET 240 x1000/uL (130-400); RED BLOOD CELL COUNT 4.47 mill/uL (4.2-5.4); RED CELL DISTRIBUTION WIDTH 19.6 % (11.6-14.6); WHITE BLOOD COUNT 7.9 x1000/uL (4.5-11.0)
[2024-05-20 00:29] LABS: CHLORIDE 108 mEq/L (98-107); POTASSIUM 4.4 mEq/L (3.5-5.1); SODIUM 140 mEq/L (136-145)
[2024-05-20 00:30] LABS: CALCIUM 9.6 mg/dL (8.7-10.4); CARBON DIOXIDE 25 mEq/L (21-32)
[2024-05-20 00:35] LABS: CREATININE 1.2 mg/dL (0.6-1.0); GLUCOSE 99 mg/dL (70-105); UREA NITROGEN BLOOD 23 mg/dL (9-23)
[2024-05-20 00:36] LABS: TROPONIN I HIGH SENSITIVITY 7 ng/L (3.0-34)
[2024-05-20] MEDS: SODIUM CHLORIDE 0.9% 1000ML BAG (SEPSIS BOLUS) IV ONE (01:03)
[2024-05-20] MEDS: PIPERACILLIN/TAZO 3.375G/50ML 50 ML IV ONE (01:03)
[2024-05-20] MEDS: VANCOMYCIN 1G PREMIX 200 ML IV ONE (01:39)
[2024-05-20 03:46] LABS: TROPONIN I HIGH SENSITIVITY 6 ng/L (3.0-34)
[2024-05-20] MEDS ORDERED: IPRATROPIUM/ALBUTEROL 0.5-3(2.5)MG/3ML NEB HHN PRN ×2 (08:30→14:45)
[2024-05-20] MEDS ORDERED: ONDANSETRON HCL 4MG/2ML INJ IV PRN (08:30)
[2024-05-20] MEDS: PIPERACILLIN/TAZO 3.375G/50ML 50 ML IV SCH (08:30)
[2024-05-20] MEDS: BLOOD SUGAR DIAGNOSTIC STRIP TEST SCH (11:45)
[2024-05-20] MEDS ORDERED: CLONIDINE 0.1MG TABLET PO PRN (12:00)
[2024-05-20] MEDS: INSULIN LISPRO 100 UNITS/ML SUBCUT SCH (12:15)
[2024-05-20] MEDS: LOSARTAN 25 MG TABLET PO SCH (14:16)
[2024-05-20] MEDS: DILTIAZEM HCL 60MG TABLET PO SCH (14:16)
[2024-05-20] MEDS: FUROSEMIDE 40MG/4ML VIAL IVP NR (14:16)
[2024-05-20] MEDS: PIPERACILLIN/TAZO 3.375G/50ML IV SCH (14:17)
[2024-05-21] VITALS (8 sets, daily range): BP systolic 110–158; BP diastolic 70–94; PULSE 78–106; RESP 16–20; TEMP 36.16956–36.6404; O2SAT 90–97
[2024-05-21] MEDS: VANCOMYCIN 750MG PREMIX 150 ML IV SCH (00:23)
[2024-05-21] MEDS: ACETYLCYSTEINE 200MG/ML 20% VIAL 4ML INH SCH (02:11)
[2024-05-21] MEDS: IPRATROPIUM/ALBUTEROL 0.5-3(2.5)MG/3ML NEB HHN SCH (02:11)
[2024-05-21 07:25] LABS: CARBON DIOXIDE 24 mEq/L (21-32); CHLORIDE 109 mEq/L (98-107); POTASSIUM 4.2 mEq/L (3.5-5.1); SODIUM 142 mEq/L (136-145)
[2024-05-21 07:26] LABS: CALCIUM 9.9 mg/dL (8.7-10.4)
[2024-05-21 07:31] LABS: CREATININE 1.3 mg/dL (0.6-1.0); GLUCOSE 87 mg/dL (70-105); UREA NITROGEN BLOOD 23 mg/dL (9-23)
[2024-05-21 07:33] LABS: THYROID STIMULATING HORMONE 0.32 uIU/mL (0.55-4.78)
[2024-05-21 07:34] LABS: HEMATOCRIT. 37.4 % (36.0-48.0); HEMOGLOBIN. 12.3 g/dL (12.0-16.0); MEAN CORPUSCULAR HEMOGLOBIN 29.1 pg (28.0-32.0); MEAN CORPUSCULAR VOLUME 88.1 fL (81.0-99.0); MEAN PLATELET VOLUME 8.9 fl (7.4-10.4); PLATELET 245 x1000/uL (130-400); RED BLOOD CELL COUNT 4.25 mill/uL (4.2-5.4); WHITE BLOOD COUNT 8.2 x1000/uL (4.5-11.0)
[2024-05-21 08:04] LABS: DIFFERENTIAL COMMENT 1
[2024-05-21] MEDS: ASPIRIN 81MG EC TABLET PO SCH (09:00)
[2024-05-21 15:17] LABS: ANISOCYTOSIS 1+; PLATELET ESTIMATE NORMAL
[2024-05-21 17:51] LABS: CLARITY URINE CLEAR (CLEAR); COLOR URINE YELLOW (YELLOW); GLUCOSE URINE NEGATIVE (NEGATIVE); KETONES URINE NEGATIVE (NEGATIVE); LEUKOCYTE ESTERASE URINE TRACE (NEGATIVE); NITRITE URINE NEGATIVE (NEGATIVE); OCCULT BLOOD URINE 1+ (NEGATIVE); PH URINE 5.5 (4.5-8.0); PROTEIN URINE 2+ (NEGATIVE); SPECIFIC GRAVITY URINE 1.014 (1.005-1.030); UROBILINOGEN URINE 0.2 E.U./dL (0.2-1.0)
[2024-05-21 18:19] LABS: BACTERIA URINE TRACE; SQUAMOUS EPITHELIAL CELL URINE FEW /lpf (RARE/1+)
[2024-05-21] MEDS: DEXTROSE 50% WATER 50ML SYRINGE IV PRN (20:22)
[2024-05-22] VITALS (9 sets, daily range): BP systolic 132–163; BP diastolic 71–93; PULSE 74–95; RESP 18–19; TEMP 35.2806–36.78072; O2SAT 95–98
[2024-05-22 07:58] LABS: BASOPHILS % 0.1 % (0.0-2.0); EOSINOPHILS % 0.6 % (0.0-5.0); HEMATOCRIT. 38.7 % (36.0-48.0); HEMOGLOBIN. 12.4 g/dL (12.0-16.0); LYMPHOCYTES % 11.9 % (20.0-50.0); MEAN CORPUSCULAR HEMOGLOBIN 28.2 pg (28.0-32.0); MEAN CORPUSCULAR HGB CONC 32.1 g/dL (31.0-37.0); MEAN CORPUSCULAR VOLUME 87.9 fL (81.0-99.0); MEAN PLATELET VOLUME 8.9 fl (7.4-10.4); MONOCYTES % 14.5 % (2.0-8.0); NEUTROPHILS % 72.9 % (40.0-76.0); PLATELET 255 x1000/uL (130-400); RED BLOOD CELL COUNT 4.41 mill/uL (4.2-5.4); RED CELL DISTRIBUTION WIDTH 19.6 % (11.6-14.6); WHITE BLOOD COUNT 7.6 x1000/uL (4.5-11.0)
[2024-05-22 08:49] LABS: POTASSIUM 3.5 mEq/L (3.5-5.1)
[2024-05-22 08:50] LABS: CALCIUM 9.4 mg/dL (8.7-10.4)
[2024-05-22 08:55] LABS: CREATININE 1.2 mg/dL (0.6-1.0)
[2024-05-22] MEDS: POTASSIUM CHLORIDE 20MEQ TABLET SR PO NR (11:44)
[2024-05-22] MEDS: FUROSEMIDE 40MG/4ML VIAL IVP NR (13:54)
[2024-05-23] VITALS (9 sets, daily range): BP systolic 142–169; BP diastolic 75–101; PULSE 77–103; RESP 15–22; TEMP 36.22512–36.9474; O2SAT 94–100
[2024-05-23 06:59] LABS: POTASSIUM 3.7 mEq/L (3.5-5.1)
[2024-05-23 07:00] LABS: CALCIUM 9.3 mg/dL (8.7-10.4)
[2024-05-23 07:05] LABS: CREATININE 1.1 mg/dL (0.6-1.0)
[2024-05-23 07:20] LABS: HEMATOCRIT 41.3 % (36.0-48.0); HEMOGLOBIN 13.1 g/dL (12.0-16.0); MEAN CORPUSCULAR HEMOGLOBIN 27.8 pg (28.0-32.0); MEAN CORPUSCULAR HGB CONC 31.8 g/dL (31.0-37.0); MEAN CORPUSCULAR VOLUME 87.2 fL (81.0-99.0); PLATELET 268 x1000/uL (130-400); RED BLOOD CELL COUNT 4.73 mill/uL (4.2-5.4); RED CELL DISTRIBUTION WIDTH 19.1 % (11.6-14.6); WHITE BLOOD COUNT 8.1 x1000/uL (4.5-11.0)
[2024-05-23] MEDS: FUROSEMIDE 40MG/4ML VIAL IVP NR (13:03)
[2024-05-23] MEDS: POTASSIUM CHLORIDE 10MEQ TABLET SR PO NR (13:04)
[2024-05-24] VITALS (12 sets, daily range): BP systolic 138–160; BP diastolic 79–94; PULSE 80–97; RESP 16–20; TEMP 35.78064–36.61404; O2SAT 96–100
[2024-05-24] MEDS: CLONIDINE 0.1MG TABLET PO PRN (00:13)
[2024-05-24 07:22] LABS: POTASSIUM 3.8 mEq/L (3.5-5.1)
[2024-05-24 07:23] LABS: CALCIUM 9.3 mg/dL (8.7-10.4)
[2024-05-24 07:27] LABS: CREATININE 1.1 mg/dL (0.6-1.0)
[2024-05-24 07:31] LABS: HEMATOCRIT. 42.9 % (36.0-48.0); HEMOGLOBIN. 13.6 g/dL (12.0-16.0); MEAN CORPUSCULAR HEMOGLOBIN 27.8 pg (28.0-32.0); MEAN CORPUSCULAR HGB CONC 31.8 g/dL (31.0-37.0); MEAN CORPUSCULAR VOLUME 87.5 fL (81.0-99.0); MEAN PLATELET VOLUME 8.9 fl (7.4-10.4); PLATELET 252 x1000/uL (130-400); RED CELL DISTRIBUTION WIDTH 18.9 % (11.6-14.6); WHITE BLOOD COUNT 7.4 x1000/uL (4.5-11.0)
[2024-05-24 07:38] LABS: DIFFERENTIAL COMMENT 1
[2024-05-24 08:54] LABS: PLATELET ESTIMATE NORMAL
[2024-05-24] MEDS: SILDENAFIL CITRATE 20MG TABLET PO SCH (21:33)
[2024-05-24] MEDS: IPRATROPIUM/ALBUTEROL 0.5-3(2.5)MG/3ML NEB HHN SCH (22:18)
[2024-05-25] VITALS (11 sets, daily range): BP systolic 113–147; BP diastolic 77–93; PULSE 76–94; RESP 16–20; TEMP 36.33624–36.55848; O2SAT 90–100
[2024-05-25 06:09] LABS: POTASSIUM 3.3 mEq/L (3.5-5.1)
[2024-05-25 06:10] LABS: CALCIUM 9.3 mg/dL (8.7-10.4)
[2024-05-25 06:15] LABS: CREATININE 1.2 mg/dL (0.6-1.0)
[2024-05-25 06:18] LABS: BASOPHILS % 0.3 % (0.0-2.0); HEMATOCRIT. 40.2 % (36.0-48.0); HEMOGLOBIN. 12.9 g/dL (12.0-16.0); LYMPHOCYTES % 13.6 % (20.0-50.0); MEAN CORPUSCULAR HEMOGLOBIN 28.2 pg (28.0-32.0); MEAN CORPUSCULAR HGB CONC 32.1 g/dL (31.0-37.0); MEAN CORPUSCULAR VOLUME 87.7 fL (81.0-99.0); MEAN PLATELET VOLUME 8.8 fl (7.4-10.4); MONOCYTES % 13.8 % (2.0-8.0); NEUTROPHILS % 67.3 % (40.0-76.0); PLATELET 230 x1000/uL (130-400); RED BLOOD CELL COUNT 4.59 mill/uL (4.2-5.4); RED CELL DISTRIBUTION WIDTH 18.9 % (11.6-14.6); WHITE BLOOD COUNT 7.1 x1000/uL (4.5-11.0)
[2024-05-25] MEDS: POTASSIUM CHLORIDE 20MEQ/PACKET PO NR ×2 (08:01→08:54)
[2024-05-25] MEDS: CEFTRIAXONE 1GM/50ML 50 ML IV SCH (16:25)
[2024-05-25 17:09] LABS: POTASSIUM 3.4 mEq/L (3.5-5.1)
[2024-05-25] MEDS ORDERED: CALCIUM CARBONATE 500MG TABLET CHEW PO PRN (23:00)
[2024-05-26] VITALS (11 sets, daily range): BP systolic 92–147; BP diastolic 57–77; PULSE 74–92; RESP 17–20; TEMP 36.3918–36.72516; O2SAT 95–99
[2024-05-26] MEDS: ACETAMINOPHEN 325MG TABLET PO PRN (06:08)
[2024-05-26] MEDS: DIPHENHYDRAMINE 50MG/ML VIAL IV PRN (12:11)
[2024-05-26] MEDS ORDERED: LOSA25TA26 PO (13:04)
[2024-05-26] MEDS ORDERED: LEVO750T68 MT (13:04)
[2024-05-26] MEDS: CEFTRIAXONE 2GM/50ML 50ML IV SCH (16:10)
== END 2024-05-26 17:50 | DRG 871 ==
LOC: ER 23:44 → EDBEDREQSVC 05-20 01:21 → EDBEDREQ 05-20 01:21 → 5WST 05-20 04:25 → 6EST 05-21 01:32 → 8WST 05-21 16:08
PROVIDERS: ADMIT Family Medicine Adult Medicine; ATTEND Family Medicine Adult Medicine
DX: A41.59 Other Gram-negative sepsis (principal); J18.9 Pneumonia, unspecified organism; J96.21 Acute and chronic respiratory failure with hypoxia; J44.0 Chronic obstructive pulmonary disease with (acute) lower respiratory infection; K21.9 Gastro-esophageal reflux disease without esophagitis; J84.10 Pulmonary fibrosis, unspecified; Z66 Do not resuscitate; E11.9 Type 2 diabetes mellitus without complications; E87.6 Hypokalemia; I08.1 Rheumatic disorders of both mitral and tricuspid valves; I48.0 Paroxysmal atrial fibrillation; I10 Essential (primary) hypertension; I27.21 Secondary pulmonary arterial hypertension; Z85.038 Personal history of other malignant neoplasm of large intestine; Z86.718 Personal history of other venous thrombosis and embolism; Z86.73 Personal history of transient ischemic attack (TIA), and cerebral infarction without residual deficits; Z90.49 Acquired absence of other specified parts of digestive tract; Z99.81 Dependence on supplemental oxygen
CPT/HCPCS: 36415; 71045; 71250; 80048; 80202; 81003; 82962; 83036; 83605; 83735; 83880; 84132; 84145; 84443; 84484; 85025; 85027; 85379; 87077; 87186; 93005; 93306; 93970; 94640; 97116; 97162; 97166; 99291; A6261; J0696; J1200; J1940; J2543; J2919; J3370; J7030; J7608

== ENCOUNTER 2024-06-15 15:46 | Inpatient (IN) | payer MEDICARE, MEDICAID ==
[~2024-06-15] VITALS: Ht 162.6 cm; Wt 62.7 kg
[~2024-06-15 15:46] MED LIST changes: +LEVO750T68 MT; +LOSA25TA26 PO
[2024-06-15] MEDS: SODIUM CHLORIDE 0.9% (SEPSIS BOLUS) IV ONE (19:10)
[2024-06-15] MEDS ORDERED: ENOXAPARIN 40MG/0.4ML SYR SUBCUT SCH (19:15)
[2024-06-15] MEDS ORDERED: ONDANSETRON HCL 4MG/2ML INJ IV PRN (19:15)
[2024-06-15] MEDS ORDERED: CLONIDINE 0.1MG TABLET PO PRN (19:15)
[2024-06-15] MEDS ORDERED: POTASSIUM CHLORIDE 20MEQ TABLET SR PO PRN (19:15)
[2024-06-15] MEDS ORDERED: DOCUSATE SODIUM 100MG CAPSULE PO PRN (19:15)
[2024-06-15] MEDS ORDERED: HYDROCODONE/ACETAMINOPHEN 5/325MG TABLET PO PRN (19:15)
[2024-06-15] MEDS ORDERED: MAGNESIUM/ALUMINUM HYDROXIDE/SIMETHICONE 30ML UDC PO PRN (19:15)
[2024-06-15] MEDS ORDERED: DEXTROSE 50% WATER 50ML SYRINGE IV PRN ×2 (19:15)
[2024-06-15] MEDS ORDERED: ACETAMINOPHEN 325MG TABLET PO PRN (19:15)
[2024-06-15] MEDS: LEVOFLOXACIN 750MG PREMIX 150 ML IV ONE (19:22)
[2024-06-15] MEDS ORDERED: NALOXONE HCL 0.4MG/ML VIAL IV PRN (19:30)
[2024-06-15 19:52] LABS: BG BASE EXCESS 0.8 mmol/L (-2.0-3.0); BG CARBOXYHEMOGLOBIN 0.6 % (0.5-1.5); BG DEOXYHEMOGLOBIN 13.4 % (0.0-5.0); BG HCO3 ACT 25.7 mmol/L (21.0-28.0); BG METHEMOGLOBIN 0.3 % (0.5-1.5); BG OXYGEN SATURATION 86.5 % (94.0-98.0); BG OXYHEMOGLOBIN 85.7 % (94.0-98.0); BG PCO2 42.3 mmHg (32.0-45.0); BG PH 7.402 (7.350-7.450); BG PO2 51.7 mmHg (83.0-108.0); BG TOTAL HEMOGLOBIN 13.4 g/dL (12.0-16.0); BG VENT MODE NASAL CANNULA
[2024-06-15 20:09] LABS: BASOPHILS % 0.7 % (0.0-2.0); DIFFERENTIAL COMMENT 0; EOSINOPHILS % 5.5 % (0.0-5.0); HEMATOCRIT. 40.9 % (36.0-48.0); HEMOGLOBIN. 13.2 g/dL (12.0-16.0); LYMPHOCYTES % 12.2 % (20.0-50.0); MEAN CORPUSCULAR HEMOGLOBIN 28.1 pg (28.0-32.0); MEAN CORPUSCULAR HGB CONC 32.3 g/dL (31.0-37.0); MEAN CORPUSCULAR VOLUME 86.8 fL (81.0-99.0); MEAN PLATELET VOLUME 8.7 fl (7.4-10.4); MONOCYTES % 13.6 % (2.0-8.0); PLATELET 273 x1000/uL (130-400); RED BLOOD CELL COUNT 4.72 mill/uL (4.2-5.4); RED CELL DISTRIBUTION WIDTH 19.4 % (11.6-14.6); WHITE BLOOD COUNT 5.5 x1000/uL (4.5-11.0)
[2024-06-15] MEDS: IPRATROPIUM/ALBUTEROL 0.5-3(2.5)MG/3ML NEB HHN PRN (20:12)
[2024-06-15 20:15] VITALS: PULSE 107; RESP 20; O2SAT 95
[2024-06-15 20:20] LABS: CHLORIDE 108 mEq/L (98-107); SODIUM 143 mEq/L (136-145)
[2024-06-15 20:21] LABS: CALCIUM 9.8 mg/dL (8.7-10.4); CARBON DIOXIDE 28 mEq/L (21-32)
[2024-06-15 20:26] LABS: CREATININE 1.1 mg/dL (0.6-1.0); GLUCOSE 77 mg/dL (70-105); TROPONIN I HIGH SENSITIVITY 8 ng/L (3.0-34); UREA NITROGEN BLOOD 16 mg/dL (9-23)
[2024-06-15 20:28] LABS: ALANINE AMINOTRANSFERASE < 7 IU/L (10-49); ALBUMIN 4.1 g/dL (3.2-4.8); ASPARTATE AMINOTRANSFERASE 11 IU/L (<34); BILIRUBIN DIRECT 0.1 mg/dL (<=3.0); BILIRUBIN TOTAL 0.4 mg/dL (0.1-1.0); PROTEIN TOTAL 6.9 g/dL (6.0-8.3)
[2024-06-15 20:31] LABS: PARTIAL THROMBOPLASTIN TIME 28.9 sec (23.4-31.0); PROTHROMBIN TIME 11.4 sec (9.6-11.0)
[2024-06-15] MEDS: INSULIN LISPRO 100 UNITS/ML SUBCUT SCH (21:00)
[2024-06-15] MEDS: BLOOD SUGAR DIAGNOSTIC STRIP TEST SCH (21:19)
[2024-06-15] MEDS: ENOXAPARIN 30MG/0.3ML SYR SUBCUT SCH (21:28)
[2024-06-15] MEDS: PANTOPRAZOLE SODIUM 40 MG/VIAL IV SCH (21:28)
[2024-06-15] MEDS: FUROSEMIDE 40MG/4ML VIAL IVP ONE (23:15)
[2024-06-15] MEDS: ASPIRIN 81MG TABLET PO ONE (23:15)
[2024-06-16] VITALS (11 sets, daily range): BP systolic 136–153; BP diastolic 76–93; PULSE 83–115; RESP 17–30; TEMP 36.114–37.0852; O2SAT 93–100
[2024-06-16 07:30] LABS: CHLORIDE 109 mEq/L (98-107)
[2024-06-16 07:31] LABS: CARBON DIOXIDE 24 mEq/L (21-32); SODIUM 143 mEq/L (136-145)
[2024-06-16 07:32] LABS: CALCIUM 9.7 mg/dL (8.7-10.4)
[2024-06-16 07:35] LABS: TROPONIN I HIGH SENSITIVITY 9 ng/L (3.0-34); UREA NITROGEN BLOOD 12 mg/dL (9-23)
[2024-06-16 07:37] LABS: GLUCOSE 63 mg/dL (70-105)
[2024-06-16 07:38] LABS: ALANINE AMINOTRANSFERASE < 7 IU/L (10-49); ALBUMIN 4.1 g/dL (3.2-4.8)
[2024-06-16 07:39] LABS: ASPARTATE AMINOTRANSFERASE 12 IU/L (<34); BASOPHILS % 0.4 % (0.0-2.0); BILIRUBIN DIRECT 0.2 mg/dL (<=3.0); BILIRUBIN TOTAL 0.5 mg/dL (0.1-1.0); EOSINOPHILS % 4.4 % (0.0-5.0); HEMATOCRIT. 40.9 % (36.0-48.0); HEMOGLOBIN. 12.8 g/dL (12.0-16.0); LYMPHOCYTES % 11.4 % (20.0-50.0); MEAN CORPUSCULAR HEMOGLOBIN 27.2 pg (28.0-32.0); MEAN CORPUSCULAR HGB CONC 31.2 g/dL (31.0-37.0); MEAN CORPUSCULAR VOLUME 87.1 fL (81.0-99.0); MEAN PLATELET VOLUME 8.5 fl (7.4-10.4); MONOCYTES % 12.2 % (2.0-8.0); NEUTROPHILS % 71.6 % (40.0-76.0); PHOSPHORUS 3.1 mg/dL (2.5-4.9); PLATELET 265 x1000/uL (130-400); PROTEIN TOTAL 6.8 g/dL (6.0-8.3); RED CELL DISTRIBUTION WIDTH 19.6 % (11.6-14.6); WHITE BLOOD COUNT 5.5 x1000/uL (4.5-11.0)
[2024-06-16 08:14] LABS: BG BASE EXCESS 0.5 mmol/L (-2.0-3.0); BG CARBOXYHEMOGLOBIN 1.1 % (0.5-1.5); BG DEOXYHEMOGLOBIN 14.7 % (0.0-5.0); BG HCO3 ACT 25.2 mmol/L (21.0-28.0); BG OXYGEN SATURATION 85.1 % (94.0-98.0); BG OXYHEMOGLOBIN 84.2 % (94.0-98.0); BG PH 7.407 (7.350-7.450); BG PO2 46.9 mmHg (83.0-108.0); BG SAMPLE SITE RIGHT BRACHIAL; BG TOTAL HEMOGLOBIN 13.7 g/dL (12.0-16.0); BG VENT MODE NASAL CANNULA
[2024-06-16 08:17] LABS: CLARITY URINE CLEAR (CLEAR); COLOR URINE YELLOW (YELLOW); GLUCOSE URINE NEGATIVE (NEGATIVE); KETONES URINE TRACE (NEGATIVE); LEUKOCYTE ESTERASE URINE TRACE (NEGATIVE); NITRITE URINE POSITIVE (NEGATIVE); OCCULT BLOOD URINE NEGATIVE (NEGATIVE); PH URINE 6.5 (4.5-8.0); PROTEIN URINE 2+ (NEGATIVE); SPECIFIC GRAVITY URINE 1.015 (1.005-1.030); UROBILINOGEN URINE 0.2 E.U./dL (0.2-1.0)
[2024-06-16 08:57] LABS: BACTERIA URINE 1+; SQUAMOUS EPITHELIAL CELL URINE FEW /lpf (RARE/1+)
[2024-06-16 08:58] LABS: WBC URINE 15-25 /hpf (0-2)
[2024-06-16 08:59] LABS: RBC URINE 0-2 /hpf (0-2)
[2024-06-16] MEDS: ENOXAPARIN 30MG/0.3ML SYR SUBCUT SCH (11:00)
[2024-06-16] MEDS: FUROSEMIDE 40MG/4ML VIAL IVP SCH (11:06)
[2024-06-16 11:55] LABS: INR 1.1
[2024-06-16] MEDS: DILTIAZEM HCL 60MG TABLET PO SCH (13:35)
[2024-06-17] VITALS (10 sets, daily range): BP systolic 126–152; BP diastolic 76–103; PULSE 87–109; RESP 16–25; TEMP 36.22512–36.83628; O2SAT 93–97
[2024-06-17 07:48] LABS: BASOPHILS % 0.4 % (0.0-2.0); EOSINOPHILS % 5.1 % (0.0-5.0); HEMATOCRIT. 41.8 % (36.0-48.0); LYMPHOCYTES % 10.8 % (20.0-50.0); MEAN CORPUSCULAR HEMOGLOBIN 27.1 pg (28.0-32.0); MEAN CORPUSCULAR HGB CONC 31.2 g/dL (31.0-37.0); MEAN CORPUSCULAR VOLUME 86.8 fL (81.0-99.0); MEAN PLATELET VOLUME 8.4 fl (7.4-10.4); MONOCYTES % 11.9 % (2.0-8.0); NEUTROPHILS % 71.8 % (40.0-76.0); PLATELET 265 x1000/uL (130-400); RED BLOOD CELL COUNT 4.81 mill/uL (4.2-5.4); RED CELL DISTRIBUTION WIDTH 19.3 % (11.6-14.6); WHITE BLOOD COUNT 6.1 x1000/uL (4.5-11.0)
[2024-06-17] MEDS ORDERED: SODIUM BICARBONATE 4% 2.4MEQ/5ML VIAL IV ONE (07:53)
[2024-06-17 08:15] LABS: CALCIUM 9.6 mg/dL (8.7-10.4); CHLORIDE 107 mEq/L (98-107); POTASSIUM 3.6 mEq/L (3.5-5.1); SODIUM 144 mEq/L (136-145)
[2024-06-17 08:16] LABS: CARBON DIOXIDE 28 mEq/L (21-32)
[2024-06-17 08:21] LABS: GLUCOSE 94 mg/dL (70-105); UREA NITROGEN BLOOD 9 mg/dL (9-23)
[2024-06-17] MEDS: ASPIRIN 81MG TABLET PO SCH (09:04)
[2024-06-17 09:13] LABS: PHOSPHORUS 3.1 mg/dL (2.5-4.9)
[2024-06-17] MEDS: FAMOTIDINE 20MG/2ML VIAL IV SCH (21:28)
[2024-06-18] VITALS: BP 127/83; PULSE 83; RESP 18; TEMP 36.114; O2SAT 91
[2024-06-18 04:00] VITALS: BP 149/90; PULSE 95; RESP 19; TEMP 36.114; O2SAT 95
[2024-06-18 07:37] LABS: CALCIUM 9.6 mg/dL (8.7-10.4); CARBON DIOXIDE 30 mEq/L (21-32); CHLORIDE 104 mEq/L (98-107); POTASSIUM 3.8 mEq/L (3.5-5.1); SODIUM 142 mEq/L (136-145)
[2024-06-18 07:42] LABS: CREATININE 0.9 mg/dL (0.6-1.0); GLUCOSE 91 mg/dL (70-105)
[2024-06-18 07:43] LABS: UREA NITROGEN BLOOD 10 mg/dL (9-23)
[2024-06-18 08:00] VITALS: BP 142/86; PULSE 90; RESP 19; TEMP 36.3918; TEMP 36.39180; O2SAT 95
[2024-06-18 08:49] VITALS: PULSE 89; RESP 18; O2SAT 98
[2024-06-18] MEDS ORDERED: FURO40TA5 MT (10:06)
[2024-06-18 12:33] VITALS: BP 126/73; PULSE 98; TEMP 97.8; O2SAT 95
== END 2024-06-18 17:32 | DRG 189 ==
LOC: ER 15:46 → 3WST 23:12 → EDBEDREQ 23:18 → EDBEDREQTM 23:18
PROVIDERS: ADMIT Family Medicine Adult Medicine; ATTEND Family Medicine Adult Medicine
DX: J96.01 Acute respiratory failure with hypoxia (principal); I13.0 Hypertensive heart and chronic kidney disease with heart failure and stage 1 through stage 4 chronic kidney disease, or unspecified chronic kidney disease; I50.32 Chronic diastolic (congestive) heart failure; I82.503 Chronic embolism and thrombosis of unspecified deep veins of lower extremity, bilateral; I27.20 Pulmonary hypertension, unspecified; I48.91 Unspecified atrial fibrillation; D72.821 Monocytosis (symptomatic); E11.22 Type 2 diabetes mellitus with diabetic chronic kidney disease; K21.9 Gastro-esophageal reflux disease without esophagitis; R62.7 Adult failure to thrive; R82.71 Bacteriuria; R26.89 Other abnormalities of gait and mobility; R80.9 Proteinuria, unspecified; J44.9 Chronic obstructive pulmonary disease, unspecified; E78.5 Hyperlipidemia, unspecified; N18.9 Chronic kidney disease, unspecified; Z95.828 Presence of other vascular implants and grafts; Z82.49 Family history of ischemic heart disease and other diseases of the circulatory system; Z83.3 Family history of diabetes mellitus; Z88.8 Allergy status to other drugs, medicaments and biological substances; Z88.5 Allergy status to narcotic agent; Z88.6 Allergy status to analgesic agent
CPT/HCPCS: 36415; 36600; 71045; 76604; 80048; 80076; 81003; 82375; 82805; 82962; 83036; 83605; 83735; 83880; 84100; 84145; 84484; 85025; 93005; 93970; 94640; 99285; J1650; J1940; J1956; J2470; J3490; J7030